=== PATIENT | female | born 1930 | race Caucasian/White ===

== ENCOUNTER → 2017-07-03 | Outpatient (CLI) | payer MEDICARE ==
[~2017-07-03] MED LIST: AC500T PO; ALPR.25T; ASP81CT PO; ASPI-86; CALC-665 PO; CALCIUM; CEPH500C PO; CETI10TA17 PO; DCS100C PO; DLT120CCR PO; DLT240CCR; FIBERCON; GLYC1SUP RC; GUAI1TBM7 PO; HYDR-3583 PO; MTF500T; MTR250T PO; MULT-608 PO; NITR-65 PO; ONDAN4ODT PO; OXYC-12; PRAZ2CAP; PRAZ2CAP PO; PRV20T; SIMV20TA3 PO; SMV10T PO; SULF1TAB38 PO; TRIA1TAB2
--- NOTE | 2017-07-03 19:43 | Diagnostic Imaging Report ---
Bilateral screening mammogram 2D views with tomosynthesis The current study was also evaluated with a Computer Aided Detection (CAD) system. INDICATION: Screening. No current complaints stated on the questionnaire. COMPARISON: 06/27/2016. FINDINGS: The breasts are composed of scattered fibroglandular densities. There are scattered benign-appearing calcifications seen. Allowing for technique and positional differences, no suspicious change is seen. IMPRESSION: No significant change. ACR BI-RADS Category 2: Benign findings. Result letter will be mailed to the patient. Note: At least 10% of breast cancer is not imaged by mammography. Dictated by: Dictated on workstation # [id number]
== END ==
LOC: RAD 14:31
PROVIDERS: ATTEND Internal Medicine
DX: Z12.31 Encounter for screening mammogram for malignant neoplasm of breast (principal)
CPT/HCPCS: 77067

== ENCOUNTER → 2017-08-06 | Outpatient (CLI) | payer MEDICARE ==
--- NOTE | 2017-08-06 16:42 | Diagnostic Imaging Report ---
PROCEDURE: CT lumbar spine without contrast. TECHNIQUE: Multiple contiguous axial images were obtained through the lumbar spine without the use of intravenous contrast. Sagittal and coronal reformations were then performed. INDICATION: Back pain, right hip pain. Comparison limited to abdominopelvic axial CT without reconstructions dated October 2010. FINDINGS: A stone measuring at least 7 mm within the left lower pole renal calyx extends outside the [id number]. The visualized portions of the kidneys suggest there is no hydronephrosis. The calcified abdominal aorta and renal arteries were nonaneurysmal. Bones do appear demineralized and osteopenia is suggested. This not only increases the risk of fracture but can make nondisplaced and nondepressed injuries radiographically imperceptible. The pedicles and pars appear to be intact. There is grade 1 presumed degenerative anterolisthesis of L4 on L5. The posterior cortices off 3-4 mm. Remaining levels were aligned anatomically. Lumbar statures are normal and no acute or suspicious endplate irregularity is apparent. T12-L1: There is no stenosis. L1-L2: Mild degenerative changes with no stenosis. L2-L3: There is ligamentous thickening, facet arthrosis, partly calcified bulging disc material and endplate osteophytes. The constellation of findings conspire to result in at least moderate severity of canal stenosis without significant foraminal narrowing. L3-L4: Ligamentous thickening, facet arthrosis, disc bulge and endplate osteophytes result in moderate to severe canal stenosis with at least mild degrees of biforaminal narrowing. L4-L5: The malalignment, the ligamentous thickening, bulky hypertrophic facet arthrosis and bulging disc material conspire to result in at least moderate canal stenosis with mild left and moderate severity right foraminal stenosis. L5-S1: There is no significant stenosis. IMPRESSION: 1. No acute lumbar osseous pathology. Degenerative changes believed to account for mild grade 1 listhesis of L4 on L5. Mid to lower spondylosis and facet arthrosis result in multilevel canal and foraminal stenoses of varying severities listed level by level above. 2. Apparent nonobstructing left renal calculus and nonaneurysmal atherosclerosis. Dictated by: Dictated on workstation # [id number]
--- NOTE | 2017-08-06 20:39 | Diagnostic Imaging Report ---
PA and lateral views of the chest. INDICATION: Cough. COMPARISON: 09/29/2014. FINDINGS: The lungs are hyperinflated. There are prominent interstitial markings which appear to be chronic. No focal airspace consolidation. The heart size is mildly enlarged. No effusion or pneumothorax. The mediastinum and luis a appear unremarkable. There is suggestion of old left rib fractures. IMPRESSION: Cardiomegaly. COPD. Dictated by: Dictated on workstation # [id number]
== END ==
LOC: RAD 13:59
PROVIDERS: ATTEND Internal Medicine
DX: M48.061 Spinal stenosis, lumbar region without neurogenic claudication (principal); M51.26 Other intervertebral disc displacement, lumbar region; M99.73 Connective tissue and disc stenosis of intervertebral foramina of lumbar region; M47.816 Spondylosis without myelopathy or radiculopathy, lumbar region; M43.16 Spondylolisthesis, lumbar region; M46.86 Other specified inflammatory spondylopathies, lumbar region; I51.7 Cardiomegaly; J44.9 Chronic obstructive pulmonary disease, unspecified
CPT/HCPCS: 71020; 72131

== ENCOUNTER → 2018-07-09 | Outpatient (CLI) | payer MEDICARE ==
--- NOTE | 2018-07-10 19:06 | Diagnostic Imaging Report ---
INDICATION: Routine screening. COMPARISON: Prior mammogram from 07/03/2017 and 06/27/2016. EXAMINATION: 2D and 3D bilateral screening mammography was performed with CAD. FINDINGS: Scattered fibroglandular densities are identified, bilaterally. There are benign calcifications scattered throughout both breasts. No mass or malignant appearing microcalcifications are seen. The axillae are unremarkable. IMPRESSION: No mammographic features suspicious for malignancy are identified. ACR BI-RADS Category 2: Benign findings. Result letter will be mailed to the patient. Note: At least 10% of breast cancer is not imaged by mammography. Dictated by: Dictated on workstation # [id number]
== END ==
LOC: RAD 15:28
PROVIDERS: ATTEND Nurse Practitioner Family
DX: Z12.31 Encounter for screening mammogram for malignant neoplasm of breast (principal)
CPT/HCPCS: 77067

== ENCOUNTER 2019-05-24 10:05 | Emergency (ER) | payer MEDICARE ==
[~2019-05-24] VITALS: Ht 147 cm; Wt 64.3 kg
[2019-05-24] MEDS ORDERED: ONDANSETRON 4 MG/2 ML (SDV) Z0FRAN IVP ONE (10:45)
[2019-05-24 10:55] LABS: BILIRUBIN,URINE NEGATIVE (NEGATIVE); CLARITY,URINE CLEAR; COLOR,URINE YELLOW; GLUCOSE, URINE (UA) NEGATIVE (NEGATIVE); KETONES,URINE NEGATIVE (NEGATIVE); LEUKOCYTE ESTERASE ,URINE 3+ (NEGATIVE); NITRITE,URINE POSITIVE (NEGATIVE); PH,URINE 5 (5-9); PROTEIN,URINE 2+ (NEGATIVE); UROBILINOGEN,URINE NORMAL (NORMAL)
[2019-05-24 11:05] LABS: BACTERIA,URINE LARGE /HPF; SQUAMOUS EPITHELIAL CELL,UR RARE /HPF; WBC,URINE TNTC /HPF
[2019-05-24 11:11] VITALS: BP 146/63
[2019-05-24 11:14] LABS: BASOPHILS # (AUTO) 0.1 10^3/uL (0.0-0.1); BASOPHILS % (AUTO) 1 % (0-10); EOSINOPHILS # (AUTO) 0.1 10^3/uL (0.0-0.3); EOSINOPHILS % (AUTO) 2 % (0-10); HEMATOCRIT 33 % (35-52); HEMOGLOBIN 10.7 G/DL (11.5-16.0); LYMPHOCYTES # (AUTO) 0.9 X 10^3 (1.0-4.0); LYMPHOCYTES % (AUTO) 20 % (12-44); MEAN CORPUSCULAR HEMOGLOBIN 29 PG (25-34); MEAN CORPUSCULAR HGB CONC 33 G/DL (32-36); MEAN CORPUSCULAR VOLUME 88 FL (80-99); MEAN PLATELET VOLUME 12.3 FL (7.4-10.4); MONOCYTES # (AUTO) 0.4 X 10^3 (0.0-1.0); MONOCYTES % (AUTO) 10 % (0-12); NEUTROPHILS # (AUTO) 3.1 X 10^3 (1.8-7.8); NEUTROPHILS % (AUTO) 68 % (42-75); PLATELET COUNT 149 10^3/uL (130-400); RED CELL DISTRIBUTION WIDTH 12.7 % (10.0-14.5); WHITE BLOOD COUNT 4.6 10^3/uL (4.3-11.0)
[2019-05-24 11:23] LABS: PROTHROMBIN TIME PATIENT 13.7 SEC (12.2-14.7)
--- NOTE | 2019-05-24 11:25 | Diagnostic Imaging Report ---
EXAMINATION: CT head without contrast. TECHNIQUE: Multiple contiguous axial images were obtained through the brain without the use of intravenous contrast. All CT scans use one or more of the following dose optimizing techniques: automated exposure control, MA and/or KvP adjustment based on a patient size and exam type, or iterative reconstruction. HISTORY: Headache FINDINGS: No comparison available The avalos-white matter differentiation is normal. No mass effect or midline shift. The ventricles are normal in size and configuration. Basilar cisterns are patent. There are no intra- or extra-axial fluid collections. There is no intracranial hemorrhage. There have been bilateral lens replacements. Mastoid air cells are clear. No soft tissue abnormality is seen. No osseus lesions or fractures are seen. IMPRESSION: 1. No acute intracranial abnormality. Dictated by: Dictated on workstation # [id number]
--- NOTE | 2019-05-24 11:28 | Diagnostic Imaging Report ---
EXAMINATION: Chest 1 view HISTORY: Headache FINDINGS: Comparison is 08/06/2017. Left subclavian pacemaker is present with leads in the right atrium and right ventricle. There is minimal left base atelectasis. No pneumothorax. No edema or pneumonia. Heart size is normal. IMPRESSION: 1. Minimal left base atelectasis. Dictated by: Dictated on workstation # [id number]
[2019-05-24 11:32] LABS: ALANINE AMINOTRANSFERASE 16 U/L (0-55); ALKALINE PHOSPHATASE 56 U/L (40-136); BILIRUBIN,TOTAL 0.4 MG/DL (0.1-1.0); BUN/CREATININE RATIO 21; CALCIUM 9.2 MG/DL (8.5-10.1); CARBON DIOXIDE 22 MMOL/L (21-32); CHLORIDE 108 MMOL/L (98-107); CREATININE SERUM 1.15 MG/DL (0.60-1.30); GFR ESTIMATED 45; GLUCOSE 183 MG/DL (70-105); POTASSIUM 4.1 MMOL/L (3.6-5.0); SODIUM 139 MMOL/L (135-145); TOTAL PROTEIN 7.1 GM/DL (6.4-8.2)
[2019-05-24 11:52] LABS: TSH (THYROID ANALYZER) 0.18 UIU/ML (0.35-4.94)
[2019-05-24] MEDS ORDERED: KETOROLAC 30 MG/ML VIAL ONE (12:17)
[2019-05-24] MEDS ORDERED: CIPR-225 PO (12:18)
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
[2019-05-24 12:22] VITALS: BP 163/38
[2019-05-24] MEDS ORDERED: KETOROLAC 15 MG/ML VIAL IVP ONE (12:30)
--- NOTE | 2019-05-27 15:42 | NUR ---
TALKED WITH PT CONCERNING THE CIPRO BEING RESISTANT TO THE BACTERIA THAT GREW OUT IN HER URINE. EXPLAINED THAT WE WANTED TO START HER ON MACROBID. PT STATES SHE IS ALLERGIC TO IT. ADVISED HER THAT IT WAS NOT LISTED A ALLERGY ET PT STATES SHE IS ALLERGIC TO IT. PT STATES SHE IS MUCH BETTER AND HAS AN APPT WITH [facility] NEXT WEEK. ALSO STATES IF SHE BECOMES WORSE SHE WILL FOLLOW UP WITH DR PISANO.
== END 2019-05-24 12:31 | disposition home or self-care (01) ==
LOC: ER 10:05 → EDUNIT# 10:05 → ER 12:31
DX: R03.0 Elevated blood-pressure reading, without diagnosis of hypertension (principal); N39.0 Urinary tract infection, site not specified; F41.9 Anxiety disorder, unspecified; Z79.82 Long term (current) use of aspirin; Z95.0 Presence of cardiac pacemaker; Z90.710 Acquired absence of both cervix and uterus; Z87.828 Personal history of other (healed) physical injury and trauma; Z88.0 Allergy status to penicillin; Z88.2 Allergy status to sulfonamides; Z88.8 Allergy status to other drugs, medicaments and biological substances
CPT/HCPCS: 36415; 70450; 71045; 80053; 81000; 83735; 83880; 84439; 84443; 84484; 85025; 85610; 85730; 87077; 87088; 87186; 93005; 93041

== ENCOUNTER → 2019-07-02 | Outpatient (CLI) | payer MEDICARE ==
[~2019-07-02] MED LIST changes: +CIPR-225 PO
== END ==
LOC: CARD 12:19
PROVIDERS: ATTEND Internal Medicine Interventional Cardiology
DX: I08.0 Rheumatic disorders of both mitral and aortic valves (principal)
CPT/HCPCS: 93306

== ENCOUNTER → 2019-07-10 | Outpatient (CLI) | payer MEDICARE ==
[~2019-07-10] MED LIST changes: +ONDA4TAB11 SL
--- NOTE | 2019-07-13 08:45 | Diagnostic Imaging Report ---
INDICATION: Screening. TECHNIQUE: The current study was also evaluated with a Computer Aided Detection (CAD) system. 3D Tomographic imaging was also performed. 3D tomosynthesis was performed and reviewed. COMPARISON: 07/09/2018, 07/03/2017, and 06/27/2016. FINDINGS: There are scattered fibroglandular densities bilaterally. There are benign type calcifications. There is no dominant mass, spiculated lesion, or suspicious calcification identified. The skin, nipples, and axillae are unremarkable. IMPRESSION: Benign findings. ACR BI-RADS Category 2: Benign findings. Result letter will be mailed to the patient. Note: At least 10% of breast cancer is not imaged by mammography. Dictated by: Dictated on workstation # [id number]
== END ==
LOC: RAD 14:13
PROVIDERS: ATTEND Internal Medicine
DX: Z12.31 Encounter for screening mammogram for malignant neoplasm of breast (principal)
CPT/HCPCS: 77067

== ENCOUNTER 2019-08-06 18:32 | Emergency (ER) | payer MEDICARE ==
[~2019-08-06] VITALS: Ht 149 cm; Wt 62.0 kg
[~2019-08-06 18:32] MED LIST changes: -ONDA4TAB11 SL
[2019-08-06] MEDS ORDERED: NS IV 1000 ML 1,000 ML IV ONE (18:50)
[2019-08-06] MEDS ORDERED: KETOROLAC 30 MG/ML VIAL IVP ONE (19:00)
[2019-08-06] MEDS ORDERED: ONDANSETRON 4 MG/2 ML (SDV) Z0FRAN IVP ONE (19:00)
[2019-08-06 19:02] LABS: BASOPHILS % (AUTO) 0 % (0-10); EOSINOPHILS % (AUTO) 1 % (0-10); HEMATOCRIT 35 % (35-52); HEMOGLOBIN 11.4 G/DL (11.5-16.0); LYMPHOCYTES # (AUTO) 0.4 X 10^3 (1.0-4.0); LYMPHOCYTES % (AUTO) 5 % (12-44); MEAN CORPUSCULAR HEMOGLOBIN 29 PG (25-34); MEAN CORPUSCULAR HGB CONC 32 G/DL (32-36); MEAN CORPUSCULAR VOLUME 88 FL (80-99); MEAN PLATELET VOLUME 11.6 FL (7.4-10.4); MONOCYTES # (AUTO) 0.6 X 10^3 (0.0-1.0); MONOCYTES % (AUTO) 7 % (0-12); NEUTROPHILS # (AUTO) 7.2 X 10^3 (1.8-7.8); NEUTROPHILS % (AUTO) 87 % (42-75); PLATELET COUNT 128 10^3/uL (130-400); RED CELL DISTRIBUTION WIDTH 14.1 % (10.0-14.5); WHITE BLOOD COUNT 8.2 10^3/uL (4.3-11.0)
[2019-08-06 19:22] LABS: ALBUMIN 4.2 GM/DL (3.2-4.5); BILIRUBIN,TOTAL 0.5 MG/DL (0.1-1.0); CREATININE SERUM 1.11 MG/DL (0.60-1.30); POTASSIUM 4.6 MMOL/L (3.6-5.0); TOTAL PROTEIN 6.8 GM/DL (6.4-8.2)
[2019-08-06 19:28] LABS: BAND NEUTROPHILS 6 %; LYMPHOCYTES % (MANUAL) 6 %; MONOCYTES % (MANUAL) 3 %; NEUTROPHILS % (MANUAL) 85 %; RBC MORPH NORMAL
--- NOTE | 2019-08-06 19:36 | ED General ---
General Chief Complaint: Abdominal/GI Problems Stated Complaint: UPSET STOMACH, HEADACHE, CHILLS,BLOOD SUGAR HIGH Nursing Triage Note: pt presents to ED with c/o nausea and vomiting and feelings of "being sick to her stomach" since 1100. pt also reports bilateral neck pain x 3 weeks and elevated BSG. Nursing Sepsis Screen: Possible Severe Sepsis Risk Source of Information: Patient Exam Limitations: No Limitations History of Present Illness Date Seen by Provider: Aug 06, 2019 Time Seen by Provider: 18:42 Initial Comments This 88-year-old woman presents to the emergency room with complaints of feeling very nauseous starting around 11:00. She did vomit a little bit. She feels shaky and has had headache. She has been struggling with some chronic neck pain for quite some time that is exacerbated today. Her oral intake has been poor. Blood sugar this morning was over 200. More recently was 189. She did not take her medications this morning due to nausea. She denies any significant abdominal pain or urinary symptoms. 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 Macdonald. She is accompanied by her daughter. She also has some chronic cough. Allergies and Home Medications Allergies Coded Allergies: Amoxicillin (Verified Allergy, Unknown, 04/23/09) Sulfa (Sulfonamides) (Verified Allergy, Unknown, 04/24/09) Uncoded Allergies: TRIMOX (Allergy, Mild, 03/31/09) ENVIRONMENTAL (Allergy, 10/12/10) nasal drainage Home Medications Aspirin 81 Mg Chew, 81 MG PO DAILY, (Reported) Calcium Carb/Vit D3/Minerals 1 Each Tab.chew, 1 EACH PO DAILY, (Reported) Cephalexin Monohydrate 500 Mg Capsule, 1 EACH PO TID, (Reported) Cetirizine Hcl 10 Mg Tablet, 10 MG PO DAILY, (Reported) Ciprofloxacin HCl 500 Mg Tablet, 500 MG PO BID Prescribed by: ELIAN TAYLOR on 05/24/19 1218 Diltiazem Hcl 120 Mg Cap.sr.24h, 1 CAP PO DAILY, (Reported) DO NOT CRUSH Docusate Sodium 100 Mg Cap, 100-200 MG PO DAILY, (Reported) Glycerin 1 Supp.rect Supp.rect, 1 SUPP.RECT RC, (Reported) Guaifenesin/Dextromethorphan 1 Each Tab, 1 EACH PO DAILY, (Reported) Hydrocodone Bit/Acetaminophen 1 Tab Tab, 1-2 EA PO Q4HR PRN, (Reported) Metronidazole 250 Mg Tab, 1 EACH PO TID, (Reported) Multivitamins 1 Tab Tablet, 1 TAB PO DAILY, (Reported) Ondansetron 4 Mg Tab.rapdis, 4 MG SL Q4H Prescribed by: FLAVIA VARELA on 08/06/192020 Prazosin Hcl 2 Mg Capsule, 2 MG PO TID, (Reported) Simvastatin 20 Mg Tablet, 20 MG PO DAILY, (Reported) Patient Home Medication List Home Medication List Reviewed: Yes Review of Systems Review of Systems Constitutional: see HPI EENTM: no symptoms reported Respiratory: see HPI Cardiovascular: no symptoms reported Gastrointestinal: see HPI Genitourinary: no symptoms reported Musculoskeletal: no symptoms reported Skin: no symptoms reported Psychiatric/Neurological: See HPI Hematologic/Lymphatic: No Symptoms Reported Immunological/Allergic: no symptoms reported Past Xbmcxgp-Shrjiz-Subrum Hx Past Med/Social Hx: Reviewed and Corrections made Patient Social History Alcohol Use: Denies Use Recreational Drug Use: No 2nd Hand Smoke Exposure: No Recent Foreign Travel: No Contact w/Someone Who Travel: No Recent Infectious Disease Expo: No Recent Hopitalizations: No (PACEMAKER PLACED 03/2019) Seasonal Allergies Seasonal Allergies: No Past Medical History Surgeries: Yes Abdominal, Appendectomy, Eye Surgery, Gallbladder, Hysterectomy, Oophorectomy, Orthopedic, Pacemaker, Tonsillectomy, Tracheostomy Respiratory: No Cardiac: Yes (PACEMAKER; ? 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 Sexually Transmitted Disease: No Genitourinary: Yes UTI-Chronic Gastrointestinal: Yes (RADHA WITH ERCP AND COMMOND DUCT STONE REMOVAL 2010) Chronic Constipation, Gall Bladder Disease Musculoskeletal: Yes Arthritis, Fractures Endocrine: Yes Diabetes, Non-Insulin dep HEENT: Yes Cataract Cancer: No Psychosocial: Yes Sleep Difficulties, Anxiety Integumentary: No Blood Disorders: No Physical Exam Vital Signs Vital Signs - First Documented 08/06/19 19:13 Temp 36.6 Pulse 108 Resp 22 B/P (MAP) 138/77 (97) Pulse Ox 97 O2 Delivery Room Air Capillary Refill : Less Than 3 Seconds Height, Weight, BMI Height: '" Weight: lbs. oz. kg; 27.00 BMI Method:Stated General Appearance: No Apparent Distress, WD/WN HEENT: PERRL/EOMI, Normal ENT Inspection, Other (oropharynx somewhat dry) Neck: Normal Inspection Respiratory: Lungs Clear, Normal Breath Sounds, No Accessory Muscle Use, No Respiratory Distress Cardiovascular: No Edema, No Murmur, Tachycardia Gastrointestinal: Normal Bowel Sounds, Non Tender, Soft Extremity: Normal Inspection, No Pedal Edema Neurologic/Psychiatric: Alert, Oriented x3, No Motor/Sensory Deficits, Normal Mood/Affect, director education II-XII Norm as Tested Skin: Normal Color, Warm/Dry Progress/Results/Core Measures Suspected Sepsis Recent Fever Within 48 Hours: No Infection Criteria Present: Suspected New Infection New/Unexplained Altered Menta: No Sepsis Screen: Possible Severe Sepsis Risk SIRS Temperature: Pulse: 108 Respiratory Rate: 22 Laboratory Tests 08/06/19 18:55: White Blood Count 8.2 Blood Pressure 138 /77 Mean: 97 Laboratory Tests 08/06/19 18:55: Creatinine 1.11, Platelet Count 128L, Total Bilirubin 0.5 Results/Orders Lab Results Laboratory Tests Test 08/06/19 18:55 08/06/19 19:35 Range/Units White Blood Count 8.2 4.3-11.0 10^3/uL Red Blood Count 4.00 L 4.35-5.85 10^6/uL Hemoglobin 11.4 L 11.5-16.0 G/DL Hematocrit 35 35-52 % Mean Corpuscular Volume 88 80-99 FL Mean Corpuscular Hemoglobin 29 25-34 PG Mean Corpuscular Hemoglobin Concent 32 32-36 G/DL Red Cell Distribution Width 14.1 10.0-14.5 % Platelet Count 128 L 130-400 10^3/uL Mean Platelet Volume 11.6 H 7.4-10.4 FL Neutrophils (%) (Auto) 87 H 42-75 % Lymphocytes (%) (Auto) 5 L 12-44 % Monocytes (%) (Auto) 7 0-12 % Eosinophils (%) (Auto) 1 0-10 % Basophils (%) (Auto) 0 0-10 % Neutrophils # (Auto) 7.2 1.8-7.8 X 10^3 Lymphocytes # (Auto) 0.4 L 1.0-4.0 X 10^3 Monocytes # (Auto) 0.6 0.0-1.0 X 10^3 Eosinophils # (Auto) 0.0 0.0-0.3 10^3/uL Basophils # (Auto) 0.0 0.0-0.1 10^3/uL Neutrophils % (Manual) 85 % Lymphocytes % (Manual) 6 % Monocytes % (Manual) 3 % Band Neutrophils 6 % Blood Morphology Comment NORMAL Sodium Level 139 135-145 MMOL/L Potassium Level 4.6 3.6-5.0 MMOL/L Chloride Level 108 H 98-107 MMOL/L Carbon Dioxide Level 19 L 21-32 MMOL/L Anion Gap 12 5-14 MMOL/L Blood Urea Nitrogen 31 H 7-18 MG/DL Creatinine 1.11 0.60-1.30 MG/DL Estimat Glomerular Filtration Rate 46 BUN/Creatinine Ratio 28 Glucose Level 182 H 70-105 MG/DL Calcium Level 9.0 8.5-10.1 MG/DL Corrected Calcium 8.8 8.5-10.1 MG/DL Total Bilirubin 0.5 0.1-1.0 MG/DL Aspartate Amino Transf (AST/SGOT) 19 5-34 U/L Alanine Aminotransferase (ALT/SGPT) 18 0-55 U/L Alkaline Phosphatase 52 40-136 U/L Total Protein 6.8 6.4-8.2 GM/DL Albumin 4.2 3.2-4.5 GM/DL Lipase 16 8-78 U/L Urine Color YELLOW Urine Clarity CLEAR Urine pH 5.5 5-9 Urine Specific Catarina >=1.030 1.016-1.022 Urine Protein TRACE NEGATIVE Urine Glucose (UA) NEGATIVE NEGATIVE Urine Ketones NEGATIVE NEGATIVE Urine Nitrite NEGATIVE NEGATIVE Urine Bilirubin NEGATIVE NEGATIVE Urine Urobilinogen 0.2 < = 1.0 MG/DL Urine Leukocyte Esterase NEGATIVE NEGATIVE Urine RBC (Auto) NEGATIVE NEGATIVE Urine RBC 0-2 /HPF Urine WBC 2-5 /HPF Urine Crystals NONE /LPF Urine Bacteria TRACE /HPF Urine Casts NONE /LPF Urine Mucus NEGATIVE /LPF Urine Culture Indicated NO Micro Results Microbiology 08/06/19 Influenza Types A,B Antigen (APOORVA) - Final, Complete My Orders Orders - FLAVIA MCNEAL MD Cbc With Automated Diff (08/06/19 18:38) Comprehensive Metabolic Panel (08/06/19 18:38) Lipase (08/06/19 18:38) Ua Culture If Indicated (08/06/19 18:38) Ed Iv/Invasive Line Start (08/06/19 18:38) Ns Iv 1000 Ml (Sodium Chloride 0.9%) (08/06/19 18:50) Ondansetron Injection (Zofran Injectio (08/06/19 19:00) Chest 1 View, Ap/Pa Only (08/06/19 18:50) Influenza A And B Antigens (08/06/19 18:50) Ketorolac Injection (Toradol Injection) (08/06/19 19:00) Manual Differential (08/06/19 18:55) Medications Given in ED Current Medications Medications Dose Ordered Sig/Anat Route Start Time Stop Time Status Last Admin Dose Admin Ketorolac Tromethamine 10 mg ONCE ONCE IVP 08/06/19 19:00 08/06/19 19:01 DC 08/06/19 19:04 10 MG Ondansetron HCl 8 mg ONCE ONCE IVP 08/06/19 19:00 08/06/19 19:01 DC 08/06/19 19:03 8 MG Sodium Chloride 1,000 ml @ 0 mls/hr Q0M ONCE IV 08/06/19 18:50 08/06/19 18:52 DC 08/06/19 19:03 1,000 MLS/HR Vital Signs/I&O 08/06/19 08/06/19 19:13 20:19 Temp 36.6 Pulse 108 89 Resp 22 18 B/P (MAP) 138/77 (97) 119/64 Pulse Ox 97 96 O2 Delivery Room Air Room Air Capillary Refill : Less Than 3 Seconds Blood Pressure Mean: 97 POS Progress Note #1: Time: 19:35 Progress Note Workup is in progress. A liter of IV fluid has been ordered along with Zofran for nausea. Toradol 10 mg IV was ordered for headache and neck pain. Progress Note #2: Time: 20:25 Progress Note Patient was feeling much improved after hydration, Toradol, and Zofran. I instructed her not to take her amlodipine tonight as she takes multiple other doses of antihypertensives in her systolic blood pressure is only 119 at present. Diagnostic Imaging Diagonstic Imaging: Xray Plain Films/CT/US/NM/MRI: chest Comments Chest x-ray viewed by me and report reviewed. See report below: NAME: JUAN MIGUEL [facility]ILLAFANA [facility] REC#: [id number] PT STATUS: REG ER : 1930 PHYSICIAN: FLAVIA MCNEAL MD ADMIT DATE: 08/06/19/ER Signed POSDate of Exam:08/06/19 CHEST 1 VIEW, AP/PA ONLY EXAMINATION: Chest radiograph, portable AP view. DATE: 08/06/2019 7:13 PM. INDICATION: 88-year-old female, chest pain. COMPARISON: May 24, 2019. FINDINGS: There is a left-sided cardiac assist device with leads. Heart size and mediastinal contours are unchanged. There is no identified pneumothorax. There is no large pleural effusion. There is no identified focal airspace consolidation. There are chronic left rib deformities. IMPRESSION: No identified acute cardiopulmonary abnormality. Dictated by: Dictated on workstation # [id number] Dict: 08/06/191922 Trans: 08/06/191940 [id number] Interpreted by: RUFINA SHEA MD Electronically signed by: RUFINA SHEA MD 08/06/191940 Departure Impression Primary Impression: Nausea and vomiting Qualified Codes: R11.2 - Nausea with vomiting, unspecified Additional Impressions: Acute headache Qualified Codes: R51 - Headache Chronic neck pain Disposition: 01 HOME, SELF-CARE Condition: Improved Departure-Patient Inst. Decision time for Depature: 20:18 Referrals: MO MACDONALD DO (PCP/Family) Primary Care Physician Patient Instructions: Nausea and Vomiting, Adult Add. Discharge Instructions: Start with a clear liquid diet and drink plenty of clear liquids. Gradually advance your diet with small quantities of bland food as tolerated. Take Zofran (ondansetron) as prescribed for any further nausea or vomiting. For pain try taking Tylenol (acetaminophen) up to 1000 mg every 6 hours as needed. If this does not control your pain, consider taking ibuprofen one 200 mg tablet every 4 hours as needed. Return to the emergency room if you have worsening problems or concerns. Skip your amlodipine tablet tonight. All discharge instructions reviewed with patient and/or family. Voiced understanding. Scripts Ondansetron (Ondansetron Odt) 4 Mg Tab.rapdis 4 MG SL Q4H, #10 TAB Prov: FLAVIA MCNEAL MD 08/06/19 Copy Copies To 1: MO MACDONALD JOSHUA T MD Aug 06, 2019 19:36 POS
[2019-08-06 19:40] LABS: BILIRUBIN,URINE NEGATIVE (NEGATIVE); CLARITY,URINE CLEAR; COLOR,URINE YELLOW; GLUCOSE, URINE (UA) NEGATIVE (NEGATIVE); KETONES,URINE NEGATIVE (NEGATIVE); LEUKOCYTE ESTERASE ,URINE NEGATIVE (NEGATIVE); NITRITE,URINE NEGATIVE (NEGATIVE); PH,URINE 5.5 (5-9); PROTEIN,URINE TRACE (NEGATIVE)
[2019-08-06 19:49] LABS: BACTERIA,URINE TRACE /HPF; RBC,URINE 0-2 /HPF
[2019-08-06 20:19] VITALS: BP 119/64
[2019-08-06] MEDS ORDERED: ONDA4TAB11 SL (20:21)
== END 2019-08-06 20:38 | disposition home or self-care (01) ==
LOC: EDUNIT# 18:32 → ER 18:35
DX: R11.2 Nausea with vomiting, unspecified (principal); R51 Headache; M54.2 Cervicalgia; G89.29 Other chronic pain; I10 Essential (primary) hypertension; E78.00 Pure hypercholesterolemia, unspecified; E11.9 Type 2 diabetes mellitus without complications; F41.9 Anxiety disorder, unspecified; Z87.440 Personal history of urinary (tract) infections; Z88.1 Allergy status to other antibiotic agents; Z88.2 Allergy status to sulfonamides; Z88.8 Allergy status to other drugs, medicaments and biological substances; Z79.82 Long term (current) use of aspirin; Z95.0 Presence of cardiac pacemaker; Z90.49 Acquired absence of other specified parts of digestive tract; Z90.710 Acquired absence of both cervix and uterus; Z90.89 Acquired absence of other organs; Z93.0 Tracheostomy status
CPT/HCPCS: 36415; 71045; 80053; 81000; 83690; 85007; 85027; 87804; 96361; 96374; 96375

== ENCOUNTER → 2020-06-15 | Outpatient (CLI) | payer MEDICARE ==
[~2020-06-15] MED LIST changes: +ONDA4TAB11 SL
== END ==
LOC: CARD 13:00
PROVIDERS: ATTEND Internal Medicine Interventional Cardiology
DX: I11.9 Hypertensive heart disease without heart failure (principal); I44.1 Atrioventricular block, second degree; E78.01 Familial hypercholesterolemia; I35.0 Nonrheumatic aortic (valve) stenosis; Z95.0 Presence of cardiac pacemaker
CPT/HCPCS: 93306

== ENCOUNTER → 2020-06-23 | Outpatient (CLI) | payer MEDICARE ==
[~2020-06-23] MED LIST changes: +DOBUTamine DRIP 250 ML IV ONE
== END ==
LOC: CARD 12:47
PROVIDERS: ATTEND Internal Medicine Interventional Cardiology
DX: I35.0 Nonrheumatic aortic (valve) stenosis (principal); I51.9 Heart disease, unspecified; R94.30 Abnormal result of cardiovascular function study, unspecified
CPT/HCPCS: 93351

== ENCOUNTER 2021-02-11 21:46 | Emergency (ER) | payer MEDICARE ==
[~2021-02-11] VITALS: Ht 147.3 cm; Wt 65.3 kg
[~2021-02-11 21:46] MED LIST changes: -DOBUTamine DRIP 250 ML IV ONE
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
[2021-02-11 22:02] LABS: BASOPHILS # (AUTO) 0.1 10^3/uL (0.0-0.1); BASOPHILS % (AUTO) 1 % (0-10); EOSINOPHILS # (AUTO) 0.4 10^3/uL (0.0-0.3); EOSINOPHILS % (AUTO) 7 % (0-10); HEMATOCRIT 31 % (35-52); HEMOGLOBIN 10.2 g/dL (11.5-16.0); LYMPHOCYTES # (AUTO) 1.4 10^3/uL (1.0-4.0); LYMPHOCYTES % (AUTO) 28 % (12-44); MEAN CORPUSCULAR HEMOGLOBIN 30 pg (25-34); MEAN CORPUSCULAR HGB CONC 33 g/dL (32-36); MEAN CORPUSCULAR VOLUME 90 fL (80-99); MEAN PLATELET VOLUME 12.1 fL (9.0-12.2); MONOCYTES # (AUTO) 0.5 10^3/uL (0.0-1.0); MONOCYTES % (AUTO) 10 % (0-12); NEUTROPHILS # (AUTO) 2.8 10^3/uL (1.8-7.8); NEUTROPHILS % (AUTO) 53 % (42-75); PLATELET COUNT 149 10^3/uL (130-400); WHITE BLOOD COUNT 5.2 10^3/uL (4.3-11.0)
[2021-02-11 22:13] LABS: PROTHROMBIN TIME PATIENT 13.1 SEC (12.2-14.7)
[2021-02-11 22:24] LABS: ALBUMIN 4.1 GM/DL (3.2-4.5); BILIRUBIN,TOTAL 0.3 MG/DL (0.1-1.0); CALCIUM 9.7 MG/DL (8.5-10.1); CREATININE SERUM 1.12 MG/DL (0.60-1.30); MAGNESIUM 2.1 MG/DL (1.6-2.4); TOTAL PROTEIN 7.2 GM/DL (6.4-8.2)
[2021-02-11 22:31] LABS: CREATINE KINASE MB 1.3 NG/ML (<6.6)
[2021-02-11] MEDS ORDERED: FUROSEMIDE 40 MG/4 ML INJ (LASIX) IVP ONE (22:45)
[2021-02-11] MEDS ORDERED: LIDOCAINE 1% INJ 20 ML 20 ML VIAL ONE (22:54)
[2021-02-12 00:25] VITALS: BP 108/49
--- NOTE | 2021-02-12 05:47 | Diagnostic Imaging Report ---
EXAMINATION: Portable erect AP chest at 1020 PM INDICATION: Chest pain The heart is stable in size when compared to the prior exam of 08/06/2019. The left-sided pacemaker seen previously is also again evident and no different. However, the central pulmonary vascularity does seem somewhat more prominent than on the prior study. This appearance suggests that there is now an element of mild pulmonary congestion present. The lungs are otherwise generally clear. There is no pleural effusion. The mediastinum is not widened. The osseous structures are intact. IMPRESSION: The increased prominence of the central pulmonary vascularity when compared to the prior study does suggest that there is now an element of mild pulmonary congestion present. Clinical follow-up is recommended. Dictated by: Dictated on workstation # [id number]
== END 2021-02-12 00:25 | disposition short-term general hospital (02) ==
LOC: EDUNIT# 21:46 → ER 21:47
DX: I11.0 Hypertensive heart disease with heart failure (principal); I50.9 Heart failure, unspecified; R09.02 Hypoxemia; G89.29 Other chronic pain; M54.9 Dorsalgia, unspecified; E11.9 Type 2 diabetes mellitus without complications; E78.00 Pure hypercholesterolemia, unspecified; Z88.2 Allergy status to sulfonamides; Z88.1 Allergy status to other antibiotic agents; Z88.8 Allergy status to other drugs, medicaments and biological substances; Z79.891 Long term (current) use of opiate analgesic; Z79.899 Other long term (current) drug therapy; Z79.82 Long term (current) use of aspirin
CPT/HCPCS: 36415; 51702; 71045; 80053; 82150; 82550; 82553; 83690; 83735; 83874; 83880; 84484; 85025; 85610; 85730; 93005; 93041

== ENCOUNTER 2021-03-02 | Inpatient (IN) | payer MEDICARE ==
[~2021-03-02] VITALS: Ht 147.3 cm; Wt 63.3 kg
[2021-03-02] MEDS ORDERED: ONDANSETRON 4 MG/2 ML (SDV) Z0FRAN IVP ONE (00:30)
[2021-03-02 00:47] LABS: BASOPHILS # (AUTO) 0.1 10^3/uL (0.0-0.1); BASOPHILS % (AUTO) 1 % (0-10); EOSINOPHILS % (AUTO) 0 % (0-10); HEMATOCRIT 30 % (35-52); HEMOGLOBIN 9.4 g/dL (11.5-16.0); LYMPHOCYTES # (AUTO) 0.8 10^3/uL (1.0-4.0); LYMPHOCYTES % (AUTO) 8 % (12-44); MEAN CORPUSCULAR HEMOGLOBIN 30 pg (25-34); MEAN CORPUSCULAR HGB CONC 32 g/dL (32-36); MEAN CORPUSCULAR VOLUME 93 fL (80-99); MEAN PLATELET VOLUME 11.6 fL (9.0-12.2); MONOCYTES # (AUTO) 0.4 10^3/uL (0.0-1.0); MONOCYTES % (AUTO) 4 % (0-12); NEUTROPHILS # (AUTO) 8.5 10^3/uL (1.8-7.8); NEUTROPHILS % (AUTO) 86 % (42-75); PLATELET COUNT 283 10^3/uL (130-400); WHITE BLOOD COUNT 9.9 10^3/uL (4.3-11.0)
[2021-03-02 01:13] LABS: BILIRUBIN,URINE NEGATIVE (NEGATIVE); CLARITY,URINE CLEAR; COLOR,URINE YELLOW; GLUCOSE, URINE (UA) NEGATIVE (NEGATIVE); KETONES,URINE TRACE (NEGATIVE); LEUKOCYTE ESTERASE ,URINE 1+ (NEGATIVE); NITRITE,URINE POSITIVE (NEGATIVE); PH,URINE 5.5 (5-9); PROTEIN,URINE 2+ (NEGATIVE)
[2021-03-02 01:23] LABS: ALBUMIN 4.2 GM/DL (3.2-4.5); POTASSIUM 4.9 MMOL/L (3.6-5.0)
[2021-03-02 01:25] LABS: CALCIUM 9.5 MG/DL (8.5-10.1)
[2021-03-02 01:26] LABS: ERYTHROCYTE SEDIMENTATION RATE 32 MM/HR (0-30); TOTAL PROTEIN 7.2 GM/DL (6.4-8.2)
[2021-03-02 01:28] LABS: BILIRUBIN,TOTAL 0.6 MG/DL (0.1-1.0)
[2021-03-02 01:30] LABS: CREATININE SERUM 1.11 MG/DL (0.60-1.30)
[2021-03-02 01:32] LABS: MAGNESIUM 1.7 MG/DL (1.6-2.4)
[2021-03-02 01:45] LABS: CREATINE KINASE MB 3.8 NG/ML (<6.6)
[2021-03-02 01:49] LABS: BACTERIA,URINE LARGE /HPF; RBC,URINE 0-2 /HPF; WBC,URINE 25-50 /HPF
[2021-03-02] MEDS ORDERED: FUROSEMIDE 40 MG/4 ML INJ (LASIX) IVP ONE (02:00)
[2021-03-02] MEDS ORDERED: cefTRIAXone 1,000 MG in WATER (STERILE) FOR INJECTION 10 ML IV ONE (02:15)
[2021-03-02 02:37] LABS: BASOPHILS % (MANUAL) 1 %; LYMPHOCYTES % (MANUAL) 7 %; MONOCYTES % (MANUAL) 8 %; NEUTROPHILS % (MANUAL) 84 %; RBC MORPH NORMAL
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
--- NOTE | 2021-03-02 08:40 | Diagnostic Imaging Report ---
INDICATION: Shortness of air and nausea. Time of exam: 12:39 AM Correlation is made with prior chest from 02/11/2021. Heart is enlarged. Cardiac pacemaker is in place. There are congestive changes in both lungs. There is probable small bilateral effusions as well. There is no pneumothorax. IMPRESSION: Development of congestive changes when compared with exam from 02/11/2021. Dictated by: Dictated on workstation # [id number]
--- NOTE | 2021-03-02 10:02 | Consultation-Cardiology ---
HPI-Cardiology Cardiology Consultation: Date of Consultation 03/02/21 Time Seen by a Provider: 10:30 Date of Admission 03-02-21 Attending Physician Mary Ellen Hyatt MD Admitting Physician Nick Macdonald DO Consulting Physician Jo Ann Brizuela MD HPI: Chief Complaint: CHF Ms. Villafana is an 89 yr old female admitted to 511 from the ED. Her primary phlebotomy tech is Dr. Freeman at [facility]. She reports she lives at home with her who has had a stroke. She is his only care provider. She states she has had progressive dyspnea over the course of the last few days. Today it was significantly worse prompting her to come to the ED. She denies any c/o CP. She reports she had a heart attack a couple weeks ago at which time she underwent cardiac cath with intervention at [facility] in [place], [place] by Dr. Freeman. She has bruising extending down her right leg d/t having a hematoma post procedure. She reports she had an u/s on Saturday by Dr. Freeman on her right extremity and told everything was ok. She denies any c/o palpitations, syncope or near syncope. She reports her SOB has improved at this time. Review of Systems-Cardiology Review of Systems Constitutional: No chills, No fever; malaise; No weight loss, No weight gain Eyes: No vision change Ears/Nose/Throat: No epistaxis, No recent hearing loss Respiratory: As described under HPI Gastrointestinal: No constipation, No diarrhea, No nausea, No vomiting Genitourinary: No dysuria, No hematuria Musculoskeletal: back pain Skin: As described under HPI Psychiatric/Neurological: No anxiety, No depression, No seizure, No focal weakness, No syncope Hematologic: No bleeding abnormalities FTC-[id number]-Dtojbp Hx Patient Social History Smoking Status: Never a Smoker 2nd Hand Smoke Exposure: No Immunizations Up To Date Tetanus Booster (TDap): More than 5yrs Past Medical History PMH As described under Assessment. Family Medical History Family Medical History: Reports father had CAD Allergies and Home Medications Allergies Coded Allergies: Sulfa (Sulfonamide Antibiotics) (Verified Allergy, Unknown, 04/24/09) amoxicillin (Verified Allergy, Unknown, 04/23/09) Uncoded Allergies: TRIMOX (Allergy, Mild, 03/31/09) ENVIRONMENTAL (Allergy, Unknown, 06/15/20) nasal drainage Home Medications Acetaminophen 500 Mg Tablet, 500-1,000 MG PO Q8H PRN for PAIN-MILD (1-4), (Reported) Last Action: Reviewed Aspirin 81 Mg Tablet.dr, 81 MG PO HS, (Reported) Last Action: Held Atorvastatin Calcium 40 Mg Tablet, 40 MG PO HS, (Reported) Last Action: Continued Cetirizine HCl 10 Mg Tablet, 10 MG PO DAILY, (Reported) Last Action: Reviewed Cholecalciferol (Vitamin D3) 25 Mcg Capsule, 25 MCG PO DAILY, (Reported) Last Action: Reviewed Clopidogrel Bisulfate 75 Mg Tablet, 75 MG PO DAILY, (Reported) Last Action: Continued Cranberry Conc/Ascorbic Acid 1 Each Capsule, 1 EACH PO DAILY, (Reported) Last Action: Reviewed Metformin HCl 500 Mg Tablet, 1,000 MG PO BID, (Reported) TAKES 2 (500MG) TABS Last Action: Continued Multivitamin 1 Each Tablet, 1 EACH PO DAILY, (Reported) Last Action: Reviewed Sertraline HCl 25 Mg Tablet, 25 MG PO BID, (Reported) Last Action: Reviewed Physical Exam-Cardiology Physical Exam Vital Signs/I&O 03/03/21 03/03/21 03/03/21 03/03/21 00:03 00:07 01:00 03:42 Temp 34.6 Pulse 64 80 Resp 21 B/P (MAP) 95/54 (68) Pulse Ox 97 O2 Delivery Room Air Nasal Cannula Room Air O2 Flow Rate 2.00 03/03/21 03/03/21 04:02 07:00 Temp 35.4 Pulse 60 68 Resp 21 B/P (MAP) 111/56 (74) Pulse Ox 96 O2 Delivery Nasal Cannula O2 Flow Rate 2.00 03/03/21 00:00 Intake Total 580 ml Output Total 1625 ml Balance -1045 ml Capillary Refill : Less Than 3 Seconds Constitutional: AAO x 3, well-developed, well-nourished HEENT: PERRL, hearing is well preserved, oral hygience is good Neck: No carotid bruit; carotid pulses are 2 + bilaterally Respiratory: No accessory muscle use, No respiratory distress; chest expansion is symmetric, chest is bilaterally symmetric, crackles (bi-basiler) Cardiovascular: regular rate-rhythm; No JVD; S1 and S2, systolic murmur Gastrointestinal: No tender; soft, round, audible bowel sounds Extremities: no lower extremity edema bilateral Neurologic/Psychiatric: grossly intact (moves all extremities) Skin: other (bruising extending from right groin, thigh, knee, calve, ankle and toes) Data Review Labs Laboratory Tests 03/02/21 11:25: B-Type Natriuretic Peptide 4017.1H 03/02/21 21:02: Glucometer 97 03/03/21 04:10: B-Type Natriuretic Peptide 2578.7H, White Blood Count 6.3, Red Blood Count 2.98L , Hemoglobin 8.7L, Hematocrit 28L, Mean Corpuscular Volume 95, Mean Corpuscular Hemoglobin 29, Mean Corpuscular Hemoglobin Concent 31L, Red Cell Distribution Width 14.4, Platelet Count 219, Mean Platelet Volume 11.7, Immature Granulocyte % (Auto) 1, Neutrophils (%) (Auto) 61, Lymphocytes (%) (Auto) 21, Monocytes (%) (Auto) 11, Eosinophils (%) (Auto) 6, Basophils (%) (Auto) 1, Neutrophils # (Auto) 3.8, Lymphocytes # (Auto) 1.3, Monocytes # (Auto) 0.7, Eosinophils # (Auto) 0.4H, Basophils # (Auto) 0.1, Immature Granulocyte # (Auto) 0.0, Sodium Level 139, Potassium Level 4.4, Chloride Level 104, Carbon Dioxide Level 23, Anion Gap 12, Blood Urea Nitrogen 34H, Creatinine 1.39H, Estimat Glomerular Filtration Rate 36, BUN/Creatinine Ratio 24, Glucose Level 95, Calcium Level 8.8, Magnesium Level 1.7 Radiology NAME: JUAN MIGUEL VILLAFANA [facility] REC#: [id number] PT STATUS: REG ER : 1931 PHYSICIAN: ELIAN TAYLOR DO ADMIT DATE: 03/02/21/ER Draft Date of Exam:03/02/21 CHEST 1 VIEW, AP/PA ONLY INDICATION: Shortness of air and nausea. Time of exam: 12:39 AM Correlation is made with prior chest from 02/11/2021. Heart is enlarged. Cardiac pacemaker is in place. There are congestive changes in both lungs. There is probable small bilateral effusions as well. There is no pneumothorax. IMPRESSION: Development of congestive changes when compared with exam from 02/11/2021. Dictated on workstation # [id number] Dict: 03/02/21 0836 Trans: 03/02/21 0839 [facility] [id number] Interpreted by: CORBY VILLEDA MD Electronically signed by: ECG Impression ECG Comment V-paced A/P-Cardiology Assessment/Admission Diagnosis Acute on chronic systolic CHF Mildly elevated troponin likely secondary decompensated CHF CAD: - NSTSEMI 02-12-21 - cardiac cath by Dr. Freeman at [facility] at which time she underwent synergy 3.0 x 20 stent placed to the prox to mid LAD and synergy 2.5 x 24 mm stent to the ostium to the prox diagonal vessel- ICM: - Echocardiogram of 06-15-[address] Yanez showed LVEF 25-30%. Mod to severe aortic stenosis with valve area 0.92 cm2. PASP 35-40mmHg - LVEF 35% at time of cardiac cath at [facility] by Dr. Freeman on 02-13-21 SSS documented in note of 02-14-21 from [facility] by Dr. Tobias - PPM implanted 02-19-19 at [facility] ([facility]) - unsure of when last device check was done Aortic stenosis: - severe per echo of 06-15-[address] Yanez - documented to be mild to mod aortic stenosis at time of cardiac cath on 02-13-[address] Freeman at [facility] UTI - managment per medical services Discussion and Recomendations Acute on chronic systolic CHF - treat with diuretics Request records from [place] Continue home medications including Plavix and ASA d/t recent stenting Echocardiogram to eval structure and function Monitor lab closely Replace electrolytes as indicated We would like to thank medical services for this consult Further recs will be based on her hospital course TIAGO BAIRD Mar 02, 2021 10:02
[2021-03-02] MEDS: ASPIRIN 81 MG CHEW (CHILDREN'S ASA) PO SCH (11:14)
[2021-03-02] MEDS: CLOPIDOGREL 75 MG (PLAVIX) TABLET PO SCH (11:14)
[2021-03-02] MEDS ORDERED: CLOP75TA28 PO (12:29)
[2021-03-02] MEDS ORDERED: MULT-1136 PO (12:29)
[2021-03-02] MEDS ORDERED: SERT-412 PO (12:29)
[2021-03-02] MEDS ORDERED: CRAN1CAP9 PO (12:29)
[2021-03-02] MEDS ORDERED: CHOL100048 PO (12:29)
[2021-03-02] MEDS ORDERED: ATOR40TA70 PO (12:29)
[2021-03-02] MEDS ORDERED: CETI10TA17 PO (12:29)
[2021-03-02] MEDS ORDERED: ACET-2267 PO (12:29)
[2021-03-02] MEDS ORDERED: ASPI-1238 PO (12:29)
[2021-03-02] MEDS ORDERED: METF-397 PO (12:29)
[2021-03-02 12:37] VITALS: BP 102/46
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
[2021-03-02 16:00] VITALS: BP 95/54
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
[2021-03-02] MEDS: metFORMIN 500 MG (GLUCOPHAGE) TAB PO SCH (19:38)
[2021-03-02 20:00] VITALS: BP 102/58
[2021-03-02] MEDS ORDERED: ENOXAPARIN 40 MG/0.4 ML (LOVENOX) SYR SC SCH (21:15)
[2021-03-03 00:07] VITALS: BP 95/54
[2021-03-03 04:02] VITALS: BP 111/56
[2021-03-03 04:44] LABS: POTASSIUM 4.4 MMOL/L (3.6-5.0)
[2021-03-03 04:45] LABS: CALCIUM 8.8 MG/DL (8.5-10.1)
[2021-03-03 04:50] LABS: CREATININE SERUM 1.39 MG/DL (0.60-1.30)
[2021-03-03 04:52] LABS: MAGNESIUM 1.7 MG/DL (1.6-2.4)
[2021-03-03 05:00] LABS: BASOPHILS # (AUTO) 0.1 10^3/uL (0.0-0.1); BASOPHILS % (AUTO) 1 % (0-10); EOSINOPHILS # (AUTO) 0.4 10^3/uL (0.0-0.3); EOSINOPHILS % (AUTO) 6 % (0-10); HEMATOCRIT 28 % (35-52); HEMOGLOBIN 8.7 g/dL (11.5-16.0); LYMPHOCYTES # (AUTO) 1.3 10^3/uL (1.0-4.0); LYMPHOCYTES % (AUTO) 21 % (12-44); MEAN CORPUSCULAR HEMOGLOBIN 29 pg (25-34); MEAN CORPUSCULAR HGB CONC 31 g/dL (32-36); MEAN CORPUSCULAR VOLUME 95 fL (80-99); MEAN PLATELET VOLUME 11.7 fL (9.0-12.2); MONOCYTES # (AUTO) 0.7 10^3/uL (0.0-1.0); MONOCYTES % (AUTO) 11 % (0-12); NEUTROPHILS # (AUTO) 3.8 10^3/uL (1.8-7.8); NEUTROPHILS % (AUTO) 61 % (42-75); PLATELET COUNT 219 10^3/uL (130-400); WHITE BLOOD COUNT 6.3 10^3/uL (4.3-11.0)
[2021-03-03] MEDS ORDERED: KCL 20 MEQ TAB (K-DUR) PO SCH (07:00)
[2021-03-03] MEDS ORDERED: FUROSEMIDE 40 MG/4 ML INJ (LASIX) IV SCH (07:00)
[2021-03-03 08:00] VITALS: BP 109/56
[2021-03-03] MEDS ORDERED: CLOPIDOGREL 75 MG (PLAVIX) TABLET PO SCH (09:00)
--- NOTE | 2021-03-03 09:00 | Progress Note - Cardiology ---
Cardiology SOAP Progress Note Subjective: Sitting up in bed eating morning meal. She states she feels her breathing is better this morning. No c/o CP, palpitations. Objective: I&O/Vital Signs 03/03/21 03/03/21 03/03/21 03/03/21 00:03 00:07 01:00 03:42 Temp 34.6 Pulse 64 80 Resp 21 B/P (MAP) 95/54 (68) Pulse Ox 97 O2 Delivery Room Air Nasal Cannula Room Air O2 Flow Rate 2.00 03/03/21 03/03/21 04:02 07:00 Temp 35.4 Pulse 60 68 Resp 21 B/P (MAP) 111/56 (74) Pulse Ox 96 O2 Delivery Nasal Cannula O2 Flow Rate 2.00 03/03/21 00:00 Intake Total 580 ml Output Total 1625 ml Balance -1045 ml Constitutional: AAO x 3, well-developed, well-nourished Respiratory: No accessory muscle use, No respiratory distress; chest expansion is symmetric, chest is bilaterally symmetric, crackles (bi-basiler) Cardiovascular: regular rate-rhythm; No JVD; S1 and S2, systolic murmur Gastrointestional: No tender; soft, round, audible bowel sounds Extremities: no lower extremity edema bilateral Neurologic/Psychiatric: grossly intact (moves all extremities) Skin: other (bruising extending from right groin, thigh, knee, calve, ankle and toes) Results/Procedures: Labs Laboratory Tests 03/02/21 11:25: B-Type Natriuretic Peptide 4017.1H 03/02/21 21:02: Glucometer 97 03/03/21 04:10: B-Type Natriuretic Peptide 2578.7H, White Blood Count 6.3, Red Blood Count 2.98L , Hemoglobin 8.7L, Hematocrit 28L, Mean Corpuscular Volume 95, Mean Corpuscular Hemoglobin 29, Mean Corpuscular Hemoglobin Concent 31L, Red Cell Distribution Width 14.4, Platelet Count 219, Mean Platelet Volume 11.7, Immature Granulocyte % (Auto) 1, Neutrophils (%) (Auto) 61, Lymphocytes (%) (Auto) 21, Monocytes (%) (Auto) 11, Eosinophils (%) (Auto) 6, Basophils (%) (Auto) 1, Neutrophils # (Auto) 3.8, Lymphocytes # (Auto) 1.3, Monocytes # (Auto) 0.7, Eosinophils # (Auto) 0.4H, Basophils # (Auto) 0.1, Immature Granulocyte # (Auto) 0.0, Sodium Level 139, Potassium Level 4.4, Chloride Level 104, Carbon Dioxide Level 23, Anion Gap 12, Blood Urea Nitrogen 34H, Creatinine 1.39H, Estimat Glomerular Filtration Rate 36, BUN/Creatinine Ratio 24, Glucose Level 95, Calcium Level 8.8, Magnesium Level 1.7 Laboratory Tests 03/02/21 00:42 03/03/21 04:10 A/P: Assessment: Acute on chronic systolic CHF Mildly elevated troponin likely secondary decompensated CHF CAD: - NSTSEMI 02-12-21 - cardiac cath by Dr. Freeman at [facility] at which time she underwent synergy 3.0 x 20 stent placed to the prox to mid LAD and synergy 2.5 x 24 mm stent to the ostium to the prox diagonal vessel- ICM: - Echocardiogram of 06-15-[address] Yanez showed LVEF 25-30%. Mod to severe aortic stenosis with valve area 0.92 cm2. PASP 35-40mmHg - LVEF 35% at time of cardiac cath at [facility] by Dr. Freeman on 02-13-21 SSS documented in note of 02-14-21 from [facility] by Dr. Tobias - PPM implanted 02-19-19 at [facility] ([facility]) - unsure of when last device check was done Aortic stenosis: - severe per echo of 06-15-[address] Yanez - documented to be mild to mod aortic stenosis at time of cardiac cath on 02-13-[address] Freeman at [facility] UTI - managment per medical services Plan: Acute on chronic systolic CHF - treat with diuretics Request records from [place] - have not received yet Continue Plavix and ASA d/t recent stenting BB and PATRICE-inhib if bp allows Monitor lab closely Replace electrolytes as indicated TIAGO BAIRD Mar 03, 2021 09:00
[2021-03-03] MEDS: ASPIRIN 81 MG CHEW (CHILDREN'S ASA) PO SCH (09:24)
[2021-03-03] MEDS: metFORMIN 500 MG (GLUCOPHAGE) TAB PO SCH (09:24)
[2021-03-03] MEDS: CLOPIDOGREL 75 MG (PLAVIX) TABLET PO SCH (09:24)
--- NOTE | 2021-03-03 10:43 | Physical Therapy Evaluation ---
PT Evaluation-General Medical Diagnosis Admission Date Mar 02, 2021 at 07:29 Medical Diagnosis: acute CHF/UTI/elevated troponin Onset Date: Mar 02, 2021 Therapy Diagnosis Therapy Diagnosis: generalized weakness/debility Precautions Precautions/Isolations: Standard Precautions Referral Physician: Olena Reason for Referral: Evaluation/Treatment Medical History Pertinent Medical History: CAD, DM, DC Additional Medical History recent [place] stay - 2 stents Current History ER secondary to CP and N&V Reviewed History: Yes Social History Home: Single Level Current Living Status: Spouse Prior Prior Level of Function SCALE: Activities may be completed with or without assistive devices. 2-Dplmbbdyxy-suctbdg completes the activity by him/herself with no assistance from a helper. 5-Set-up or Clean-up Assistance-helper sets up or cleans up; patient completes activity. Mora assists only prior to or following the activity. 4-Supervision or Touching Assistance-helper provides verbal cues and/or touching/steadying and/or contact guard assistance as patient completes activity. Assistance may be provided throughout the activity or intermittently. 3-Partial/Moderate Assistance-helper does LESS THAN HALF the effort. Mora lifts, holds or supports trunk or limbs, but provides less than half the effort. 2-Substantial/Maximal Assistance-helper does MORE THAN HALF the effort. Mora lifts or holds trunk or limbs and provides more than half the effort. 0-Ubogdxmun-xzfnut does ALL the effort. Patient does none of the effort to complete the activity. Or, the assistance of 2 or more helpers is required for the patient to complete the activity. If activity was not attempted, code reason: 7-Patient Refused. 9-Not Applicable-not attempted and the patient did not perform the activity before the current illness, exacerbation or injury. 10-Not Attempted due to Environmental Limitations-(lack of equipment, weather restraints, etc.). 88-Not Attempted due to Medical Conditions or Safety Concerns. Bed Mobility: 6 Transfers (B,C,W/C): 6 Gait: 6 Indoor Mobility (Ambulation): Independent Prior Devices Use: Walker PT Evaluation-Current Subjective Patient agrees to PT. Objective Patient Orientation: Normal For Age Attachments: Chun Catheter ROM/Strength ROM Lower Extremities bilateral LE WFL Strength Lower Extremities 3/5 grossly bilateral LE Integumentary/Posture Bowel Incontinence: No Bladder Incontinence: Chun Cath Posture kyphotic Neuromuscular (Tone, Coordination, Reflexes) grossly intact Sensory Vision: Wears Glasses Hearing: Impaired Transfers Roll Left to Right (QC): 6 Sit to Lying (QC): 6 Lying to Sitting/Side of Bed(Q: 6 Sit to Stand (QC): 4 (SBA) Chair/Fxq-gw-Jvatw Xfer(QC): 4 (SBA) Gait Does the Patient Walk?: Yes Mode of Locomotion: Walk Anticipated Mode of Locomotion: Walk Walk 10 feet (QC): 4 (SBA) Walk 50 ft with 2 Turns(QC): 4 (SBA) Walk 150 ft (QC): 4 (SBA) Distance: 250' Gait Assistive Device: FWW Comments/Gait Description slow, steady with no deviation Balance Sitting Static: Normal Sitting Dynamic: Normal Standing Static: Normal Standing Dynamic: Normal Assessment/Needs 89 y.o. female, will be seen short term by skilled PT to address functional strength and mobility to ensure safe return to home. Rehab Potential: Fair PT Short Term Goals Short Term Goals Time Frame: Mar 08, 2021 Roll Left & Right: 6 Sit to lyin Lying to sitting on side of be: 6 Sit to stand: 6 Chair/sod-or-qoizb transfer: 6 Toilet transfer: 6 Walk 10 feet: 6 Walk 50 feet with two turns: 6 Walk 150 feet: 6 PT Plan Problem List Problem List: Activity Tolerance, Functional Strength Treatment/Plan Treatment Plan: Continue Plan of Care Treatment Plan: Education, Functional Activity Iris, Functional Strength, Gait, Safety, Therapeutic Exercise, Transfers Treatment Duration: Mar 10, 2021 Frequency: 6 times per week Estimated Hrs Per Day: .25 hour per day Patient and/or Family Agrees t: Yes Time/GCodes Time In: 950 Time Out: 1006 Total Billed Treatment Time: 16 Total Billed Treatment 1 visit EVModC 16 min SIDRA VALLADARES PT Mar 03, 2021 10:43
[2021-03-03] MEDS ORDERED: FURO-125 PO (11:29)
[2021-03-03] MEDS ORDERED: CARV3.122 PO (11:29)
[2021-03-03 12:09] VITALS: BP 102/52
--- NOTE | 2021-03-03 14:19 | Occupational Therapy Eval ---
OT Evaluation-General/PLF Medical Diagnosis Admission Date Mar 02, 2021 at 07:29 Medical Diagnosis: acute CHF/UTI/elevated troponin Onset Date: Mar 02, 2021 Therapy Diagnosis Therapy Diagnosis: Decreased ADL status Precautions Precautions/Isolations: Standard Precautions Referral Physician: Olena Referral Reason: Activity Tolerance, Self Care, Evaluation/Treatment, Strengthening/ROM Medical History Pertinent Medical History: CAD, DM, MT Additional Medical History HTN, DMII, CAD, HLD, SSS s/p pacemaker, arthritis, CBP Current History Pt admits with SOB/ LE edema with acute on chronic heart failure, ischemic cardiomyopathy and UTI Reviewed History: Yes Social History Home: Single Level Current Living Status: Spouse ADL-Prior Level of Function SCALE: Activities may be completed with or without assistive devices. 3-Oksdgxnfqd-pbkhmir completes the activity by him/herself with no assistance from a helper. 5-Set-up or Clean-up Assistance-helper sets up or cleans up; patient completes activity. Leopold assists only prior to or following the activity. 4-Supervision or Touching Assistance-helper provides verbal cues and/or touching/steadying and/or contact guard assistance as patient completes activity. Assistance may be provided throughout the activity or intermittently. 3-Partial/Moderate Assistance-helper does LESS THAN HALF the effort. Leopold lifts, holds or supports trunk or limbs, but provides less than half the effort. 2-Substantial/Maximal Assistance-helper does MORE THAN HALF the effort. Leopold lifts or holds trunk or limbs and provides more than half the effort. 5-Xxizmzeqc-lwmaja does ALL the effort. Patient does none of the effort to complete the activity. Or, the assistance of 2 or more helpers is required for the patient to complete the activity. If activity was not attempted, code reason: 7-Patient Refused. 9-Not Applicable-not attempted and the patient did not perform the activity before the current illness, exacerbation or injury. 10-Not Attempted due to Environmental Limitations-(lack of equipment, weather restraints, etc.). 88-Not Attempted due to Medical Conditions or Safety Concerns. ADL PLOF Comments Pt was IND with use of walker in the home, expresses "helps with ." However, pt and receive outside assist 3x per week. CG assists with showering/ dressing/ medication Self Care: Independent Functional Cognition: Independent DME/Equipment: Bath Chair Drive Self: No OT Current Status Subjective Pt AxO, pt in bed/ supine, states just got back to bed and denies OOB. Daughter present. Pt agrees to OT eval. insect control aide comes in to provide increased info on ADL status Mental Status/Objective Patient Orientation: Person, Place, Situation Attachments: Chun Catheter, Oxygen Current Glasses/Contacts: Yes Hearing Aids: No Dentures/Partials: No Hand Dominance: Right Upper Extremity ROM WFL BUE Upper Extremity Coordination WFL BUE Upper Extremity Sensation WFL BUE Upper Extremity Strength WFL BUE ADL-Treatment Eating (QC): 6 (IND per clinical judgment.) Oral Hygiene (QC): 6 (IND per clinical judgment.) Shower/Bathe Self (QC): 3 (min A LB washing per clinical judgment/ per assist with LE) On/Off Footwear (QC): 3 (mod A (nursing staffing coordinator assisted, though pt completes with mod I with jeweler apprentice at home)) Toileting Hygiene (QC): 4 (SBA per clincial judgment/ per nursing staffing coordinator report.) Other Treatments Pt introduced to OT/ OT role. Pt denies OOB. MMT/ ROM with WFL found. Pt expresses no current pain. Pt and nursing staffing coordinator provide current LOF. Pt expresses she does not think she will have difficulties at home upon d/c, as has daughter and CG. However, concerns upon deconditioning. OT to picking machine operator for short term ADL/ conditioning/ UE strengthening to ensure safe d/c home. Pt expresses no BM in 2 days, educated and pt return demo's diaphragmatic breathing with min cues. Pt left in bed with all needs met, call light in reach, nursing staffing coordinator notified of pt's request of suppository. Education OT Patient Education: Correct positioning, Home exercise program, Purpose of tx/functional activities, Safety issues Teaching Recipient: Patient Teaching Methods: Demonstration, Discussion Response to Teaching: Verbalize Understanding, Return Demonstration OT Care Home Goals Care Home Goals Time Frame: Mar 10, 2021 Eating (QC): 6 Oral Hygiene (QC): 6 Toileting Hygiene (QC): 6 Shower/Bathe Self (QC): 6 Upper Body Dressing (QC): 6 Lower Body Dressing (QC): 6 On/Off Footwear (QC): 6 Additional Goals: 1-Demonstrate ADL Tasks, 2-Verbalize Understanding, 3- ImproveStrength/Iris 1=Demonstrate adherence to instructed precautions during ADL tasks. 2=Patient will verbalize/demonstrate understanding of assistive devices/modifications for ADL. 3=Patient will improve strength/tolerance for activity to enable patient to perform ADL's. OT Education/Plan Problem List/Assessment Assessment: Decreased Activ Tolerance, Impaired I ADL's, Impaired Self-Care Skills Discharge Recommendations Plan/Recommendations: Continue POC Therapy Discharge Recommendati: Home & Family, Post Acute OT Treatment Plan/Plan of Care Treatment,Training & Education: Yes Patient would benefit from OT for education, treatment and training to promote independence in ADL's, mobility, safety and/or upper extremity function for ADL's. Plan of Care: ADL Retraining, Caregiver Training, Functional Mobility, UE Funct Exercise/Act Treatment Duration: Mar 10, 2021 Frequency: 5 times per week Estimated Hrs Per Day: .25 hour per day Agreement: Yes Rehab Potential: Fair Time/GCodes Start Time: 13:58 Stop Time: 14:07 Total Time Billed (hr/min): 9 Billed Treatment Time 1CHASE (9) ZANA VILLAFANA OTR Mar 03, 2021 14:19
--- NOTE | 2021-03-03 14:22 | Progress Note - Cardiology ---
Cardiology SOAP Progress Note Subjective: Shortness of breath better but not resolved Gen weakness and malaise persistent No cp or palp or syncope No n/v/d Objective: I&O/Vital Signs 03/03/21 03/03/21 03/03/21 03/03/21 03:42 04:02 07:00 08:00 Temp 35.4 36.1 Pulse 60 68 74 Resp 21 15 B/P (MAP) 111/56 (74) 109/56 (73) Pulse Ox 96 96 O2 Delivery Room Air Nasal Cannula Nasal Cannula O2 Flow Rate 2.00 2.00 03/03/21 03/03/21 03/03/21 03/03/21 08:00 12:00 12:09 12:28 Temp 35.9 Pulse 75 84 Resp 23 B/P (MAP) 102/52 (69) Pulse Ox 98 O2 Delivery Room Air Room Air Nasal Cannula O2 Flow Rate 1.00 03/03/21 00:00 Intake Total 580 ml Output Total 1625 ml Balance -1045 ml Constitutional: AAO x 3, well-developed, well-nourished Respiratory: No accessory muscle use, No respiratory distress; chest expansion is symmetric, chest is bilaterally symmetric, crackles (bi-basilar) Cardiovascular: regular rate-rhythm; No JVD; S1 and S2, systolic murmur Gastrointestional: No tender; soft, round, audible bowel sounds Extremities: no lower extremity edema bilateral Neurologic/Psychiatric: grossly intact (moves all extremities) Skin: other (bruising extending from right groin, thigh, knee, calve, ankle and toes) Results/Procedures: Labs Laboratory Tests 03/02/21 21:02: Glucometer 97 03/03/21 04:10: White Blood Count 6.3, Red Blood Count 2.98L, Hemoglobin 8.7L, Hematocrit 28L, Mean Corpuscular Volume 95, Mean Corpuscular Hemoglobin 29, Mean Corpuscular Hemoglobin Concent 31L, Red Cell Distribution Width 14.4, Platelet Count 219, Mean Platelet Volume 11.7, Immature Granulocyte % (Auto) 1, Neutrophils (%) (Auto) 61, Lymphocytes (%) (Auto) 21, Monocytes (%) (Auto) 11, Eosinophils (%) (Auto) 6, Basophils (%) (Auto) 1, Neutrophils # (Auto) 3.8, Lymphocytes # (Auto) 1.3, Monocytes # (Auto) 0.7, Eosinophils # (Auto) 0.4H, Basophils # (Auto) 0.1, Immature Granulocyte # (Auto) 0.0, Sodium Level 139, Potassium Level 4.4, Chloride Level 104, Carbon Dioxide Level 23, Anion Gap 12, Blood Urea Nitrogen 34H, Creatinine 1.39H, Estimat Glomerular Filtration Rate 36, BUN/Creatinine Ratio 24, Glucose Level 95, Calcium Level 8.8, Magnesium Level 1.7, B-Type Natriuretic Peptide 2578.7H 03/03/21 11:28: Glucometer 96 Laboratory Tests 03/02/21 00:42 03/03/21 04:10 A/P: Assessment: Acute HFrEF - Mildly elevated troponin likely secondary decompensated CHF CAD: - NSTSEMI 02-12-21 - cardiac cath by Dr. Freeman at [facility] at which time she underwent synergy 3.0 x 20 stent placed to the prox-to-mid LAD and synergy 2.5 x 24 mm stent to the [id number] diagonal ICM: - Echocardiogram of 06-15-[address] Yanez showed LVEF 25-30%. Mod to severe aortic stenosis with valve area 0.92 cm2. PASP 35-40mmHg - LVEF 35% at time of cardiac cath at [facility] by Dr. Freeman on 02-13-21 - Echo of 03/02/21: LVEF 20%, anteroseptal akinesis, global hypokinesis, mod to severe with valve area approx 0.8 sq cm, mild to mod MR< PASP 40-45 mmHg SSS documented in note of 02-14-21 from [facility] by Dr. Tobias - PPM implanted 02-19-19 at [facility] ([facility]) - unsure of when last device check was done Aortic stenosis: - severe per echo of 06-15-[address] Yanez - documented to be mild to mod aortic stenosis at time of cardiac cath on 02-13-[address] Freeman at [facility] - mod to severe with valve area approx 0.8 sq cm on echo of 03-02-21 UTI - managment per Medical services Plan: Complex management due to multiple, advanced cardiac morbidities (see above) Treat CHF and optimize therapy for advanced ischemic cardiomyopathy, as tolerated by bp Continue DAPT d/c recent cor stentin Monitor lab closely Replace electrolytes as indicated ADRIANA HANSEN MD FACP FACC CCDS Mar 03, 2021 14:22
[2021-03-03] MEDS ORDERED: CEFD300C3 PO (14:51)
--- NOTE | 2021-03-03 15:14 | Discharge Summary ---
Discharge Summary Reconcile Patient Problems Problems Reviewed?: Yes Instructions for Patient Via Yuliya Finestrella, Assessment/Instructions Take medications as prescribed. Complete your course of antibiotics for UTI. Begin taking Coreg and Lasix for heart failure. Follow-up with your dog license officer supervisor. Follow-up with your primary care physician. Return with worsening shortness of breath or if you feel like you are getting worse. Physician to follow Patient: Torres Discharge Diet for Home: No Restrictions Hospital Course Date of Admission: Mar 02, 2021 at 07:29 Admission Diagnosis : Acute on chronic heart failure with reduced ejection fraction Family Physician/Provider: Nick Macdonald DO Date of Discharge: 03/03/21 Discharge Diagnosis: Acute on chronic heart failure with reduced ejection fraction Hospital Course: Liza Melendrez is an 89-year-old female with past medical history of coronary artery disease with recent coronary artery stenting, ischemic cardiomyopathy with HFrEF, who presented with shortness of breath and was admitted with acute on chronic heart failure with reduced ejection fraction. She was treated with IV diuretics and improved. Cardiology was consulted and assisted with her care. She was started on low-dose Coreg and Lasix. Her course was complicated by a urinary tract infection and she was given a prescription for Omnicef. A home oxygen study was performed but she did not qualify. She should follow-up with her primary care physician. She was discharged home in stable condition. She should continue home health care. Labs and Pending Lab Test: Laboratory Tests 03/02/21 21:02: Glucometer 97 03/03/21 04:10: White Blood Count 6.3, Red Blood Count 2.98L, Hemoglobin 8.7L, Hematocrit 28L, Mean Corpuscular Volume 95, Mean Corpuscular Hemoglobin 29, Mean Corpuscular Hemoglobin Concent 31L, Red Cell Distribution Width 14.4, Platelet Count 219, Mean Platelet Volume 11.7, Immature Granulocyte % (Auto) 1, Neutrophils (%) (Auto) 61, Lymphocytes (%) (Auto) 21, Monocytes (%) (Auto) 11, Eosinophils (%) (Auto) 6, Basophils (%) (Auto) 1, Neutrophils # (Auto) 3.8, Lymphocytes # (Auto) 1.3, Monocytes # (Auto) 0.7, Eosinophils # (Auto) 0.4H, Basophils # (Auto) 0.1, Immature Granulocyte # (Auto) 0.0, Sodium Level 139, Potassium Level 4.4, Chloride Level 104, Carbon Dioxide Level 23, Anion Gap 12, Blood Urea Nitrogen 34H, Creatinine 1.39H, Estimat Glomerular Filtration Rate 36, BUN/Creatinine Ratio 24, Glucose Level 95, Calcium Level 8.8, Magnesium Level 1.7, B-Type Natriuretic Peptide 2578.7H 03/03/21 11:28: Glucometer 96 Home Meds Active Cefdinir 300 Mg Capsule 300 Mg PO BID 7 Days Lasix (Furosemide) 20 Mg Tablet 20 Mg PO DAILY 30 Days Carvedilol 3.125 Mg Tablet 3.125 Mg PO BID 30 Days Reported Aspirin EC (Aspirin) 81 Mg Tablet.dr 81 Mg PO HS Tylenol Extra Strength (Acetaminophen) 500 Mg Tablet 500-1,000 Mg PO Q8H PRN Cetirizine HCl 10 Mg Tablet 10 Mg PO DAILY Vitamin D3 (Cholecalciferol (Vitamin D3)) 25 Mcg Capsule 25 Mcg PO DAILY Multivitamin 1 Each Tablet 1 Each PO DAILY Cranberry Concentrate Softgel (Cranberry Conc/Ascorbic Acid) 1 Each Capsule 1 Each PO DAILY Sertraline HCl 25 Mg Tablet 25 Mg PO BID Metformin HCl 500 Mg Tablet 1,000 Mg PO BID TAKES 2 (500MG) TABS Clopidogrel (Clopidogrel Bisulfate) 75 Mg Tablet 75 Mg PO DAILY Atorvastatin Calcium 40 Mg Tablet 40 Mg PO HS Consulations Cardiology Patient Allergies: Coded Allergies: Sulfa (Sulfonamide Antibiotics) (Verified Allergy, Unknown, 04/24/09) amoxicillin (Verified Allergy, Unknown, 04/23/09) Uncoded Allergies: TRIMOX (Allergy, Mild, 03/31/09) ENVIRONMENTAL (Allergy, Unknown, 06/15/20) nasal drainage Home Health Need/Face to Face Date of Face to Face: Mar 03, 2021 Clinical Findings: Generalized weakness and fatigue, Muscle weakness, Shortness of breath I have seen Pt [id number]: Yes Discharged To: Home Diagnosis/Conditions: Heart failure CAD Debility Problems/Diagnosis/Condition: (1) Debility (2) Acute on chronic HFrEF (heart failure with reduced ejection fraction) (3) CAD (coronary artery disease) Patient is Homebound due to: Marta fall risk due to instabilty, Muscle weakness, Shortness of breath/distress Homebound Status Due to the above stated illness, injury or surgical procedure (medical condition or diagnosis) and associated clinical findings, the patient is homebound because of his/her inability to leave home except with aid of a supportive device and/or person AND leaving the home requires a considerable and taxing effort or is medically contraindicated. Pt req the following assistanc: Aid of another person, Walker Home Health Nursing Orders Home Health Services Order: Nursing Services, Drying Machine Receiver-Evaluate & Treat, Physical Therapy-Evaluate & Treat Home Health Infusion Therapy Line Start Date: Mar 02, 2021 Therapy Orders Therapy Orders: OT (must have SN or PT order), Physical Therapy Therapy Specific Orders: Eval assistive deivces, Teach enviro modifications/safety, Gait training, Increase strength/endurance Certify Stmt I certify that this patient is under my care and that I, a nurse practitioner or a physician; a customer care assistant working with me, had a face to face encounter that - meets the physician face to face encounter requirements with this patient as dated. Discharge Physical Exam General: Alert, Oriented X3, Cooperative, No Acute Distress HEENT: Atraumatic, EOMI, Mucous Memb Moist/[place] Lungs: Other (decreased breath sounds, no respiratory distress) Heart: Regular Rate, Normal S1, Normal S2, No Murmurs Abdomen: Normal Bowel Sounds, Soft, No Tenderness Extremities: Other (1+ pedal edema) Skin: No Rashes, No Significant Lesion Neuro: Normal Speech, Normal Tone Psych/Mental Status: Mental Status NL, Mood NL KALPANA PRO MD Mar 03, 2021 15:14
[2021-03-03] MEDS ORDERED: SERTRALINE 50 MG (ZOLOFT) TABLET PO SCH (21:00)
[2021-03-03] MEDS ORDERED: ENALAPRIL 2.5 MG (VASOTEC) TAB PO SCH (21:00)
[2021-03-03] MEDS ORDERED: ENOXAPARIN 30 MG/0.3 ML (LOVENOX) SYR SC SCH (21:00)
== END 2021-03-03 16:20 | disposition home health service (06) | DRG 292 ==
LOC: EDUNIT# → ER 00:04 → CSD 07:29
PROVIDERS: ADMIT Internal Medicine; ATTEND Internal Medicine
DX: I11.0 Hypertensive heart disease with heart failure (principal); N39.0 Urinary tract infection, site not specified; I50.23 Acute on chronic systolic (congestive) heart failure; E78.00 Pure hypercholesterolemia, unspecified; M19.90 Unspecified osteoarthritis, unspecified site; G89.29 Other chronic pain; M54.9 Dorsalgia, unspecified; E11.9 Type 2 diabetes mellitus without complications; Z20.822 Contact with and (suspected) exposure to COVID-19; F41.9 Anxiety disorder, unspecified; I25.5 Ischemic cardiomyopathy; I25.10 Atherosclerotic heart disease of native coronary artery without angina pectoris; I35.0 Nonrheumatic aortic (valve) stenosis; I25.2 Old myocardial infarction; Z79.82 Long term (current) use of aspirin; Z79.899 Other long term (current) drug therapy; Z95.0 Presence of cardiac pacemaker; Z95.5 Presence of coronary angioplasty implant and graft; Z79.84 Long term (current) use of oral hypoglycemic drugs
CPT/HCPCS: 36415; 71045; 80048; 80053; 81000; 82150; 82550; 82553; 82947; 83615; 83690; 83735; 83874; 83880; 84145; 84484; 85007; 85025; 85027; 85652; 86141; 87077; 87088; 87186; 87636; 93005; 93041; 93306; 94761

== ENCOUNTER 2021-04-20 19:36 | Inpatient (IN) | payer MEDICARE ==
[~2021-04-20] VITALS: Ht 149 cm; Wt 53.7 kg
[~2021-04-20 19:36] MED LIST changes: +ACET-2267 PO; +ASPI-1238 PO; +ATOR40TA70 PO; +CARV3.122 PO; +CEFD300C3 PO; +CHOL100048 PO; +CLOP75TA28 PO; +CRAN1CAP9 PO; +FURO-125 PO; +METF-397 PO; +MULT-1136 PO; +SERT-412 PO
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
[2021-04-20 20:39] LABS: BASOPHILS # (AUTO) 0.1 10^3/uL (0.0-0.1); BASOPHILS % (AUTO) 1 % (0-10); EOSINOPHILS # (AUTO) 0.4 10^3/uL (0.0-0.3); EOSINOPHILS % (AUTO) 4 % (0-10); HEMATOCRIT 25 % (35-52); LYMPHOCYTES # (AUTO) 0.8 10^3/uL (1.0-4.0); LYMPHOCYTES % (AUTO) 9 % (12-44); MEAN CORPUSCULAR HEMOGLOBIN 29 pg (25-34); MEAN CORPUSCULAR HGB CONC 32 g/dL (32-36); MEAN CORPUSCULAR VOLUME 91 fL (80-99); MEAN PLATELET VOLUME 11.5 fL (9.0-12.2); MONOCYTES # (AUTO) 0.9 10^3/uL (0.0-1.0); MONOCYTES % (AUTO) 9 % (0-12); NEUTROPHILS % (AUTO) 76 % (42-75); PLATELET COUNT 233 10^3/uL (130-400); WHITE BLOOD COUNT 9.2 10^3/uL (4.3-11.0)
[2021-04-20 20:49] LABS: INR 1.1 (0.8-1.4); PROTHROMBIN TIME PATIENT 15.1 SEC (12.2-14.7)
[2021-04-20 20:54] LABS: ALBUMIN 3.8 GM/DL (3.2-4.5); BILIRUBIN,TOTAL 0.6 MG/DL (0.1-1.0); CALCIUM 9.1 MG/DL (8.5-10.1); CREATININE SERUM 1.38 MG/DL (0.60-1.30); MAGNESIUM 1.3 MG/DL (1.6-2.4); POTASSIUM 4.4 MMOL/L (3.6-5.0); TOTAL PROTEIN 6.9 GM/DL (6.4-8.2)
[2021-04-20] MEDS ORDERED: FUROSEMIDE 40 MG/4 ML INJ (LASIX) IVP ONE (21:30)
--- NOTE | 2021-04-20 21:54 | Diagnostic Imaging Report ---
INDICATION: Chest pain. EXAMINATION: Frontal chest was obtained at 9:41 p.m. COMPARISON: 03/02/2021. FINDINGS: There is prominent cardiomegaly. Pacemaker is unchanged. There is mild central vascular prominence without rigo edema. There are chronic appearing increased interstitial markings. There is a small amount of pleural fluid in the right costophrenic angle. IMPRESSION: Prominent cardiomegaly with central vascular congestion. There is improved central vascular congestion compared to the prior study. There is a small right pleural effusion. There is no new consolidation. Dictated by: Dictated on workstation # [id number]
[2021-04-20 23:46] VITALS: BP 117/65
[2021-04-20 23:47] VITALS: BP 103/65
[2021-04-21] MEDS ORDERED: RT-ALBUTEROL/IPRATROPIUM 3 ML (DUONEB) VIAL INH PRN
[2021-04-21 03:54] LABS: TRIGLYCERIDES 84 MG/DL (<150); VLDL CHOLESTEROL 17 MG/DL (5-40)
[2021-04-21 03:57] VITALS: BP 109/63
[2021-04-21 03:58] LABS: CHOLESTEROL 116 MG/DL (< 200)
[2021-04-21 03:59] LABS: HDL CHOLESTEROL 39 MG/DL (40-60)
[2021-04-21 08:00] VITALS: BP 113/68
[2021-04-21] MEDS ORDERED: FUROSEMIDE 40 MG/4 ML INJ (LASIX) IVP ONE (08:00)
--- NOTE | 2021-04-21 09:30 | Consultation-Cardiology ---
HPI-Cardiology Cardiology Consultation: Date of Consultation 04/21/2021 Date of Admission 04/20/2021 Attending Physician Alfonzo Baptiste MD Admitting Physician Nick Macdonald DO Consulting Physician YESSICA WHITTEN JR, MD HPI: Time Seen by a Provider: 09:25 Chief Complaint: Reason for consultation: Acute on chronic congestive heart failure with reduced ejection fraction. Had the pleasure of seeing Liza in the cardiac stepdown unit this morning. She has a history of chronic systolic heart failure, coronary artery disease with previous stents, severe cardiomyopathy, aortic stenosis, Hyperlipidemia, type 2 diabetes mellitus, and stage III chronic kidney disease among other less significant issues. Yesterday she presented to the hospital due to increasing dyspnea. She was found to have pulmonary edema on her chest x-ray as well as an elevated troponin and BNP level. She was admitted for further treatment. She has received 2 doses of intravenous furosemide. Over the past week she has fallen a couple of times. She states she lost her balance. She denies syncope. On one occasion she hurt her knee. Earlier in the week she saw her primary care provider who told her to change her Lasix from every other day over to once a day. However, over the past few days she has had increasing shortness of breath. Yesterday she asked one of her friends to bring her to the hospital. She denies chest discomfort. She denies paroxysmal nocturnal dyspnea, orthopnea, or palpitations. She did have some swelling of her feet but this has improved. She lives with her and Aromas. He is partially disabled due to a previous stroke. Certain portions of this document may have been dictated utilizing voice recognition technology. Inherent to this technology, typographical and grammatical errors may exist. As much as I am diligent to identify and correct these mistakes, some errors may remain in the document. Review of Systems-Cardiology Review of Systems Other comments Review of 10 organ systems is as per the history of present illness, otherwise negative. YXH-Cjemrn-Tejnaq Hx Patient Social History Smoking Status: Former Smoker 2nd Hand Smoke Exposure: No Have you traveled recently?: No Alcohol Use?: No Pt feels they are or have been: No Immunizations Up To Date Tetanus Booster (TDap): More than 5yrs Past Medical History PMH As described under Assessment. Family Medical History Family Medical History: Reports father had CAD Allergies and Home Medications Allergies Coded Allergies: Sulfa (Sulfonamide Antibiotics) (Verified Allergy, Unknown, 04/24/09) amoxicillin (Verified Allergy, Unknown, 04/23/09) Uncoded Allergies: TRIMOX (Allergy, Mild, 03/31/09) ENVIRONMENTAL (Allergy, Unknown, 06/15/20) nasal drainage Home Medications Acetaminophen 500 Mg Tablet, 500-1,000 MG PO Q8H PRN for PAIN-MILD (1-4), (Reported) Aspirin 81 Mg Tablet.dr, 81 MG PO HS, (Reported) Atorvastatin Calcium 40 Mg Tablet, 40 MG PO HS, (Reported) Carvedilol 3.125 Mg Tablet, 3.125 MG PO BID Prescribed by: KALPANA PRO on 03/03/21 1129 Cefdinir 300 Mg Capsule, 300 MG PO BID Prescribed by: KALPANA PRO on 03/03/21 1451 Cetirizine HCl 10 Mg Tablet, 10 MG PO DAILY, (Reported) Cholecalciferol (Vitamin D3) 25 Mcg Capsule, 25 MCG PO DAILY, (Reported) Clopidogrel Bisulfate 75 Mg Tablet, 75 MG PO DAILY, (Reported) Cranberry Conc/Ascorbic Acid 1 Each Capsule, 1 EACH PO DAILY, (Reported) Furosemide 20 Mg Tablet, 20 MG PO DAILY Prescribed by: KALPANA PRO on 03/03/21 1129 Metformin HCl 500 Mg Tablet, 1,000 MG PO BID, (Reported) TAKES 2 (500MG) TABS Multivitamin 1 Each Tablet, 1 EACH PO DAILY, (Reported) Sertraline HCl 25 Mg Tablet, 25 MG PO BID, (Reported) Patient Home Medication List Home Medication List Reviewed: Yes Exam Vital Signs Vital Signs Date Time Temp Pulse Resp B/P (MAP) Pulse Ox O2 Delivery O2 Flow Rate FiO2 04/21/21 08:14 98 Nasal Cannula 1.00 04/21/21 08:00 36.4 95 24 113/68 (83) 04/20/21 23:46 21 Physical Exam General: Alert. No acute distress. Well nourished and appears stated age. Eye: Extraocular movements are intact. Conjunctivae are clear. There are no xanthelasma. HENT: Normocephalic. Atraumatic. Carotid pulsations 2/2 without bruits. Neck: Jugular venous pressure does not appear elevated. No thyromegaly appreciated. Respiratory: Lungs are clear to auscultation. Respirations are non-labored. Breath sounds are equal. Symmetrical chest wall expansion. Cardiovascular: Normal rate. Regular rhythm. 3/6 systolic ejection murmur. No gallop. Point of maximal impulse is not appear displaced. Good pulses equal in all extremities. No edema. Gastrointestinal: Soft. Normal bowel sounds. Skin: Skin turgor is normal. There is no pallor. Musculoskeletal: No kyphosis or scoliosis appreciated. Neurologic: Alert and oriented to person, place, time. Cranial nerves 3-12 appear grossly intact. The patient has good motor tone strength in the upper and lower extremities bilaterally. Psychiatric: Cooperative. Appropriate mood & affect. Labs Laboratory Tests Test 04/20/21 20:11 04/20/21 20:36 04/21/21 03:15 Range/Units White Blood Count 9.2 4.3-11.0 10^3/uL Red Blood Count 2.73 L 3.80-5.11 10^6/uL Hemoglobin 8.0 L 11.5-16.0 g/dL Hematocrit 25 L 35-52 % Mean Corpuscular Volume 91 80-99 fL Mean Corpuscular Hemoglobin 29 25-34 pg Mean Corpuscular Hemoglobin Concent 32 32-36 g/dL Red Cell Distribution Width 13.9 10.0-14.5 % Platelet Count 233 130-400 10^3/uL Mean Platelet Volume 11.5 9.0-12.2 fL Immature Granulocyte % (Auto) 0 % Neutrophils (%) (Auto) 76 H 42-75 % Lymphocytes (%) (Auto) 9 L 12-44 % Monocytes (%) (Auto) 9 0-12 % Eosinophils (%) (Auto) 4 0-10 % Basophils (%) (Auto) 1 0-10 % Neutrophils # (Auto) 7.0 1.8-7.8 10^3/uL Lymphocytes # (Auto) 0.8 L 1.0-4.0 10^3/uL Monocytes # (Auto) 0.9 0.0-1.0 10^3/uL Eosinophils # (Auto) 0.4 H 0.0-0.3 10^3/uL Basophils # (Auto) 0.1 0.0-0.1 10^3/uL Immature Granulocyte # (Auto) 0.0 0.0-0.1 10^3/uL Prothrombin Time 15.1 H 12.2-14.7 SEC INR Comment 1.1 0.8-1.4 Activated Partial Thromboplast Time 38 H 24-35 SEC Sodium Level 132 L 135-145 MMOL/L Potassium Level 4.4 3.6-5.0 MMOL/L Chloride Level 100 98-107 MMOL/L Carbon Dioxide Level 19 L 21-32 MMOL/L Anion Gap 13 5-14 MMOL/L Blood Urea Nitrogen 36 H 7-18 MG/DL Creatinine 1.38 H 0.60-1.30 MG/DL Estimat Glomerular Filtration Rate 36 BUN/Creatinine Ratio 26 Glucose Level 143 H 70-105 MG/DL Calcium Level 9.1 8.5-10.1 MG/DL Corrected Calcium 9.3 8.5-10.1 MG/DL Magnesium Level 1.3 L 1.6-2.4 MG/DL Total Bilirubin 0.6 0.1-1.0 MG/DL Aspartate Amino Transf (AST/SGOT) 39 H 5-34 U/L Alanine Aminotransferase (ALT/SGPT) 51 0-55 U/L Alkaline Phosphatase 128 40-136 U/L Myoglobin 310.0 H 10.0-92.0 NG/ML Troponin I 0.066 H <0.028 NG/ML B-Type Natriuretic Peptide 3572.4 H <100.0 PG/ML Total Protein 6.9 6.4-8.2 GM/DL Albumin 3.8 3.2-4.5 GM/DL Influenza Type A (RT-PCR) Not Detected Not Detecte Influenza Type B (RT-PCR) Not Detected Not Detecte SARS-CoV-2 RNA (RT-PCR) Not Detected Not Detecte Triglycerides Level 84 <150 MG/DL Cholesterol Level 116 < 200 MG/DL LDL Cholesterol Direct 52 1-129 MG/DL VLDL Cholesterol 17 5-40 MG/DL HDL Cholesterol 39 L 40-60 MG/DL Radiology ECHOCARDIOGRAM (03/02/2021): 1. Normal left ventricular chamber size with mild concentric left ventricular hypertrophy. Severe left ventricular systolic dysfunction with an estimated ejection fraction of 20-25%. 2. The left atrium is moderately dilated. 3. There is mild to moderate mitral regurgitation. 4. There is moderate to severe aortic stenosis. 5. There is mild to moderate tricuspid regurgitation. 6. The estimated pulmonary arteries systolic pressure is 40-45 mmHg. ECG Impression ECG Initial ECG Intervals Electrocardiogram from 04/20/2021 shows sinus rhythm with left atrial abnormality with AV sequential pacemaker with atrial sensing and ventricular sensing and pacing. Diagnosis/Problems Diagnosis/Problems (1) Acute on chronic HFrEF (heart failure with reduced ejection fraction) Status: Acute Assessment & Plan: She appears to have worsening heart failure. She has received two doses of intravenous furosemide. I will resume her carvedilol. She was not on any other guideline directed medical therapy, presumably due to low blood pressures and stage III chronic kidney disease. I recommend a follow-up chest x-ray in the morning and if she is doing better tomorrow, she can probably be discharged home at that time. 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 (2) Cardiomyopathy Assessment & Plan: She has severe left ventricular systolic dysfunction as noted on her echocardiogram in February. As above, I will resume the carvedilol. She does not appear to be a good candidate for the other guideline directed medical therapy due to chronically low blood pressures and stage III chronic kidney disease as outlined above. Given her advanced age and chronic debility, I am not sure she is a good candidate for prophylactic defibrillator. (3) Coronary artery disease without angina pectoris Assessment & Plan: She apparently had a recent coronary stent. Exact details unknown. I will restart her aspirin, clopidogrel, and statin medication. I have also resumed her beta-maureen as above. She does not seem to be having any angina at this point time. Her troponin elevation is a probable type II non-ST elevation myocardial infarction caused by the acute on chronic heart failure. (4) Aortic stenosis Status: Chronic Assessment & Plan: She had moderate to severe aortic stenosis noted on her echocardiogram from February,. This may be contributing to her heart failure. This will need to be followed by her regular deputy sheriff in [place]. There are no indications for intervention at this time. (5) SSS (sick sinus syndrome) Status: Chronic Assessment & Plan: She has a permanent pacemaker in place that appears to be functioning normally. (6) Acute kidney injury superimposed on chronic kidney disease Assessment & Plan: We will need to watch her renal function closely with the intravenous diuretic. (7) Mixed hyperlipidemia Assessment & Plan: I have resumed her atorvastatin. (8) Pulmonary hypertension Assessment & Plan: This is most likely related to her chronic heart failure and possibly mitral regurgitation. YESSICA WHITTEN JR, MD Apr 21, 2021 09:30
[2021-04-21] MEDS ORDERED: CLOPIDOGREL 75 MG (PLAVIX) TABLET PO ONE (09:45)
[2021-04-21] MEDS ORDERED: ASPIRIN E.C. 81 MG (ECOTRIN) TAB PO ONE (09:45)
[2021-04-21] MEDS ORDERED: FURO20TA4 PO (10:23)
[2021-04-21] MEDS ORDERED: CARV3.122 PO (10:23)
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
[2021-04-21 12:15] VITALS: BP 98/60
[2021-04-21 16:00] VITALS: BP 107/55
[2021-04-21] MEDS ORDERED: ACETAMINOPHEN 500 MG TAB (TYLENOL) PO PRN (19:00)
[2021-04-21 20:00] VITALS: BP 106/63
[2021-04-21] MEDS ORDERED: NON-FORMULARY MEDICATION 1 EA EA (Sertraline HCl 25 MG) PO SCH (21:00)
[2021-04-21] MEDS: SERTRALINE 50 MG (ZOLOFT) TABLET PO SCH (21:36)
[2021-04-22 03:19] LABS: BASOPHILS # (AUTO) 0.1 10^3/uL (0.0-0.1); BASOPHILS % (AUTO) 1 % (0-10); EOSINOPHILS # (AUTO) 0.3 10^3/uL (0.0-0.3); EOSINOPHILS % (AUTO) 4 % (0-10); HEMATOCRIT 27 % (35-52); HEMOGLOBIN 8.2 g/dL (11.5-16.0); LYMPHOCYTES # (AUTO) 0.7 10^3/uL (1.0-4.0); LYMPHOCYTES % (AUTO) 8 % (12-44); MEAN CORPUSCULAR HEMOGLOBIN 28 pg (25-34); MEAN CORPUSCULAR HGB CONC 30 g/dL (32-36); MEAN CORPUSCULAR VOLUME 93 fL (80-99); MEAN PLATELET VOLUME 11.5 fL (9.0-12.2); MONOCYTES % (AUTO) 12 % (0-12); NEUTROPHILS # (AUTO) 6.5 10^3/uL (1.8-7.8); NEUTROPHILS % (AUTO) 76 % (42-75); PLATELET COUNT 201 10^3/uL (130-400); WHITE BLOOD COUNT 8.6 10^3/uL (4.3-11.0)
[2021-04-22 03:39] LABS: CREATININE SERUM 1.35 MG/DL (0.60-1.30); POTASSIUM 3.2 MMOL/L (3.6-5.0)
[2021-04-22 04:00] VITALS: BP 102/53
[2021-04-22 07:53] VITALS: BP_SYST 111; BP_SYST 136; BP_DIAS 55; BP_DIAS 69
--- NOTE | 2021-04-22 08:53 | Diagnostic Imaging Report ---
EXAMINATION: Chest 2 view HISTORY: Heart failure COMPARISON: 04/20/2021 FINDINGS: Heart size and pulmonary vasculature are stable with surgical changes from left-sided cardiac device placement. Stable blunting of the costophrenic angles. Minimal bibasilar opacities. No pleural effusion or pneumothorax. Calcifications of the aorta. The osseous structures are intact. IMPRESSION: 1. Stable bilateral pleural thickening or trace pleural fluid with minimal bibasilar atelectasis or consolidation. Dictated by: Dictated on workstation # [id number]
[2021-04-22] MEDS ORDERED: LORATADINE (CLARITIN) 10 MG TAB PO SCH (09:00)
[2021-04-22] MEDS ORDERED: ASPIRIN E.C. 81 MG (ECOTRIN) TAB PO SCH (09:00)
[2021-04-22] MEDS ORDERED: CLOPIDOGREL 75 MG (PLAVIX) TABLET PO SCH (09:00)
[2021-04-22] MEDS ORDERED: NON-FORMULARY MEDICATION 1 EA EA (Cetirizine HCl 10 MG) PO SCH (09:00)
[2021-04-22] MEDS: SERTRALINE 50 MG (ZOLOFT) TABLET PO SCH (09:01)
--- NOTE | 2021-04-22 09:33 | Cardiology Progress Note ---
Progress Note-Cardiology Events since last exam Date Seen by Provider: Apr 22, 2021 Time Seen by Provider: 09:28 Events since last exam We are seeing her due to heart failure. She normally follows with Dr. Freeman at [facility] for her cardiac care. She feels much better this morning. She would like to go home. Her breathing is improved. She denies chest pain, palpitations, syncope, or ankle edema. Certain portions of this document may have been dictated utilizing voice recognition technology. Inherent to this technology, typographical and grammatical errors may exist. As much as I am diligent to identify and correct these mistakes, some errors may remain in the document. Vitals Last set of Vitals Signs Vital Signs 04/20/21 04/22/21 04/22/21 04/22/21 23:46 07:53 08:06 08:25 Temp 37.0 Pulse 95 Resp 16 B/P (MAP) 111/55 (73) Pulse Ox 97 86 O2 Delivery Nasal Cannula O2 Flow Rate 3.00 FiO2 21 Labs Labs Laboratory Tests 04/22/21 02:57 Exam Vital Signs Vital Signs Date Time Temp Pulse Resp B/P (MAP) Pulse Ox O2 Delivery O2 Flow Rate FiO2 04/22/21 08:25 95 97 3.00 86 04/22/21 08:06 Nasal Cannula 04/22/21 07:53 37.0 16 111/55 (73) 04/20/21 23:46 21 Physical Exam General: Alert. No acute distress. Eye: No xanthelasma. HENT: Normocephalic. Neck: Jugular venous pressure does not appear elevated. Respiratory: Lungs are clear to auscultation but with decreased breath sounds at the bases bilaterally. Respirations are non-labored. Breath sounds are equal. Symmetrical chest wall expansion. Cardiovascular: Normal rate. Regular rhythm. 3/6 systolic ejection murmur. No gallop. No edema. Gastrointestinal: Soft. Normal bowel sounds. Skin: Warm. Dry. Neurologic: Alert and oriented to person, place, time. Cranial nerves 3-11 grossly intact. Psychiatric: Cooperative. Appropriate mood & affect. Labs Laboratory Tests Test 04/21/21 15:30 04/21/21 20:17 04/22/21 02:57 Range/Units Glucometer 186 H 196 H 70-110 MG/DL White Blood Count 8.6 4.3-11.0 10^3/uL Red Blood Count 2.91 L 3.80-5.11 10^6/uL Hemoglobin 8.2 L 11.5-16.0 g/dL Hematocrit 27 L 35-52 % Mean Corpuscular Volume 93 80-99 fL Mean Corpuscular Hemoglobin 28 25-34 pg Mean Corpuscular Hemoglobin Concent 30 L 32-36 g/dL Red Cell Distribution Width 13.9 10.0-14.5 % Platelet Count 201 130-400 10^3/uL Mean Platelet Volume 11.5 9.0-12.2 fL Immature Granulocyte % (Auto) 1 % Neutrophils (%) (Auto) 76 H 42-75 % Lymphocytes (%) (Auto) 8 L 12-44 % Monocytes (%) (Auto) 12 0-12 % Eosinophils (%) (Auto) 4 0-10 % Basophils (%) (Auto) 1 0-10 % Neutrophils # (Auto) 6.5 1.8-7.8 10^3/uL Lymphocytes # (Auto) 0.7 L 1.0-4.0 10^3/uL Monocytes # (Auto) 1.0 0.0-1.0 10^3/uL Eosinophils # (Auto) 0.3 0.0-0.3 10^3/uL Basophils # (Auto) 0.1 0.0-0.1 10^3/uL Immature Granulocyte # (Auto) 0.0 0.0-0.1 10^3/uL Sodium Level 135 135-145 MMOL/L Potassium Level 3.2 L 3.6-5.0 MMOL/L Chloride Level 99 98-107 MMOL/L Carbon Dioxide Level 24 21-32 MMOL/L Anion Gap 12 5-14 MMOL/L Blood Urea Nitrogen 35 H 7-18 MG/DL Creatinine 1.35 H 0.60-1.30 MG/DL Estimat Glomerular Filtration Rate 37 BUN/Creatinine Ratio 26 Glucose Level 158 H 70-105 MG/DL Calcium Level 9.0 8.5-10.1 MG/DL Diagnosis/Problems Diagnosis/Problems (1) Acute on chronic HFrEF (heart failure with reduced ejection fraction) Status: Acute Assessment & Plan: She has improved after IV furosemide. I resumed her carvedilol. She was not on any other guideline directed medical therapy, presumably due to low blood pressures and stage III chronic kidney disease. She will need to follow-up with her regular coil winding supervisor in [place] after discharge. I asked her to follow-up with either her coil winding supervisor, Dr. Freeman, or her primary provider sometime next week. (2) Cardiomyopathy Assessment & Plan: She has severe left ventricular systolic dysfunction as no arnold on her echocardiogram in February. I resumed her carvedilol. She does not appear to be a good candidate for the other guideline directed medical therapy due to chronically low blood pressures and stage III chronic kidney disease as outlined above. Given her advanced age and chronic debility, I am not sure she is a good candidate for prophylactic defibrillator. (3) Coronary artery disease without angina pectoris Assessment & Plan: She apparently had a recent coronary stent. Exact details unknown.I restarted her aspirin, clopidogrel, beta-maureen and statin medication. She does not seem to be having any angina at this point time. Her troponin elevation is a probable type II non-ST elevation myocardial infarction caused by the acute on chronic heart failure. (4) Aortic stenosis Status: Chronic Assessment & Plan: She had moderate to severe aortic stenosis noted on her echocardiogram from February,. This may be contributing to her heart failure. This will need to be followed by her regular coil winding supervisor in [place]. There are no indications for intervention at this time. (5) SSS (sick sinus syndrome) Status: Chronic Assessment & Plan: She has a permanent pacemaker in place that appears to be functioning normally. (6) Acute kidney injury superimposed on chronic kidney disease Assessment & Plan: Her creatinine level from this morning is unchanged from admission despite the intravenous furosemide. (7) Mixed hyperlipidemia Assessment & Plan: Continue atorvastatin. (8) Pulmonary hypertension Assessment & Plan: This is most likely related to her chronic heart failure and possibly the mitral regurgitation. YESSICA WHITTEN JR, MD Apr 22, 2021 09:33
--- NOTE | 2021-04-22 09:35 | D/C HH Face to Face Order ---
D/C Face to Face Orders Instructions for Patient Via [facility], Patient Instructions/FollowUp: Please continue to take your medications as written. Please follow up with Dr Macdonald and Dr Freeman in the next week to follow up this hospital stay. If after being home you feel you would benefit from inpatient rehab please call [phone] and ask for Gabriella. Physician to follow Patient: Dr Macdonald Discharge Diet for Home: No Restrictions Patient Data-Allergies,Ht & Wt Patient Allergies: Coded Allergies: Sulfa (Sulfonamide Antibiotics) (Verified Allergy, Unknown, 04/24/09) amoxicillin (Verified Allergy, Unknown, 04/23/09) Uncoded Allergies: TRIMOX (Allergy, Mild, 03/31/09) ENVIRONMENTAL (Allergy, Unknown, 06/15/20) nasal drainage Home Health Need/Face to Face Date of Face to Face: Apr 22, 2021 Clinical Findings: Generalized weakness and fatigue I have seen Pt [id number]: Yes Discharged To: Home Diagnosis/Conditions: Heart failure, generalized weakness Patient is Homebound due to: Muscle weakness, Shortness of breath/distress Homebound Status Due to the above stated illness, injury or surgical procedure (medical condition or diagnosis) and associated clinical findings, the patient is homebound because of his/her inability to leave home except with aid of a supportive device and/or person AND leaving the home requires a considerable and taxing effort or is medically contraindicated. Pt req the following assistanc: Aid of another person, Walker Home Health Nursing Orders Home Health Services Order: Nursing Services, Powdered Metal Supervisor-Evaluate & Treat, Physical Therapy-Evaluate & Treat Home Health Infusion Therapy Line Start Date: Apr 20, 2021 Therapy Orders Therapy Orders: OT (must have SN or PT order), Physical Therapy Therapy Specific Orders: Eval assistive deivces, Teach enviro modifications/safety, Gait training Certify Stmt I certify that this patient is under my care and that I, a nurse practitioner or a physician; a assistant manager/embalmer working with me, had a face to face encounter that - meets the physician face to face encounter requirements with this patient as dated. PHIL MARTINEZ MD Apr 22, 2021 09:35
--- NOTE | 2021-04-22 09:36 | Discharge Summary ---
Diagnosis/Chief Complaint Date of Admission Apr 20, 2021 at 22:34 Date of Discharge Discharge Date: Apr 22, 2021 Admission Diagnosis Acutely decompensated heart failure Primary Care Nick Macdonald DO Discharge Diagnosis (1) Acute on chronic HFrEF (heart failure with reduced ejection fraction) Status: Acute Assessment & Plan: She has improved after IV furosemide. I resumed her carvedilol. She was not on any other guideline directed medical therapy, presumably due to low blood pressures and stage III chronic kidney disease. She will need to follow-up with her regular quality head in [place] after discharge. I asked her to follow-up with either her quality head, Dr. Freeman, or her primary provider sometime next week. (2) Cardiomyopathy Assessment & Plan: She has severe left ventricular systolic dysfunction as noted on her echocardiogram in February. I resumed her carvedilol. She does not appear to be a good candidate for the other guideline directed medical therapy due to chronically low blood pressures and stage III chronic kidney disease as outlined above. Given her advanced age and chronic debility, I am not sure she is a good candidate for prophylactic defibrillator. (3) Coronary artery disease without angina pectoris Assessment & Plan: She apparently had a recent coronary stent. Exact details unknown.I restarted her aspirin, clopidogrel, beta-maureen and statin medication. She does not seem to be having any angina at this point time. Her troponin elevation is a probable type II non-ST elevation myocardial infarction caused by the acute on chronic heart failure. (4) Aortic stenosis Status: Chronic Assessment & Plan: She had moderate to severe aortic stenosis noted on her echocardiogram from February,. This may be contributing to her heart failure. This will need to be followed by her regular quality head in [place]. There are no indications for intervention at this time. (5) SSS (sick sinus syndrome) Status: Chronic Assessment & Plan: She has a permanent pacemaker in place that appears to be functioning normally. (6) Acute kidney injury superimposed on chronic kidney disease Assessment & Plan: Her creatinine level from this morning is unchanged from admission despite the intravenous furosemide. (7) Mixed hyperlipidemia Assessment & Plan: Continue atorvastatin. (8) Pulmonary hypertension Assessment & Plan: This is most likely related to her chronic heart failure and possibly the mitral regurgitation. Discharge Summary Discharge Physical Exam Allergies: Coded Allergies: Sulfa (Sulfonamide Antibiotics) (Verified Allergy, Unknown, 04/24/09) amoxicillin (Verified Allergy, Unknown, 04/23/09) Uncoded Allergies: TRIMOX (Allergy, Mild, 03/31/09) ENVIRONMENTAL (Allergy, Unknown, 06/15/20) nasal drainage Vitals & I&Os Vital Signs Date Time Temp Pulse Resp B/P (MAP) Pulse Ox O2 Delivery O2 Flow Rate FiO2 04/22/21 14:51 04/22/21 12:00 37.1 87 22 92 Nasal Cannula 2.00 04/20/21 23:46 21 General Appearance: No Apparent Distress, Chronically ill, Thin Respiratory: Lungs Clear, No Respiratory Distress Cardiovascular: Regular Rate, Rhythm, Systolic Murmur Neurologic/Psychiatric: Alert, Oriented x3 Hospital Course Patient was admitted secondary to acutely decompensated systolic heart failure. She was treated with IV Lasix and did well. She was also seen by physical therapy. I offered her an inpatient rehab evaluation though she elected to go home instead. I did give her the number for inpatient rehab should she change her mind after being home. Her Lasix was changed to every day dosing from every other day dosing upon discharge. I also arranged for exertional supplemental oxygen and a walker as she had been borrowing her 's. She was discharged home in stable and improved condition to follow-up with Dr. Macdonald. Labs (last 24 hrs) Patient resulted labs reviewed. Pending Labs Discussion & Recommendations Discharge Planning: >30 minutes discharge planning Discharge Home Medications: Active Scripts Active Reported Carvedilol 3.125 Mg Tablet 3.125 Mg PO BID Furosemide 20 Mg Tablet 20 Mg PO DAILY Aspirin EC (Aspirin) 81 Mg Tablet.dr 81 Mg PO HS Tylenol Extra Strength (Acetaminophen) 500 Mg Tablet 500-1,000 Mg PO Q8H PRN Cetirizine HCl 10 Mg Tablet 10 Mg PO DAILY Vitamin D3 (Cholecalciferol (Vitamin D3)) 25 Mcg Capsule 25 Mcg PO DAILY Multivitamin 1 Each Tablet 1 Each PO DAILY Cranberry Concentrate Softgel (Cranberry Conc/Ascorbic Acid) 1 Each Capsule 1 Each PO DAILY Sertraline HCl 25 Mg Tablet 25 Mg PO BID Metformin HCl 500 Mg Tablet 1,000 Mg PO BID TAKES 2 (500MG) TABS Clopidogrel (Clopidogrel Bisulfate) 75 Mg Tablet 75 Mg PO DAILY Atorvastatin Calcium 40 Mg Tablet 40 Mg PO HS Instructions to patient/family Please see electronic discharge instructions given to patient. PHIL MARTINEZ MD Apr 22, 2021 09:36
[2021-04-22 12:00] VITALS: BP 98/67
--- NOTE | 2021-04-22 12:15 | Physical Therapy Evaluation ---
PT Evaluation-General Medical Diagnosis Admission Date Apr 20, 2021 at 22:34 Medical Diagnosis: Acute on chronic heart failure Onset Date: Apr 20, 2021 Therapy Diagnosis Therapy Diagnosis: weakness Precautions Precautions/Isolations: Fall Prevention, Standard Precautions Weight Bear Status Right Lower Extremity: Right Full Weight Bearing Left Lower Extremity: Left Full Weight Bearing Referral Physician: Kayleen Reason for Referral: Evaluation/Treatment Medical History Pertinent Medical History: CAD, DM, [place] Additional Medical History (R) hip Sx, 2 heart stents, pacemaker, aortic stenosis, high cholestrol, HTN, valvular heart disease, chronic UTI, spinal stenosis, compression Fx, arthritis, NIDDM, anxiety Current History Pt reports gradually increasing SOB with exertion over 2 weeks. Presented to ED on 04/20/2021 with SOB and (B) pedal edema. Pt also reports she has two falls in the last week; "I just felt like my legs were weak". Reviewed History: Yes Social History Home: Single Level Current Living Status: Spouse Entry Into Home: Stairs With Railing PT Steps Into Home: 3 Prior Prior Level of Function SCALE: Activities may be completed with or without assistive devices. 7-Jzwlzkbzbh-kqfceww completes the activity by him/herself with no assistance from a helper. 5-Set-up or Clean-up Assistance-helper sets up or cleans up; patient completes activity. Lewis assists only prior to or following the activity. 4-Supervision or Touching Assistance-helper provides verbal cues and/or touching/steadying and/or contact guard assistance as patient completes activity. Assistance may be provided throughout the activity or intermittently. 3-Partial/Moderate Assistance-helper does LESS THAN HALF the effort. Lewis lifts, holds or supports trunk or limbs, but provides less than half the effort. 2-Substantial/Maximal Assistance-helper does MORE THAN HALF the effort. Lewis lifts or holds trunk or limbs and provides more than half the effort. 6-Xlcnocjol-padrkv does ALL the effort. Patient does none of the effort to complete the activity. Or, the assistance of 2 or more helpers is required for the patient to complete the activity. If activity was not attempted, code reason: 7-Patient Refused. 9-Not Applicable-not attempted and the patient did not perform the activity be fore the current illness, exacerbation or injury. 10-Not Attempted due to Environmental Limitations-(lack of equipment, weather restraints, etc.). 88-Not Attempted due to Medical Conditions or Safety Concerns. Bed Mobility: 6 Transfers (B,C,W/C): 6 Gait: 6 Stairs: 6 Wheelchair Mobility: 9 Indoor Mobility (Ambulation): Independent Stairs: Independent Prior Devices Use: None Prior Device Use: Pt reports (I) at [facility]. Has utilized her spouse's walker for the last week PT Evaluation-Current Subjective Pt sitting EOB, agreeable. Pt reports she was resistant initially to using a walker "But I realize it does help me stay steady. I would like one that fits me". Pt/Family Goals Home today with HH Objective Patient Orientation: Person, Place, Time, Situation ROM/Strength ROM Upper Extremities Grossly WFL for mobility ROM Lower Extremities Grossly WFL for mobility Strength Upper Extremities Grossly WFL for mobility Strength Lower Extremities Grossly 3+/5 Integumentary/Posture Integumentary See nurses' notes Posture Kyphotic Sensory Vision: Wears Glasses Transfers Sit to Stand (QC): 5 Gait Does the Patient Walk?: Yes Mode of Locomotion: Walk Anticipated Mode of Locomotion: Walk Walk 10 feet (QC): 5 Walk 50 ft with 2 Turns(QC): 5 Distance: 50 Gait Assistive Device: FWW Comments/Gait Description Pt ambulated in room with multiple turns due to cardiac monitoring lines. SBA- mod (I) with FWW, safe turns. Wheelchair Training Does the Pt Use a Wheelchair?: No Balance Sitting Static: Normal Sitting Dynamic: Normal Standing Static: Good Standing Dynamic: Good Assessment/Needs Pt would benefit from skilled PT upon discharge to improve functional strength and activity tolerance and improve (I) with functional tasks. She would benefit from a FWW for dynamic balance as well as energy conservation with mobility. Discussed recommendation for FWW with nursing. Rehab Potential: Good Equipment Needs FWW PT Short Term Goals Short Term Goals Time Frame: Apr 26, 2021 Roll Left & Right: 6 Sit to lyin Lying to sitting on side of be: 6 Sit to stand: 6 PT Boat Canvas Installer Goals Detention Goals PT Boat Canvas Installer Goals Time Frame: Apr 29, 2021 Roll Left & Right (QC): 6 Sit to Lying (QC): 6 Lying-Sitting on Side/Bed(QC): 6 Sit to Stand (QC): 6 Chair/Ldy-mp-Tbvgt Xfer(QC): 6 Toilet Transfer (QC): 6 Car Transfer (QC): 6 Does the Patient Walk: Yes Walk 10 feet (QC): 6 Walk 50ft with 2 Turns (QC): 6 Walk 150 ft (QC): 6 Walking 10ft on Uneven Surface: 5 1 Step (curb) (QC): 5 4 Steps (QC): 5 12 Steps (QC): 9 Picking up an Object (QC): 6 Does the Pt use WC or Scooter?: No Type: N/A Type: N/A PT LTGs established to allow safe return home. PT Plan Problem List Problem List: Activity Tolerance, Functional Strength, Safety, Balance, Gait, Transfer Treatment/Plan Treatment Plan: Continue Plan of Care Treatment Plan: Education, Functional Activity Iris, Functional Strength, Gait, Safety, Therapeutic Exercise, Transfers Treatment Duration: Apr 29, 2021 Frequency: 6 times per week Estimated Hrs Per Day: .25 hour per day Safety Risks/Education Patient Education: Gait Training Teaching Recipient: Patient Teaching Methods: Discussion Response to Teaching: Verbalize Understanding, Return Demonstration Discharge Recommendations Equpiment Recommendations-D/C: Front Wheeled Walker Time/GCodes Time In: 1150 Time Out: 1206 Total Billed Treatment Time: 16 Total Billed Treatment 1, ANATOLYC x 16' ARTIE LYON DPWhitney Apr 22, 2021 12:15
== END 2021-04-22 14:45 | disposition home or self-care (01) | DRG 291 ==
LOC: EDUNIT# 19:36 → ER 19:37 → CSD 22:34
PROVIDERS: ADMIT Internal Medicine; ATTEND Internal Medicine
DX: I13.0 Hypertensive heart and chronic kidney disease with heart failure and stage 1 through stage 4 chronic kidney disease, or unspecified chronic kidney disease (principal); I50.23 Acute on chronic systolic (congestive) heart failure; N17.9 Acute kidney failure, unspecified; I42.9 Cardiomyopathy, unspecified; I25.10 Atherosclerotic heart disease of native coronary artery without angina pectoris; I35.0 Nonrheumatic aortic (valve) stenosis; I49.5 Sick sinus syndrome; N18.9 Chronic kidney disease, unspecified; Z20.822 Contact with and (suspected) exposure to COVID-19; E78.2 Mixed hyperlipidemia; I34.0 Nonrheumatic mitral (valve) insufficiency; E78.00 Pure hypercholesterolemia, unspecified; M19.90 Unspecified osteoarthritis, unspecified site; G89.29 Other chronic pain; M54.9 Dorsalgia, unspecified; E11.22 Type 2 diabetes mellitus with diabetic chronic kidney disease; F41.9 Anxiety disorder, unspecified; Z79.82 Long term (current) use of aspirin; Z79.84 Long term (current) use of oral hypoglycemic drugs; Z79.899 Other long term (current) drug therapy; Z95.5 Presence of coronary angioplasty implant and graft; Z87.891 Personal history of nicotine dependence
CPT/HCPCS: 36415; 71045; 71046; 80048; 80053; 80061; 82947; 83735; 83874; 83880; 84484; 85025; 85610; 85730; 87636; 93005; 93041; 94761

== ENCOUNTER 2021-07-29 11:43 | Inpatient (IN) | payer MEDICARE ==
[~2021-07-29] VITALS: Ht 150 cm; Wt 48.4 kg
[~2021-07-29 11:43] MED LIST changes: +FURO20TA4 PO
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
[2021-07-29 12:13] LABS: BASOPHILS # (AUTO) 0.1 10^3/uL (0.0-0.1); BASOPHILS % (AUTO) 1 % (0-10); EOSINOPHILS # (AUTO) 0.4 10^3/uL (0.0-0.3); EOSINOPHILS % (AUTO) 6 % (0-10); HEMATOCRIT 31 % (35-52); HEMOGLOBIN 9.9 g/dL (11.5-16.0); LYMPHOCYTES # (AUTO) 1.5 10^3/uL (1.0-4.0); LYMPHOCYTES % (AUTO) 21 % (12-44); MEAN CORPUSCULAR HEMOGLOBIN 28 pg (25-34); MEAN CORPUSCULAR HGB CONC 32 g/dL (32-36); MEAN CORPUSCULAR VOLUME 90 fL (80-99); MEAN PLATELET VOLUME 12.8 fL (9.0-12.2); MONOCYTES # (AUTO) 0.6 10^3/uL (0.0-1.0); MONOCYTES % (AUTO) 8 % (0-12); NEUTROPHILS # (AUTO) 4.8 10^3/uL (1.8-7.8); NEUTROPHILS % (AUTO) 64 % (42-75); PLATELET COUNT 195 10^3/uL (130-400); WHITE BLOOD COUNT 7.4 10^3/uL (4.3-11.0)
[2021-07-29 12:18] LABS: POTASSIUM 5.2 MMOL/L (3.6-5.0)
[2021-07-29 12:19] LABS: CALCIUM 9.6 MG/DL (8.5-10.1)
[2021-07-29 12:20] LABS: TOTAL PROTEIN 7.5 GM/DL (6.4-8.2)
[2021-07-29 12:22] LABS: BILIRUBIN,TOTAL 0.4 MG/DL (0.1-1.0)
[2021-07-29 12:24] LABS: CREATININE SERUM 4.67 MG/DL (0.60-1.30)
[2021-07-29 12:27] LABS: MAGNESIUM 1.6 MG/DL (1.6-2.4)
[2021-07-29 13:01] LABS: BILIRUBIN,URINE NEGATIVE (NEGATIVE); CLARITY,URINE CLEAR; COLOR,URINE YELLOW; GLUCOSE, URINE (UA) NEGATIVE (NEGATIVE); KETONES,URINE 1+ (NEGATIVE); LEUKOCYTE ESTERASE ,URINE TRACE (NEGATIVE); NITRITE,URINE NEGATIVE (NEGATIVE); PH,URINE 5.5 (5-9); PROTEIN,URINE TRACE (NEGATIVE)
[2021-07-29 13:10] LABS: BACTERIA,URINE NEGATIVE /HPF; RBC,URINE RARE /HPF
--- NOTE | 2021-07-29 13:17 | Diagnostic Imaging Report ---
Clinical Indication: Patient reports loose stools and unable to eat and drink. Has weakness and nausea x1 week. Exam: Portable chest x-ray upright view. Comparisons: Portable chest x-ray dated 04/20/2021. Findings: There is interval improved aeration of both lungs and resolution of the previously seen bilateral pleural effusions. There is no pneumothorax. There is no definite lung infiltrate. There is increased lung markings in both lungs which may be related to chronic lung changes. There is cardiomegaly with no significant pulmonary vascular congestion. Cardiac pacemaker again seen. Surgical clips are seen overlying the right upper quadrant which could be related to cholecystectomy changes. Bones show no significant interval abnormality. IMPRESSION: 1: There is no radiographic evidence of acute cardiopulmonary process. 2: There are curvilinear opacities in both lungs which may be related to chronic lung changes. 3: There is cardiomegaly with no significant pulmonary vascular congestion. Dictated by: Dictated on workstation # [id number]
[2021-07-29] MEDS ORDERED: CATHETER FLUSH 10 ML SYR IV PRN ×2 (14:00→16:15)
[2021-07-29 15:21] VITALS: BP 111/85
[2021-07-29] MEDS: LACTATED RINGERS 1,000 ML IV SCH (15:27)
[2021-07-29] MEDS ORDERED: RT-ALBUTEROL SULF 2.5 MG/3 ML PRE-MIX VIAL INH PRN (15:30)
[2021-07-29 16:00] VITALS: BP 128/79
[2021-07-29] MEDS: RT-ALBUTEROL SULF 2.5 MG/3 ML PRE-MIX VIAL INH SCH (18:13)
[2021-07-29 19:10] VITALS: BP 116/64
[2021-07-29] MEDS: ACETAMINOPHEN 325 MG TABLET PO PRN (23:17)
[2021-07-30] VITALS (7 sets, daily range): BP systolic 110–125; BP diastolic 59–74
[2021-07-30] MEDS: LACTATED RINGERS 1,000 ML IV SCH ×3 (00:16→20:46)
[2021-07-30] MEDS: RT-ALBUTEROL SULF 2.5 MG/3 ML PRE-MIX VIAL INH SCH ×4 (06:16→18:48)
[2021-07-30 06:27] LABS: POTASSIUM 4.6 MMOL/L (3.6-5.0)
[2021-07-30 06:28] LABS: CALCIUM 8.6 MG/DL (8.5-10.1)
[2021-07-30 06:33] LABS: CREATININE SERUM 4.47 MG/DL (0.60-1.30)
[2021-07-30] MEDS: ASPIRIN 81 MG CHEW (CHILDREN'S ASA) PO SCH (08:16)
[2021-07-30] MEDS: ACETAMINOPHEN 325 MG TABLET PO PRN ×2 (08:16→20:43)
[2021-07-30] MEDS ORDERED: FURO40TA4 PO (08:32)
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
--- NOTE | 2021-07-30 14:42 | Consultation-Cardiology ---
HPI-Cardiology Cardiology Consultation: Date of Consultation 07/30/2021 Date of Admission 07/29/2021 Attending Physician Mary Ellen Hytat MD Admitting Physician Nick Macdonald DO Consulting Physician YESSICA WHITTEN JR, MD HPI: Time Seen by a Provider: 14:37 Chief Complaint: Reason for consultation: Elevated troponin level and heart failure. I had the pleasure of seeing Liza on the medical/surgical unit at [facility] in [place], [place] this afternoon. She has an extensive past cardiac history. She normally follows with Dr. Lyons from [facility]. She was actually here in our hospital back in April,. After discharge from that hospitalization, she had followed up with Dr. Lyons who recommended she double her dose of furosemide. That was a few weeks ago. After adjusting her medication, she started having diarrhea. She has also had poor appetite with decreased intake of both food and liquids. She has also been having severe nausea. Yesterday she felt very weak and had severe nausea and came to the hospital for further evaluation. She was found to be in acute renal failure and had an elevated troponin level. Because of this, a cardiology consultation was requested. She was given intravenous fluids overnight and continues on lactated Ringer's at 100 mL's per hour. She states her nausea is improved. She denies dyspnea. She had been having some dyspnea on exertion at home but only after she overexerted. She denies chest discomfort, paroxysmal nocturnal dyspnea, insomnia, palpitations, lightheadedness, syncope, or lower extremity edema. She has been using oxygen as needed at home. She told me she would not want dialysis but would want to be intubated if needed. Certain portions of this document may have been dictated utilizing voice recognition technology. Inherent to this technology, typographical and grammatical errors may exist. As much as I am diligent to identify and correct these mistakes, some errors may remain in the document. Review of Systems-Cardiology Review of Systems Other comments Review of 10 organ systems is as per the history of present illness, otherwise negative. All Other Systems Reviewed Negative Unless Noted: Yes FCK-Spmglw-Jruuyd Hx Patient Social History Smoking Status: Former Smoker 2nd Hand Smoke Exposure: No Have you traveled recently?: No Alcohol Use?: No Pt feels they are or have been: No Immunizations Up To Date Tetanus Booster (TDap): More than 5yrs Date of Influenza Vaccine: Jun 20, 2021 Past Medical History PMH As described under Assessment. Family Medical History Family Medical History: Reports father had CAD Allergies and Home Medications Allergies Coded Allergies: Sulfa (Sulfonamide Antibiotics) (Verified Allergy, Unknown, 04/24/09) amoxicillin (Verified Allergy, Unknown, 04/23/09) Uncoded Allergies: TRIMOX (Allergy, Mild, 03/31/09) ENVIRONMENTAL (Allergy, Unknown, 06/15/20) nasal drainage Patient Home Medication List Home Medication List Reviewed: Yes Acetaminophen (Tylenol Extra Strength) 500 Mg Tablet, 500-1,000 MG PO Q8H PRN for PAIN-MILD (1-4), (Reported) Entered as Reported by: YUMI LAURA on 03/02/211228 Last Action: Held Aspirin (Aspirin EC) 81 Mg Tablet.dr, 81 MG PO HS, (Reported) Entered as Reported by: YUMI LAURA on 03/02/211228 Last Action: Continued Atorvastatin Calcium (Atorvastatin Calcium) 40 Mg Tablet, 40 MG PO HS, (Reported) Entered as Reported by: YUMI LAURA on 03/02/211228 Last Action: Continued Carvedilol (Carvedilol) 3.125 Mg Tablet, 3.125 MG PO BID, (Reported) Entered as Reported by: YUMI LAURA on 04/21/21 102 Last Action: Continued Cetirizine HCl (Cetirizine HCl) 10 Mg Tablet, 10 MG PO DAILY, (Reported) Entered as Reported by: YUMI LAURA on 03/02/211228 Last Action: Converted Cholecalciferol (Vitamin D3) (Vitamin D3) 25 Mcg Capsule, 25 MCG PO DAILY, (Reported) Entered as Reported by: YUMI LAURA on 03/02/211228 Last Action: Held Clopidogrel Bisulfate (Clopidogrel) 75 Mg Tablet, 75 MG PO DAILY, (Reported) Entered as Reported by: YUMI LAURA on 03/02/211228 Last Action: Continued Cranberry Conc/Ascorbic Acid (Cranberry Concentrate Softgel) 1 Each Capsule, 1 EACH PO DAILY, (Reported) Entered as Reported by: YUMI LAURA on 03/02/211228 Last Action: Held Furosemide (Furosemide) 40 Mg Tablet, 40 MG PO, (Reported) Entered as Reported by: LAILA HUNTLEY on 07/30/21 0832 Last Action: Held Metformin HCl (Metformin HCl) 500 Mg Tablet, 1,000 MG PO BID, (Reported) Entered as Reported by: YUMI LAURA on 03/02/21 1229 Last Action: Held Multivitamin (Multivitamin) 1 Each Tablet, 1 EACH PO DAILY, (Reported) Entered as Reported by: YUMI LAURA on 03/02/21 1229 Last Action: Held Sertraline HCl (Sertraline HCl) 25 Mg Tablet, 25 MG PO BID, (Reported) Entered as Reported by: YUMI LAURA on 03/02/21 1229 Last Action: Converted Discontinued Medications Furosemide (Furosemide) 20 Mg Tablet, 20 MG PO DAILY, (Reported) Discontinued Reason: No Longer Taking Entered as Reported by: YUMI LAURA on 04/21/21 1023 Last Action: Discontinued Exam Vital Signs Vital Signs Date Time Temp Pulse Resp B/P (MAP) Pulse Ox O2 Delivery O2 Flow Rate FiO2 07/30/21 13:00 68 07/30/21 11:12 36.2 18 116/74 (88) 96 Room Air 07/30/21 06:16 1.50 07/29/21 15:21 21 Physical Exam General: Alert. No acute distress. Well nourished and appears stated age. Eye: Extraocular movements are intact. Conjunctivae are clear. There are no xanthelasma. HENT: Normocephalic. Atraumatic. Carotid pulsations 2/2 without bruits. Neck: Jugular venous pressure does not appear elevated. No thyromegaly appreciated. Respiratory: Lungs are clear to auscultation. Respirations are non-labored. Breath sounds are equal. Symmetrical chest wall expansion. Cardiovascular: Normal rate. Regular rhythm. 3/6 systolic ejection murmur. No gallop. Point of maximal impulse is not appear displaced. Good pulses equal in all extremities. No edema. Gastrointestinal: Soft. Normal bowel sounds. Skin: Skin turgor is normal. There is no pallor. Musculoskeletal: No kyphosis or scoliosis appreciated. Neurologic: Alert and oriented to person, place, time. Cranial nerves 3-12 appear grossly intact. The patient has good motor tone strength in the upper and lower extremities bilaterally. Psychiatric: Cooperative. Appropriate mood & affect. Labs Laboratory Tests Test 07/29/21 20:15 07/30/21 06:10 Range/Units Glucometer 104 70-110 MG/DL Sodium Level 138 135-145 MMOL/L Potassium Level 4.6 3.6-5.0 MMOL/L Chloride Level 101 98-107 MMOL/L Carbon Dioxide Level 20 L 21-32 MMOL/L Anion Gap 17 H 5-14 MMOL/L Blood Urea Nitrogen 97 H 7-18 MG/DL Creatinine 4.47 H 0.60-1.30 MG/DL Estimat Glomerular Filtration Rate 9 BUN/Creatinine Ratio 22 Glucose Level 87 70-105 MG/DL Calcium Level 8.6 8.5-10.1 MG/DL ECG Impression ECG Comment Sinus rhythm with dual-chamber pacemaker with atrial sensing and ventricular sensing and pacing. Diagnosis/Problems Diagnosis/Problems (1) Elevated troponin Status: Acute Assessment & Plan: She is not having any angina. Her ECG is indeterminate due to the ventricular paced rhythm. I suspect this is noncardiac elevation of the troponin due to her acute renal failure. This does not represent an acute myocardial infarction. (2) Acute on chronic HFrEF (heart failure with reduced ejection fraction) Status: Acute Assessment & Plan: Despite being dehydrated with acute renal failure, she does have probable ongoing heart failure. She is now getting intravenous fluids. We will need to monitor her fluid status closely so that she does not develop pulmonary edema. As above, she did state that if she were to develop severe respiratory insufficiency, she would agree to intubation if this was to be temporary. (3) Cardiomyopathy Assessment & Plan: Fozia has severe left ventricular systolic dysfunction. She is ordered for low-dose carvedilol. Not presently a candidate for any of the other guideline directed medical therapy due to the acute renal failure. Due to her advanced age, she would not be an ideal candidate for prophylactic defibrillator implantation. (4) Coronary artery disease without angina pectoris Assessment & Plan: As above, she is not having any angina. I recommend she continue on aspirin, beta-maureen, and statin medication. I do not believe she is having an acute myocardial infarction but rather, has noncardiac elevation of the troponin due to the profound acute renal failure. (5) Aortic stenosis Status: Chronic Assessment & Plan: She has severe aortic stenosis. This is being followed by her regular acute dialysis nurse in [place], [place]. In light of the aortic stenosis, I would be cautious with afterload reducing medications and large doses of intravenous diuretic. (6) Sick sinus syndrome Assessment & Plan: She has a permanent pacemaker in place that appears to be functioning normally. (7) Pulmonary hypertension Assessment & Plan: This is most likely related to the chronic underlying heart failure as well as her valvular heart disease. (8) Acute kidney injury superimposed on chronic kidney disease Status: Acute Assessment & Plan: She has rather profound elevation of the creatinine level. She is receiving IV fluids to help reverse this. She stated that she does not want hemodialysis if it comes to that. YESSICA WHITTEN JR, MD Jul 30, 2021 14:42
[2021-07-30] MEDS ORDERED: inSUlin ASPART (NovoLOG) 1 UNIT/0.01 ML (CHARGE PER UNIT) SC SCH (15:00)
[2021-07-30] MEDS: inSUlin ASPART (NovoLOG) 1 UNIT/0.01 ML (CHARGE PER UNIT) SC SCH ×3 (15:41→20:43)
[2021-07-30] MEDS: SERTRALINE 50 MG (ZOLOFT) TABLET PO SCH (20:43)
[2021-07-30] MEDS ORDERED: NON-FORMULARY MEDICATION 1 EA EA (Sertraline HCl 25 MG) PO SCH (21:00)
[2021-07-30] MEDS ORDERED: ASPIRIN E.C. 81 MG (ECOTRIN) TAB PO SCH (21:00)
[2021-07-31] VITALS (23 sets, daily range): BP systolic 92–191; BP diastolic 54–93
[2021-07-31] MEDS: inSUlin ASPART (NovoLOG) 1 UNIT/0.01 ML (CHARGE PER UNIT) SC SCH ×4 (05:31→20:39)
[2021-07-31] MEDS: LACTATED RINGERS 1,000 ML IV SCH ×2 (05:44→07:16)
[2021-07-31] MEDS: RT-ALBUTEROL SULF 2.5 MG/3 ML PRE-MIX VIAL INH SCH ×4 (07:27→19:19)
[2021-07-31] MEDS: ASPIRIN 81 MG CHEW (CHILDREN'S ASA) PO SCH (07:52)
[2021-07-31] MEDS: CLOPIDOGREL 75 MG (PLAVIX) TABLET PO SCH (07:52)
[2021-07-31] MEDS: LORATADINE (CLARITIN) 10 MG TAB PO SCH (07:52)
[2021-07-31] MEDS: SERTRALINE 50 MG (ZOLOFT) TABLET PO SCH ×2 (07:52→20:41)
[2021-07-31 07:59] LABS: BASOPHILS % (AUTO) 1 % (0-10); EOSINOPHILS # (AUTO) 0.8 10^3/uL (0.0-0.3); EOSINOPHILS % (AUTO) 10 % (0-10); HEMATOCRIT 30 % (35-52); HEMOGLOBIN 9.7 g/dL (11.5-16.0); LYMPHOCYTES # (AUTO) 1.4 10^3/uL (1.0-4.0); LYMPHOCYTES % (AUTO) 19 % (12-44); MEAN CORPUSCULAR HEMOGLOBIN 29 pg (25-34); MEAN CORPUSCULAR HGB CONC 32 g/dL (32-36); MEAN CORPUSCULAR VOLUME 89 fL (80-99); MEAN PLATELET VOLUME 12.3 fL (9.0-12.2); MONOCYTES # (AUTO) 0.7 10^3/uL (0.0-1.0); MONOCYTES % (AUTO) 10 % (0-12); NEUTROPHILS # (AUTO) 4.3 10^3/uL (1.8-7.8); NEUTROPHILS % (AUTO) 60 % (42-75); PLATELET COUNT 177 10^3/uL (130-400); WHITE BLOOD COUNT 7.3 10^3/uL (4.3-11.0)
[2021-07-31 08:17] LABS: ALBUMIN 3.5 GM/DL (3.2-4.5); BILIRUBIN,TOTAL 0.3 MG/DL (0.1-1.0); CALCIUM 9.2 MG/DL (8.5-10.1); CREATININE SERUM 4.34 MG/DL (0.60-1.30); POTASSIUM 4.5 MMOL/L (3.6-5.0); TOTAL PROTEIN 6.3 GM/DL (6.4-8.2)
[2021-07-31 08:20] LABS: ABG BASE EXCESS -1.4 MMOL/L (-2.5-2.5); ABG OXYGEN SATURATION 91 % (94-100); ABG PCO2 43 MMHG (35-45); ABG PH 7.35 (7.37-7.43); ABG PO2 62 MMHG (79-93)
[2021-07-31 08:24] LABS: ALLENS TEST YES-POS; INSPIRED O2 4 L; VENTILATOR NO
[2021-07-31] MEDS ORDERED: ONDANSETRON 4 MG/2 ML (SDV) Z0FRAN ONE ×2 (08:29→08:31)
[2021-07-31] MEDS ORDERED: ONDANSETRON 4 MG/2 ML (SDV) Z0FRAN IVP PRN ×2 (08:30→09:00)
[2021-07-31] MEDS ORDERED: FUROSEMIDE 40 MG/4 ML INJ (LASIX) ONE (08:31)
[2021-07-31] MEDS ORDERED: FUROSEMIDE 40 MG/4 ML INJ (LASIX) IVP ONE (08:45)
[2021-07-31] MEDS ORDERED: NON-FORMULARY MEDICATION 1 EA EA (Cetirizine HCl 10 MG) PO SCH (09:00)
--- NOTE | 2021-07-31 11:25 | Progress Note - Hospitalist ---
YESSICA OLIVEIRA 07/31/21 1125: Subjective HPI/CC On Admission Date Seen by Provider: Jul 31, 2021 Time Seen by Provider: 08:29 Liza Melendrez is an 89 year old female with PMH HTN, HLD, T2DM, SSS s/p pacemaker, aortic stenosis, HFrEF, CAD, CKD III, who presented with weakness. She has also been having nausea and diarrhea. She was hospitalized a few months ago due to heart failure. Her Lasix was increased at that time. She has been having diarrhea since that time. Subjective/Events-last exam Today when I attempted to visit the patient she was experiencing significant respiratory distress. Nursing staff was in the room and actively providing care and in the process of transferring the pt up to ICU for more intensive care. Review of Systems Pulmonary: Dyspnea Objective Exam Vital Signs Vital Signs Date Time Temp Pulse Resp B/P (MAP) Pulse Ox O2 Delivery O2 Flow Rate FiO2 07/31/21 11:30 36.9 07/31/21 10:48 90 18 99 35.00 07/31/21 10:45 NIV Bilevel 07/31/21 09:30 120/87 (98) 07/31/21 08:45 50 Capillary Refill : Less Than 3 Seconds General Appearance: Moderate Distress Respiratory: Respiratory Distress Cardiovascular: Tachycardia Neurologic/Psychiatric: Alert Skin: Warm/Dry, Pallor Results/Procedures Lab Laboratory Tests 07/31/21 07:53 Patient resulted labs reviewed. Imaging: Reviewed Imaging Report Assessment/Plan Assessment and Plan Assess & Plan/Chief Complaint Severe Respiratory distress REJI on CKD III HFrEF -Elevated troponin -CAD - Aortic stenosis HTN HLD T2DM Chronic diarrhea Plan: BIPAP for respiratory distress, she is DNI Intensive supportive care Family visiting, prognosis guarded SILVIA TEJEDA DO 08/01/21 0539: Subjective Subjective/Events-last exam I assessed patient during rapid response after I was called Patient very frail and advanced age and tachypneic BiPAP initiated Spoke with family and she is a DO NOT INTUBATE Kidney failure gives rise to inability to diurese Objective Exam General Appearance: Severe Distress Respiratory: Accessory Muscle Use, Decreased Breath Sounds, Respiratory D istress Cardiovascular: Regular Rate, Rhythm, Tachycardia Neurologic/Psychiatric: Alert, Disoriented Assessment/Plan Assessment and Plan Assess & Plan/Chief Complaint Transfer to ICU Check ABG BiPAP Patient really is hospice candidate Supervisory-Addendum Brief Verification & Attestation Participated in pt care: history, MDM, physical Personally performed: exam, history, MDM, supervision of care Care discussed with: Medical Student Procedures: n/a Results interpretation: Verified all documentation Verification and Attestation of Medical Student E/M Service A medical student performed and documented this service in my presence. I reviewed and verified all information documented by the medical student and made modifications to such information, when appropriate. I personally performed the physical exam and medical decision making. Silvia Tejeda Aug 01, 2021,05:37 YESSICA OLIVEIRA Jul 31, 2021 11:25 SILVIA TEJEDA DO Aug 01, 2021 05:39
--- NOTE | 2021-07-31 11:59 | Diagnostic Imaging Report ---
INDICATION: Shortness of air. COMPARISON: 07/29/2021 FINDINGS: Single frontal radiograph view of the chest was obtained and demonstrates persistent mild cardiomegaly. In the interim, pulmonary vasculature has become prominent. There is also mild diffuse prominence of the interstitium. Small bibasilar effusions are also suspected. No pneumothorax is seen on either side. Osseous structures show no gross acute abnormalities. Left-sided dual-lead pacemaker is noted. IMPRESSION: Cardiomegaly with interval development of features of CHF including probable interstitial pulmonary edema and small bibasilar effusions. Dictated by: Dictated on workstation # [id number]
[2021-07-31] MEDS: ACETAMINOPHEN 325 MG TABLET PO PRN (13:18)
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
--- NOTE | 2021-07-31 16:14 | Cardiology Progress Note ---
Progress Note-Cardiology Events since last exam Date Seen by Provider: Jul 31, 2021 Time Seen by Provider: 16:13 Events since last exam I am following her due to heart failure among several other cardiac issues. Last evening her oxygen requirements started increasing. At this morning, she had been turned up to 15 L of oxygen. Soon after the patient woke up this morning, she became extremely short of breath. She called for help. She was placed on BiPAP and transferred to the intensive care unit. Around this time, she was given 40 mg of intravenous Lasix. This afternoon she is off BiPAP and her breathing is improved. She is still not sure if she would want to do dialysis. She has 3 children who live out of state who are now here in [place] and at her bedside. At the present time, she denies chest discomfort, dyspnea, palpitations, syncope, or ankle edema. Certain portions of this document may have been dictated utilizing voice recognition technology. Inherent to this technology, typographical and grammatical errors may exist. As much as I am diligent to identify and correct these mistakes, some errors may remain in the document. Vitals Last set of Vitals Signs Vital Signs 07/31/21 07/31/21 07/31/21 07/31/21 12:00 15:00 15:14 16:00 Temp 37.2 Pulse 84 Resp 13 B/P (MAP) 109/65 (80) Pulse Ox 99 O2 Delivery Nasal Cannula O2 Flow Rate 2.00 FiO2 50 Labs Labs Laboratory Tests 07/31/21 07:53 Exam Vital Signs Vital Signs Date Time Temp Pulse Resp B/P (MAP) Pulse Ox O2 Delivery O2 Flow Rate FiO2 07/31/21 16:00 37.2 07/31/21 15:14 99 Nasal Cannula 2.00 07/31/21 15:00 84 13 109/65 (80) 07/31/21 12:00 50 Physical Exam General: Alert. No acute distress. Eye: No xanthelasma. HENT: Normocephalic. Neck: Jugular venous pressure does not appear elevated. Respiratory: Lungs are clear to auscultation but decreased at the bases bilaterally. Respirations are non-labored. Breath sounds are equal. Symmetrical chest wall expansion. Cardiovascular: Normal rate. Regular rhythm. 3/6 systolic ejection murmur. No gallop. No edema. Gastrointestinal: Soft. Normal bowel sounds. Skin: Warm. Dry. Neurologic: Alert and oriented to person, place, time. Cranial nerves 3-11 grossly intact. Psychiatric: Cooperative. Appropriate mood & affect. Labs Laboratory Tests Test 07/30/21 20:09 07/31/21 04:56 07/31/21 07:53 07/31/21 08:15 Range/Units Glucometer 195 H 114 H 70-110 MG/DL White Blood Count 7.3 4.3-11.0 10^3/uL Red Blood Count 3.38 L 3.80-5.11 10^6/uL Hemoglobin 9.7 L 11.5-16.0 g/dL Hematocrit 30 L 35-52 % Mean Corpuscular Volume 89 80-99 fL Mean Corpuscular Hemoglobin 29 25-34 pg Mean Corpuscular Hemoglobin Concent 32 32-36 g/dL Red Cell Distribution Width 14.3 10.0-14.5 % Platelet Count 177 130-400 10^3/uL Mean Platelet Volume 12.3 H 9.0-12.2 fL Immature Granulocyte % (Auto) 0 % Neutrophils (%) (Auto) 60 42-75 % Lymphocytes (%) (Auto) 19 12-44 % Monocytes (%) (Auto) 10 0-12 % Eosinophils (%) (Auto) 10 0-10 % Basophils (%) (Auto) 1 0-10 % Neutrophils # (Auto) 4.3 1.8-7.8 10^3/uL Lymphocytes # (Auto) 1.4 1.0-4.0 10^3/uL Monocytes # (Auto) 0.7 0.0-1.0 10^3/uL Eosinophils # (Auto) 0.8 H 0.0-0.3 10^3/uL Basophils # (Auto) 0.0 0.0-0.1 10^3/uL Immature Granulocyte # (Auto) 0.0 0.0-0.1 10^3/uL Sodium Level 140 135-145 MMOL/L Potassium Level 4.5 3.6-5.0 MMOL/L Chloride Level 104 98-107 MMOL/L Carbon Dioxide Level 22 21-32 MMOL/L Anion Gap 14 5-14 MMOL/L Blood Urea Nitrogen 85 H 7-18 MG/DL Creatinine 4.34 H 0.60-1.30 MG/DL Estimat Glomerular Filtration Rate 10 BUN/Creatinine Ratio 20 Glucose Level 120 H 70-105 MG/DL Calcium Level 9.2 8.5-10.1 MG/DL Corrected Calcium 9.6 8.5-10.1 MG/DL Total Bilirubin 0.3 0.1-1.0 MG/DL Aspartate Amino Transf (AST/SGOT) 20 5-34 U/L Alanine Aminotransferase (ALT/SGPT) 9 0-55 U/L Alkaline Phosphatase 41 40-136 U/L Total Protein 6.3 L 6.4-8.2 GM/DL Albumin 3.5 3.2-4.5 GM/DL Blood Gas Puncture Site RT RAD Blood Gas Patient Temperature 36.0 Arterial Blood pH 7.35 L 7.37-7.43 Arterial Blood Partial Pressure CO2 43 35-45 MMHG Arterial Blood Partial Pressure O2 62 L 79-93 MMHG Arterial Blood HCO3 24 23-27 MMOL/L Arterial Blood Total CO2 25.0 21.0-31.0 MMOL/L Arterial Blood Oxygen Saturation 91 L 94-100 % Arterial Blood Base Excess -1.4 -2.5-2.5 MMOL/L Ventura Test YES-POS Blood Gas Ventilator Setting NO Blood Gas Inspired Oxygen 4 L Test 07/31/21 10:42 07/31/21 15:56 Range/Units Glucometer 185 H 216 H 70-110 MG/DL Diagnosis/Problems Diagnosis/Problems (1) Acute on chronic HFrEF (heart failure with reduced ejection fraction) Status: Acute Assessment & Plan: Despite being dehydrated with acute renal failure, she does have probable ongoing heart failure. She received a fair amount of intravenous fluids and then this morning may have had flash pulmonary edema. Unclear whether or not she has cardiorenal syndrome or just developed worsening renal function due to poor oral intake at home prior to admission on top of a stronger dose of diuretic over the past couple of weeks. She did state that if she were to develop severe respiratory insufficiency, she would agree to intubation if this was to be temporary. At this point, I would just recommend a 1/2 L fluid restriction. We cannot give her any of the usual guideline directed medications due to the acute kidney injury and somewhat low blood pressure. (2) Elevated troponin Status: Acute Assessment & Plan: She is not having any angina. Her ECG is indeterminate due to the ventricular paced rhythm. I suspect this is noncardiac elevation of the troponin due to her acute renal failure. This does not represent an acute myocardial infarction. (3) Cardiomyopathy Assessment & Plan: She has severe left ventricular systolic dysfunction. She is ordered for low-dose carvedilol. As above, she is not presently a candidate for any of the other guideline directed medical therapy due to the acute renal failure. (4) Coronary artery disease without angina pectoris Assessment & Plan: She is not having any angina. I recommend she continue on aspirin, beta-maureen, and statin medication. I do not believe she is having an acute myocardial infarction but rather, has noncardiac elevation of the troponin due to the profound acute renal failure. (5) Aortic stenosis Status: Chronic Assessment & Plan: She has severe aortic stenosis. This is being followed by her regular inoculator in [place], [place]. This condition is also making fluid management difficult. In light of the aortic stenosis, I would be cautious with afterload reducing medications and large doses of intravenous diuretic. (6) Sick sinus syndrome Assessment & Plan: She has a permanent pacemaker in place that appears to be functioning normally. (7) Pulmonary hypertension Assessment & Plan: This is most likely related to the chronic underlying heart failure as well as her valvular heart disease. (8) Acute kidney injury superimposed on chronic kidney disease Status: Acute Assessment & Plan: She has rather profound elevation of the creatinine level. She received IV fluids over the past 48 hours and her renal function has not appreciably changed. Fortunately, she is still making urine. We will reassess tomorrow. If there is no change in her creatinine level tomorrow or her urine output starts to decline, then we may need to consider transfer to a facility that would have dialysis if she in fact decides she would want dialysis. When I spoke to her on the day of admission, she told me she did not want dialysis. YESSICA WHITTEN JR, MD Jul 31, 2021 16:13
[2021-08-01] VITALS (14 sets, daily range): BP systolic 91–122; BP diastolic 51–88
[2021-08-01] MEDS: inSUlin ASPART (NovoLOG) 1 UNIT/0.01 ML (CHARGE PER UNIT) SC SCH ×4 (06:04→20:59)
[2021-08-01] MEDS: RT-ALBUTEROL SULF 2.5 MG/3 ML PRE-MIX VIAL INH SCH ×4 (06:40→22:33)
[2021-08-01] MEDS: CLOPIDOGREL 75 MG (PLAVIX) TABLET PO SCH (08:31)
[2021-08-01] MEDS: SERTRALINE 50 MG (ZOLOFT) TABLET PO SCH ×2 (08:31→20:58)
[2021-08-01] MEDS: LORATADINE (CLARITIN) 10 MG TAB PO SCH (08:31)
[2021-08-01] MEDS: ASPIRIN 81 MG CHEW (CHILDREN'S ASA) PO SCH (08:31)
[2021-08-01 09:08] LABS: HEMATOCRIT 26 % (35-52); HEMOGLOBIN 8.4 g/dL (11.5-16.0); MEAN CORPUSCULAR HEMOGLOBIN 28 pg (25-34); MEAN CORPUSCULAR HGB CONC 32 g/dL (32-36); MEAN CORPUSCULAR VOLUME 88 fL (80-99); MEAN PLATELET VOLUME 12.2 fL (9.0-12.2); PLATELET COUNT 146 10^3/uL (130-400); WHITE BLOOD COUNT 6.6 10^3/uL (4.3-11.0)
[2021-08-01 09:22] LABS: CALCIUM 9.3 MG/DL (8.5-10.1); CREATININE SERUM 3.85 MG/DL (0.60-1.30); POTASSIUM 4.2 MMOL/L (3.6-5.0)
--- NOTE | 2021-08-01 09:30 | Cardiology Progress Note ---
Progress Note-Cardiology Events since last exam Date Seen by Provider: Aug 01, 2021 Time Seen by Provider: 09:29 Events since last exam I am following her for heart failure. Her breathing is better today. She is sitting up in a chair with one daughter at her beside. Her breathing is back to her previous baseline. She denies chest discomfort, palpitations, syncope, or ankle edema. Yesterday she discussed with the hospitalist that she would not want to be intubated. Today she told me she would not want to have CPR if she had cardiac arrest. She would want defibrillation and chemical code. Certain portions of this document may have been dictated utilizing voice recognition technology. Inherent to this technology, typographical and grammatical errors may exist. As much as I am diligent to identify and correct these mistakes, some errors may remain in the document. Vitals Last set of Vitals Signs Vital Signs 07/31/21 08/01/21 08/01/21 08/01/21 12:00 12:50 12:52 14:47 Temp 36.2 Pulse 79 Resp 18 B/P (MAP) 91/53 (66) Pulse Ox 100 O2 Delivery Room Air O2 Flow Rate 2.00 FiO2 50 Labs Labs Laboratory Tests 08/01/21 08:55 Exam Vital Signs Vital Signs Date Time Temp Pulse Resp B/P (MAP) Pulse Ox O2 Delivery O2 Flow Rate FiO2 08/01/21 14:47 100 Room Air 08/01/21 12:52 2.00 08/01/21 12:50 36.2 79 18 91/53 (66) 07/31/21 12:00 50 Physical Exam General: Alert. No acute distress. Eye: No xanthelasma. HENT: Normocephalic. Neck: Jugular venous pressure does not appear elevated. Respiratory: Lungs are clear to auscultation but decreased at the bases bilaterally. Respirations are non-labored. Breath sounds are equal. Symmetrical chest wall expansion. Cardiovascular: Normal rate. Regular rhythm. 3/6 systolic ejection murmur. No gallop. No edema. Gastrointestinal: Soft. Normal bowel sounds. Skin: Warm. Dry. Neurologic: Alert and oriented to person, place, time. Cranial nerves 3-11 grossly intact. Psychiatric: Cooperative. Appropriate mood & affect. Labs Laboratory Tests Test 07/31/21 15:56 07/31/21 20:39 08/01/21 05:46 08/01/21 08:55 Range/Units Glucometer 216 H 156 H 115 H 70-110 MG/DL White Blood Count 6.6 4.3-11.0 10^3/uL Red Blood Count 2.98 L 3.80-5.11 10^6/uL Hemoglobin 8.4 L 11.5-16.0 g/dL Hematocrit 26 L 35-52 % Mean Corpuscular Volume 88 80-99 fL Mean Corpuscular Hemoglobin 28 25-34 pg Mean Corpuscular Hemoglobin Concent 32 32-36 g/dL Red Cell Distribution Width 14.3 10.0-14.5 % Platelet Count 146 130-400 10^3/uL Mean Platelet Volume 12.2 9.0-12.2 fL Sodium Level 140 135-145 MMOL/L Potassium Level 4.2 3.6-5.0 MMOL/L Chloride Level 104 98-107 MMOL/L Carbon Dioxide Level 22 21-32 MMOL/L Anion Gap 14 5-14 MMOL/L Blood Urea Nitrogen 73 H 7-18 MG/DL Creatinine 3.85 #H 0.60-1.30 MG/DL Estimat Glomerular Filtration Rate 11 BUN/Creatinine Ratio 19 Glucose Level 189 H 70-105 MG/DL Calcium Level 9.3 8.5-10.1 MG/DL Magnesium Level 1.5 L 1.6-2.4 MG/DL Test 08/01/21 11:08 Range/Units Glucometer 143 H 70-110 MG/DL Diagnosis/Problems Diagnosis/Problems (1) Acute on chronic HFrEF (heart failure with reduced ejection fraction) Status: Acute Assessment & Plan: Despite being dehydrated with acute renal failure, she does have probable ongoing heart failure. She received a fair amount of intravenous fluids which have now been discontinued but may have had caused flash pulmonary edema on 07/31. Unclear whether or not she has cardiorenal syndrome or just developed worsening renal function due to poor oral intake at home prior to admission on top of a stronger dose of diuretic over the past couple of weeks p rior to admission. At this point, I would just recommend a 2 L/day fluid restriction. He has been receiving her low-dose carvedilol. She is not a candidate for any of the other medications for heart failure due to her poor renal function. (2) Cardiomyopathy Assessment & Plan: She has severe left ventricular systolic dysfunction. Above, she has been receiving low-dose carvedilol. Also as above, she is not presently a candidate for any of the other guideline directed medical therapy due to the acute renal failure. (3) Elevated troponin Status: Acute Assessment & Plan: She is not having any angina. Her ECG is indeterminate due to the ventricular paced rhythm. I suspect this is noncardiac elevation of the troponin due to her acute renal failure and does not represent an acute myocardial infarction. (4) Coronary artery disease without angina pectoris Assessment & Plan: She is not having any angina. I recommend she continue on aspirin, beta-maureen, and statin medication. I do not believe she is having an acute myocardial infarction but rather, has noncardiac elevation of the troponin due to the profound acute renal failure as outlined above. (5) Aortic stenosis Status: Chronic Assessment & Plan: She has severe aortic stenosis. This is being followed by her regular injury/safety hazard assessment in [place], [place]. This condition is also making fluid management difficult. In light of the aortic stenosis, I would be cautious with afterload reducing medications and large doses of intravenous diuretic. (6) Sick sinus syndrome Assessment & Plan: She has a permanent pacemaker in place that appears to be functioning normally. (7) Pulmonary hypertension Assessment & Plan: This is most likely related to the chronic underlying heart failure as well as her valvular heart disease. (8) Acute kidney injury superimposed on chronic kidney disease Status: Acute Assessment & Plan: Her renal function appears to be very slowly improving. I would suggest we just continue to monitor her renal function closely. I do not see any urgent need to transfer to another facility for dialysis at this time. Furthermore, she is still not sure whether or not she would want dialysis. YESSICA WHITTEN JR, MD Aug 01, 2021 09:30
[2021-08-01 10:03] LABS: MAGNESIUM 1.5 MG/DL (1.6-2.4)
--- NOTE | 2021-08-01 10:38 | Tele-ICU Progress Note ---
Subjective Date Seen by a Provider: Aug 01, 2021 Time Seen by a Provider: 10:37 Sepsis Event Evaluation Height, Weight, BMI Height: '" Weight: lbs. oz. kg; 21.51 BMI Method:Stated Exam Exam Patient acknowledged, consented, and participated in this virtual visit which was conducted using real time audio/video Vital Signs Date Time Temp Pulse Resp B/P (MAP) Pulse Ox O2 Delivery O2 Flow Rate FiO2 08/01/21 10:35 98 Nasal Cannula 2.00 08/01/21 08:30 Nasal Cannula 2.00 08/01/21 08:15 80 16 99 Nasal Cannula 2.00 08/01/21 08:00 87 14 122/88 (97) Nasal Cannula 2.00 08/01/21 07:30 68 22 97 Nasal Cannula 2.00 08/01/21 07:15 78 20 100 Nasal Cannula 2.00 08/01/21 07:00 77 08/01/21 07:00 80 21 119/67 (90) 100 Nasal Cannula 2.00 08/01/21 07:00 Nasal Cannula 2.00 08/01/21 06:41 99 Nasal Cannula 2.00 08/01/21 06:00 69 20 104/57 (73) 99 Nasal Cannula 2.00 08/01/21 05:00 86 14 120/64 (84) 94 Nasal Cannula 2.00 08/01/21 04:07 Nasal Cannula 2.00 08/01/21 04:00 36.9 08/01/21 04:00 82 26 114/56 (78) 91 Nasal Cannula 2.00 08/01/21 03:00 72 19 101/51 (68) 96 Nasal Cannula 2.00 08/01/21 02:00 71 23 97/51 (73) 97 Nasal Cannula 2.00 08/01/21 01:00 73 08/01/21 01:00 73 26 93/51 (69) 98 Nasal Cannula 2.00 08/01/21 00:00 36.6 08/01/21 00:00 70 122/77 (92) 98 Nasal Cannula 2.00 08/01/21 00:00 Nasal Cannula 2.00 07/31/21 23:00 71 10 101/61 (74) 100 Nasal Cannula 2.00 07/31/21 22:00 68 21 103/60 (74) 99 Nasal Cannula 2.00 07/31/21 21:00 82 16 111/69 (83) 98 Nasal Cannula 2.00 07/31/21 20:00 Nasal Cannula 2.00 07/31/21 20:00 82 19 106/67 (80) 98 Nasal Cannula 2.00 07/31/21 20:00 37.2 07/31/21 19:19 98 Nasal Cannula 2.00 07/31/21 19:00 87 07/31/21 19:00 87 25 104/64 (77) 99 Nasal Cannula 2.00 07/31/21 18:00 75 17 105/63 (77) 95 Nasal Cannula 2.00 07/31/21 17:00 88 11 94/54 (67) 98 Nasal Cannula 2.00 07/31/21 16:00 Nasal Cannula 2.00 07/31/21 16:00 37.2 07/31/21 16:00 93 23 106/63 (77) 98 Nasal Cannula 2.00 07/31/21 15:14 99 Nasal Cannula 2.00 07/31/21 15:00 84 13 109/65 (80) 98 Nasal Cannula 2.00 07/31/21 14:15 Nasal Cannula 2.00 07/31/21 14:00 Room Air 07/31/21 14:00 81 19 110/67 (81) 91 Room Air 07/31/21 13:00 82 13 107/68 (81) 99 NIV Bilevel 35.00 07/31/21 13:00 85 07/31/21 12:00 NIV Bilevel 50 07/31/21 12:00 85 11 104/64 (77) 99 NIV Bilevel 35.00 07/31/21 11:30 36.9 07/31/21 11:00 92 26 92/61 (71) 98 NIV Bilevel 35.00 07/31/21 10:48 90 18 99 35.00 07/31/21 10:45 NIV Bilevel 35.00 I & O 08/01/21 07:00 Intake Total 840 ml Output Total 2150 ml Balance -1310 ml Height & Weight Height: '" Weight: lbs. oz. kg; 21.51 BMI Method:Stated General Appearance: Severe Distress HEENT: PERRL/EOMI, Pharynx Normal Neck: Normal Inspection, Supple Respiratory: Accessory Muscle Use, Decreased Breath Sounds, Respiratory Distress Cardiovascular: Regular Rate, Rhythm, Tachycardia Capillary Refill: Less Than 3 Seconds Gastrointestinal: normal bowel sounds, non tender, soft; No distended, No guarding, No rebound Extremity: Normal Inspection, Non Tender, No Pedal Edema Neurologic/Psychiatric: Alert, Disoriented Skin: Warm/Dry, Pallor Results Lab Laboratory Tests 07/31/21 07:53 08/01/21 08:55 Assessment/Plan Assessment/Plan (Tele-ICU Physician , Progress Note ) Available chart/ vitals / labs / Images reviewed Video assessment done using teleICU camera, rest of exam as per RN Discussed with RN , EXAM PER RN Events overnight : Afebrile FiO2 - 2l I/O = neg 700 Drips: Pressors: , hemodynamically stable Consultants: car Hospital course: 07/29 - weakness, REJI , elv trop 07/31 - to ICU with ARF -BIAPAP 08/01 - 2 l nc A/P Acute resp failure with VO s a results of hydration attempts - on BIPAP 21/01 - 50% rr 21 TV 300-400 - lasix given - > neg 800 ml -> to 2 l NC REJI- suspected prerenal - Cr 4.6 -> 3.8 - follow - as per notes - patint did not wanted HD ( which will be not easy given EF and severe ICM - ECHO 02/2021 - EF 20% - as per crds - needs gentle hydration given REJI Elv trop, h/o CAD , SSS - post pacemaker , - as per card chronic diarrhea- non here - as per bedside DM II - ISS Chronic hypoxia - on O2 at home Pulmm HTN - RVSP 40 mm Lines : periph (Central Line Necessity Reviewed) Chun: + OG: Nutrition: po Analgesia: Anxiety/ delirium VTE Prophylaxis: hep sq Stress Ulcer Prophylaxis: po intake Plans in collaboration with bedside consultants and IM MDs. Discussed with RN to reach out if any questions or concerns A total of 33 minutes of critical care time was devoted to this patient today, required to treat and/or prevent further deterioration of critical care condition ( as above ) . BRYCE DESAI MD Aug 01, 2021 10:38
--- NOTE | 2021-08-01 12:35 | Progress Note - Hospitalist ---
YESSICA OLIVEIRA 08/01/21 1235: Subjective HPI/CC On Admission Date Seen by Provider: Aug 01, 2021 Time Seen by Provider: 08:41 Liza Melendrez is an 89 year old female with PMH HTN, HLD, T2DM, SSS s/p pacemaker, aortic stenosis, HFrEF, CAD, CKD III, who presented with weakness. She has also been having nausea and diarrhea. She was hospitalized a few months ago due to heart failure. Her Lasix was increased at that time. She has been having diarrhea since that time. Subjective/Events-last exam Today when I visited the patient she was sitting in a chair at bedside visiting with her daughter. She is in good spirits and does not complain of any pain or any difficulty breathing at this time. (She is on 2L O2 NC) The pt and her daughter are discussing specific future plans for her care. At this time she does not want dialysis. Review of Systems General: No Chills, No Night Sweats, No Malaise HEENT: No Head Aches, No Visual Changes, No Dysphasia Pulmonary: No Dyspnea, No Cough, No Pleuritic Chest Pain Cardiovascular: No: Chest Pain, Palpitations, Orthopnea Gastrointestinal: No: Nausea, Vomiting, Abdominal Pain Genitourinary: No Dysuria, No Frequency Musculoskeletal: No: neck pain, shoulder pain, back pain Neurological: No: Weakness, Numbness, Confusion Objective Exam Vital Signs Vital Signs Date Time Temp Pulse Resp B/P (MAP) Pulse Ox O2 Delivery O2 Flow Rate FiO2 08/01/21 11:40 36.9 08/01/21 10:35 98 Nasal Cannula 2.00 08/01/21 08:15 80 16 07/31/21 12:00 50 Capillary Refill : Less Than 3 Seconds General Appearance: No Apparent Distress, WD/WN, Chronically ill, Thin HEENT: PERRL/EOMI, Pharynx Normal Neck: Full Range of Motion, Non Tender, Supple Respiratory: Chest Non Tender, No Accessory Muscle Use, No Respiratory Distress, Crackles, Expiration, Inspiration Cardiovascular: Regular Rate, Rhythm, No Gallop, Normal Peripheral Pulses, Systolic Murmur Gastrointestinal: Non Tender, Soft Rectal: Deferred Back: No CVA Tenderness, No Vertebral Tenderness Extremity: Normal Capillary Refill, Normal Range of Motion Neurologic/Psychiatric: Alert, Oriented x3, No Motor/Sensory Deficits, Normal Mood/Affect Skin: Normal Color, Warm/Dry Lymphatic: No Adenopathy (Cervical and axillary) Results/Procedures Lab Laboratory Tests 08/01/21 08:55 Patient resulted labs reviewed. Imaging: Reviewed Imaging Report Assessment/Plan Assessment and Plan Assess & Plan/Chief Complaint Severe Respiratory distress - resolved at this time REJI on CKD III HFrEF -Elevated troponin -CAD - Aortic stenosis HTN HLD T2DM Chronic diarrhea Plan: BIPAP for respiratory distress, she is DNI Intensive supportive care Family visiting, prognosis guarded 08/01/2021 Move to 4th floor, limit fluids Palliative consult Cardiology will also follow SILVIA TEJEDA DO 08/02/21 0527: Subjective Subjective/Events-last exam Patient doing much better Off BiPAP on nasal cannula Full DO NOT RESUSCITATE now Hospice at discharge Palliative care nurse appreciated Review of Systems General: Fatigue, Malaise Pulmonary: Dyspnea Objective Exam General Appearance: No Apparent Distress, WD/WN, Chronically ill, Thin Respiratory: Crackles, Expiration, Inspiration Cardiovascular: Regular Rate, Rhythm, Systolic Murmur Neurologic/Psychiatric: Alert, Oriented x3, Depressed Affect Assessment/Plan Assessment and Plan Assess & Plan/Chief Complaint DO NOT RESUSCITATE Moved to fourth floor Palliative care consult appreciated Hospice at discharge Supervisory-Addendum Brief Verification & Attestation Participated in pt care: history, MDM, physical Personally performed: exam, history, MDM, supervision of care Care discussed with: Medical Student Procedures: n/a Results interpretation: Verified all documentation Verification and Attestation of Medical Student E/M Service A medical student performed and documented this service in my presence. I reviewed and verified all information documented by the medical student and made modifications to such information, when appropriate. I personally performed the physical exam and medical decision making. Silvia Tejeda Aug 02, 2021,05:26 YESSICA OLIVEIRA Aug 01, 2021 12:35 SILVIA TEJEDA DO Aug 02, 2021 05:27
--- NOTE | 2021-08-01 12:45 | Physician Query Clarification ---
Physician Query-General Query to Physician: Clinical Validation Clarification DrSteven : Miller Pozo NSTEMI has been documented in the medical record. After study, do you consider NSTEMI a clinically valid diagnosis? If not cli nically valid, please document "NSTEMI, ruled out" on the progress notes and/or discharge summary. 1. No, NSTEMI, not clinically valid/ruled out 2. Yes, NSTEMI, is a clinically valid diagnosis 3. Other, with explanation of the clinical findings 4. Clinically undetermined, no explanation for the clinical findings Additional information: Hx of CAD, HTN and CKD, Clinical indicators: Only one Troponin level drawn it was 0.063, Per Dr. Henry De Anda "noncardiac elevation of troponin due to acute renal failure this does not represent an acute OH," ECG is indeterminate due to the ventricular paced rhythm. no chest pain or SOB, Treatment: Cardiology consult, Heparin SQ, Aspirin, Please remember a lack of response to the above will prompt a phone page by CDI/coding staff. In responding to this query, please exercise your independent professional judgment. The purpose of this communication is to more accurately reflect the complexity of your patients condition. The fact that a question is asked does not imply that any particular answer is desired or expected. Thank you for timely response to this clarification. Erica Bustillos MSN, RN Clinical Obstetrician/Gynecologist PH [email or web address] PHYSICIAN RESPONSE: Based on the clinical findings in the record, please respond to the query above on this document as an addendum. Physician Response: Physician Response 1 If you have questions please contact: Priming Machine Operator: Ext: Thank you for your time and cooperation. Clinical Obstetrician/Gynecologist/Priming Machine Operator This is a permanent part of the medical record ERICA BUSTILLOS Aug 01, 2021 12:45 ELIZABETH POZO DO Aug 01, 2021 14:32
--- NOTE | 2021-08-01 13:06 | Physician Query Clarification ---
Physician Query-General Query to Physician: The medical record reflects the following clinical scenario: The patient, in the setting of Risk Factor(s): Hx: CAD, HFrEF, advanced age, no documentation of home 02 use Clinical Indicators: O2 sat down to 84% on 35% and 90% on 100% (P/F, 60-140), RR 30s to 40s, Documentation of shortness of air at rest per nursing Treatment: bilevel BiPAP, Supplemental 02 35 - 100 % for about 6 hours then 2L continuous, Albuterol QID and PRN Question: Do you agree with the impression of Acute hypoxic respiratory failure per Dr. Hal Desai? 1. Yes; will document Acute Hypoxic Respiratory Failure in the Progress Notes 2. No; will continue current documentation in the Progress Notes 3. Other; will document explanation of clinical findings 4. Clinically undetermined; no explanation for clinical findings Please clarify and document your clinical opinion in the Progress Notes and Discharge Summary including the definitive and/or presumptive diagnosis, (suspected or probable), related to the above clinical findings. Please include clinical findings supporting your diagnosis. In responding to this query, please exercise your independent professional judgment. The purpose of this communication is to more accurately reflect the complexity of your patients condition. The fact that a question is asked does not imply that any particular answer is desired or expected. Please remember a lack of response to the above will prompt a phone page by CDI/coding staff Thank you for timely response to this clarification. Erica Jacobs MSN, RN Clinical Job Setter [phone] [email or web address] PHYSICIAN RESPONSE: Based on the clinical findings in the record, please respond to the query above on this document as an addendum. Physician Response: Physician Response yes If you have questions please contact: Business Information Analyst: Ext: Thank you for your time and cooperation. Clinical Job Setter/Business Information Analyst This is a permanent part of the medical record ERICA JACOBS Aug 01, 2021 13:06 ELIZABETH POZO DO Aug 01, 2021 14:33
[2021-08-01] MEDS ORDERED: VITAMIN D3 25 MCG (1,000 UNITS) TABLET PO SCH (18:00)
[2021-08-01] MEDS: ACETAMINOPHEN 325 MG TABLET PO PRN (22:08)
[2021-08-02 04:23] VITALS: BP 103/55
[2021-08-02] MEDS: inSUlin ASPART (NovoLOG) 1 UNIT/0.01 ML (CHARGE PER UNIT) SC SCH (05:36)
[2021-08-02 06:06] LABS: BASOPHILS # (AUTO) 0.1 10^3/uL (0.0-0.1); BASOPHILS % (AUTO) 1 % (0-10); EOSINOPHILS # (AUTO) 0.6 10^3/uL (0.0-0.3); EOSINOPHILS % (AUTO) 10 % (0-10); HEMATOCRIT 24 % (35-52); HEMOGLOBIN 7.4 g/dL (11.5-16.0); LYMPHOCYTES # (AUTO) 1.2 10^3/uL (1.0-4.0); LYMPHOCYTES % (AUTO) 20 % (12-44); MEAN CORPUSCULAR HEMOGLOBIN 29 pg (25-34); MEAN CORPUSCULAR HGB CONC 32 g/dL (32-36); MEAN CORPUSCULAR VOLUME 91 fL (80-99); MEAN PLATELET VOLUME 12.7 fL (9.0-12.2); MONOCYTES # (AUTO) 0.6 10^3/uL (0.0-1.0); MONOCYTES % (AUTO) 10 % (0-12); NEUTROPHILS # (AUTO) 3.5 10^3/uL (1.8-7.8); NEUTROPHILS % (AUTO) 59 % (42-75); PLATELET COUNT 123 10^3/uL (130-400)
[2021-08-02 06:20] LABS: ALBUMIN 3.2 GM/DL (3.2-4.5); POTASSIUM 4.4 MMOL/L (3.6-5.0)
[2021-08-02 06:21] LABS: CALCIUM 8.7 MG/DL (8.5-10.1)
[2021-08-02 06:22] LABS: TOTAL PROTEIN 5.5 GM/DL (6.4-8.2)
[2021-08-02 06:24] LABS: BILIRUBIN,TOTAL 0.3 MG/DL (0.1-1.0)
[2021-08-02 06:26] LABS: CREATININE SERUM 3.39 MG/DL (0.60-1.30)
[2021-08-02 07:40] VITALS: BP 122/68
[2021-08-02] MEDS: CLOPIDOGREL 75 MG (PLAVIX) TABLET PO SCH (08:42)
[2021-08-02] MEDS: SERTRALINE 50 MG (ZOLOFT) TABLET PO SCH (08:42)
[2021-08-02] MEDS: ASPIRIN 81 MG CHEW (CHILDREN'S ASA) PO SCH (08:42)
[2021-08-02] MEDS: LORATADINE (CLARITIN) 10 MG TAB PO SCH (08:42)
[2021-08-02] MEDS: RT-ALBUTEROL SULF 2.5 MG/3 ML PRE-MIX VIAL INH SCH ×2 (08:56→11:19)
[2021-08-02] MEDS ORDERED: ASCORBIC ACID PO SCH (09:00)
[2021-08-02] MEDS ORDERED: [UNRECOGNIZED DRUG - OTHER] PO SCH (09:00)
[2021-08-02] MEDS ORDERED: CRANBERRY PO SCH (09:00)
[2021-08-02 09:04] VITALS: BP 122/68
--- NOTE | 2021-08-02 09:59 | Cardiology Progress Note ---
Progress Note-Cardiology Events since last exam Date Seen by Provider: Aug 02, 2021 Time Seen by Provider: 09:58 Events since last exam I am following her for heart failure. She feels as though her breathing is back to baseline. She denies chest discomfort, palpitations, syncope, or ankle edema. She normally follows with a white goods appliance tech in [place], [place]. Certain portions of this document may have been dictated utilizing voice recognition technology. Inherent to this technology, typographical and grammatical errors may exist. As much as I am diligent to identify and correct these mistakes, some errors may remain in the document. Vitals Last set of Vitals Signs Vital Signs 08/02/21 08/02/21 08/02/21 08/02/21 08:56 09:04 11:00 11:19 Temp 37.0 Pulse 78 Resp 20 B/P (MAP) 115/66 (82) Pulse Ox 95 O2 Delivery Room Air O2 Flow Rate 1.50 FiO2 26 Labs Labs Laboratory Tests 08/02/21 05:43 08/02/21 06:04 Exam Vital Signs Vital Signs Date Time Temp Pulse Resp B/P (MAP) Pulse Ox O2 Delivery O2 Flow Rate FiO2 08/02/21 11:19 95 Room Air 08/02/21 11:00 37.0 78 20 115/66 (82) 08/02/21 09:04 26 08/02/21 08:56 1.50 Physical Exam General: Alert. No acute distress. Eye: No xanthelasma. HENT: Normocephalic. Neck: Jugular venous pressure does not appear elevated. Respiratory: Lungs are clear to auscultation but decreased at the bases bilaterally. Respirations are non-labored. Breath sounds are equal. Symmetrical chest wall expansion. Cardiovascular: Normal rate. Regular rhythm. 3/6 systolic ejection murmur. No gallop. No edema. Gastrointestinal: Soft. Normal bowel sounds. Skin: Warm. Dry. Neurologic: Alert and oriented to person, place, time. Cranial nerves 3-11 grossly intact. Psychiatric: Cooperative. Appropriate mood & affect. Labs Laboratory Tests Test 08/01/21 15:44 08/01/21 20:49 08/02/21 04:54 08/02/21 05:43 Range/Units Glucometer 132 H 207 H 118 H 70-110 MG/DL White Blood Count 6.0 4.3-11.0 10^3/uL Red Blood Count 2.57 L 3.80-5.11 10^6/uL Hemoglobin 7.4 L 11.5-16.0 g/dL Hematocrit 24 L 35-52 % Mean Corpuscular Volume 91 80-99 fL Mean Corpuscular Hemoglobin 29 25-34 pg Mean Corpuscular Hemoglobin Concent 32 32-36 g/dL Red Cell Distribution Width 14.4 10.0-14.5 % Platelet Count 123 L 130-400 10^3/uL Mean Platelet Volume 12.7 H 9.0-12.2 fL Immature Granulocyte % (Auto) 0 % Neutrophils (%) (Auto) 59 42-75 % Lymphocytes (%) (Auto) 20 12-44 % Monocytes (%) (Auto) 10 0-12 % Eosinophils (%) (Auto) 10 0-10 % Basophils (%) (Auto) 1 0-10 % Neutrophils # (Auto) 3.5 1.8-7.8 10^3/uL Lymphocytes # (Auto) 1.2 1.0-4.0 10^3/uL Monocytes # (Auto) 0.6 0.0-1.0 10^3/uL Eosinophils # (Auto) 0.6 H 0.0-0.3 10^3/uL Basophils # (Auto) 0.1 0.0-0.1 10^3/uL Immature Granulocyte # (Auto) 0.0 0.0-0.1 10^3/uL Test 08/02/21 06:04 08/02/21 11:19 Range/Units Sodium Level 139 135-145 MMOL/L Potassium Level 4.4 3.6-5.0 MMOL/L Chloride Level 104 98-107 MMOL/L Carbon Dioxide Level 24 21-32 MMOL/L Anion Gap 11 5-14 MMOL/L Blood Urea Nitrogen 73 H 7-18 MG/DL Creatinine 3.39 #H 0.60-1.30 MG/DL Estimat Glomerular Filtration Rate 13 BUN/Creatinine Ratio 22 Glucose Level 115 H 70-105 MG/DL Calcium Level 8.7 8.5-10.1 MG/DL Corrected Calcium 9.3 8.5-10.1 MG/DL Total Bilirubin 0.3 0.1-1.0 MG/DL Aspartate Amino Transf (AST/SGOT) 18 5-34 U/L Alanine Aminotransferase (ALT/SGPT) 9 0-55 U/L Alkaline Phosphatase 38 L 40-136 U/L Total Protein 5.5 L 6.4-8.2 GM/DL Albumin 3.2 3.2-4.5 GM/DL Glucometer 143 H 70-110 MG/DL Diagnosis/Problems Diagnosis/Problems (1) Acute on chronic HFrEF (heart failure with reduced ejection fraction) Status: Acute Assessment & Plan: Despite being dehydrated with acute renal failure, she does have probable ongoing heart failure. She received a fair amount of intravenous fluids which have now been discontinued but may have had caused flash pulmonary edema on 07/31. Unclear whether or not she has cardiorenal syndrome or just developed worsening renal function due to poor oral intake at home prior to admission on top of a stronger dose of diuretic over the past couple of weeks prior to admission. At this point, I would just recommend a 2 L/day fluid rest riction. She has been receiving her low-dose carvedilol. She is not a candidate for any of the other medications for heart failure due to her poor renal function. The plan is for discharge to home today. (2) Cardiomyopathy Assessment & Plan: She has severe left ventricular systolic dysfunction. As above, she has been receiving low-dose carvedilol. Also as above, she is not presently a candidate for any of the other guideline directed medical therapy due to the acute renal failure. (3) Elevated troponin Status: Acute Assessment & Plan: She is not having any angina. Her ECG is indeterminate due to the ventricular paced rhythm. I suspect this is noncardiac elevation of the troponin due to her acute renal failure and does not represent an acute myocardial infarction. Furthermore, she would not be a candidate for an invasive cardiac evaluation due to her poor renal function. I recommend we just continue the current medication. (4) Coronary artery disease without angina pectoris Assessment & Plan: She is not having any angina. I recommend she continue on aspirin, beta-maureen, and statin medication. I do not believe she is having an acute myocardial infarction but rather, has noncardiac elevation of the troponin due to the profound acute renal failure as outlined above. (5) Aortic stenosis Status: Chronic Assessment & Plan: She has severe aortic stenosis. This is being followed by her regular white goods appliance tech in [place], [place]. This condition is also making fluid management difficult. In light of the aortic stenosis, I would be cautious with afterload reducing medications and large doses of intravenous diuretic. (6) Sick sinus syndrome Assessment & Plan: She has a permanent pacemaker in place that appears to be functioning normally. (7) Pulmonary hypertension Assessment & Plan: This is most likely related to the chronic underlying heart failure as well as her valvular heart disease. (8) Acute kidney injury superimposed on chronic kidney disease Status: Acute Assessment & Plan: Her renal function appears to be very slowly improving. I would avoid any further diuretic unless absolutely needed. YESSICA WHITTEN JR, MD Aug 02, 2021 09:59
[2021-08-02] MEDS ORDERED: SERT50TA2 PO (10:35)
--- NOTE | 2021-08-02 10:36 | Discharge Summary ---
Discharge Summary Hospital Course Was the Problem List Reviewed?: Yes Problems/Dx: (1) Acute on chronic HFrEF (heart failure with reduced ejection fraction) Status: Acute (2) Cardiomyopathy (3) Elevated troponin Status: Acute (4) Coronary artery disease without angina pectoris (5) Aortic stenosis Status: Chronic (6) Sick sinus syndrome (7) Pulmonary hypertension (8) Acute kidney injury superimposed on chronic kidney disease Status: Acute Hospital Course Date of Admission: Jul 29, 2021 at 13:03 Admission Diagnosis : Family Physician/Provider: Nick Macdonald DO Date of Discharge: 08/02/21 Discharge Diagnosis: End-stage renal disease refuses dialysis and not a candidate due to advanced age and comorbidities, systolic dysfunction congestive heart failure Hospital Course: 07/29/2021 - 89-year-old female with past medical history of HFrEF (LVEF 25-30% on echo from 06/2020), CAD with stenting, pulmonary hypertension, CKD III, and SSS now with pacemaker/defib coming in via EMS from home due to general weakness, nausea, and diarrhea. She says she is unsure of the true start date of this, but she believes it has been going on for a couple weeks. She did get her Covid booster shot last and noticed symptoms have been worsening si nce then. Consistent diarrhea including 2 episodes that are nonbloody today. Persistent nausea as well with no vomiting. She says she has essentially no appetite and has not had anything to eat today. Last took her medications last night but did not take them this morning. She says she also feels like things started going downhill during her last admission when she went from Lasix 20 mg to 40 mg. She says she feels like she is dehydrated. She also believes she has lost a significant amount of weight in the past several months because of lack of appetite. She is otherwise denying any chest pain, shortness of breath, fever, vomiting, dysuria, urinary frequency, abdominal pain, focal weakness or numbness, or any other concerns. EMS reports starting an IV, giving IV fluids, and giving 4mg of zofran prior to arrival. 07/30/2021 - pt was moved to medical floor for supportive care and eval. Dr. Marie, Cardiology consulted pt - Reason for consultation: Elevated troponin level and heart failure. Extensive past cardiac history. She normally follows with Dr. Lyons from [place], [place]. She was actually here in our hospital back in April,. After discharge from that hospitalization, she had followed up with Dr. Lyons who recommended she double her dose of furosemide. That was a few weeks ago. After adjusting her medication, she started having diarrhea. She has also had poor appetite with decreased intake of both food and liquids. She has also been having severe nausea. Yesterday she felt very weak and had severe nausea and came to the hospital for further evaluation. She was found to be in acute renal failure and had an elevated troponin level. Because of this, a cardiology consultation was requested. She was given intravenous fluids overnight and continues on lactated Ringer's at 100 mL's per hour. She states her nausea is improved. She denies dyspnea. She had been having some dyspnea on exertion at home but only after she overexerted. She denies chest discomfort, paroxysmal nocturnal dyspnea, insomnia, palpitations, lightheadedness, syncope, or lower extremity edema. She has been using oxygen as needed at home. She states she would not want dialysis but would want to be intubated if needed. 07/31/2021 - Last evening her oxygen requirements started increasing. At this morning, she had been turned up to 15 L of oxygen. Soon after the patient woke up this morning, she became extremely short of breath. She called for help. She was placed on BiPAP and transferred to the intensive care unit. Around this time, she was given 40 mg of intravenous Lasix. This afternoon she is off BiPAP and her breathing is improved. She is still not sure if she would want to do dialysis. She has 3 children who live out of state who are now here in [place] and at her bedside. At the present time, she denies chest discomfort, dyspnea, palpitations, syncope, or ankle edema. 08/01/2021 Today pt was sitting in a chair at bedside visiting with her daughter. She is in good spirits and does not complain of any pain or any difficulty breathing at this time. (She is on 2L O2 NC) The pt and her daughter are discussing specific future plans for her care. At this time she does not want dialysis. Yesterday she discussed with the hospitalist that she would not want to be intubated. Today she states she would not want to have CPR if she had cardiac arrest. She would want defibrillation and chemical code. 08/02/2021 - Today breathing well and eating well. Will DC home today with family and hospice support - she aggress to plans of DNR. YESSICA OLIVEIRA Aug 02, 2021 11:09 Labs and Pending Lab Test: Laboratory Tests 08/01/21 11:08: Glucometer 143H 08/01/21 15:44: Glucometer 132H 08/01/21 20:49: Glucometer 207H 08/02/21 04:54: Glucometer 118H 08/02/21 05:43: White Blood Count 6.0, Red Blood Count 2.57L, Hemoglobin 7.4L, Hematocrit 24L, Mean Corpuscular Volume 91, Mean Corpuscular Hemoglobin 29, Mean Corpuscular Hemoglobin Concent 32, Red Cell Distribution Width 14.4, Platelet Count 123L, Mean Platelet Volume 12.7H, Immature Granulocyte % (Auto) 0, Neutrophils (%) (Auto) 59, Lymphocytes (%) (Auto) 20, Monocytes (%) (Auto) 10, Eosinophils (%) (Auto) 10, Basophils (%) (Auto) 1, Neutrophils # (Auto) 3.5, Lymphocytes # (Auto) 1.2, Monocytes # (Auto) 0.6, Eosinophils # (Auto) 0.6H, Basophils # (Auto) 0.1, Immature Granulocyte # (Auto) 0.0 08/02/21 06:04: Sodium Level 139, Potassium Level 4.4, Chloride Level 104, Carbon Dioxide Level 24, Anion Gap 11, Blood Urea Nitrogen 73H, Creatinine 3.39#H, Estimat Glomerular Filtration Rate 13, BUN/Creatinine Ratio 22, Glucose Level 115H, Calcium Level 8.7, Corrected Calcium 9.3, Total Bilirubin 0.3, Aspartate Amino Transf (AST/SGOT) 18, Alanine Aminotransferase (ALT/SGPT) 9, Alkaline Phosphatase 38L, Total Protein 5.5L, Albumin 3.2 Home Meds Active Reported Furosemide 40 Mg Tablet 40 Mg PO DAILY Carvedilol 3.125 Mg Tablet 3.125 Mg PO BID Aspirin EC (Aspirin) 81 Mg Tablet.dr 81 Mg PO HS Cetirizine HCl 10 Mg Tablet 10 Mg PO DAILY Vitamin D3 (Cholecalciferol (Vitamin D3)) 25 Mcg Capsule 25 Mcg PO 1800 Cranberry Concentrate Softgel (Cranberry Conc/Ascorbic Acid) 1 Each Capsule 1 Each PO DAILY Sertraline HCl 25 Mg Tablet 25 Mg PO BID Metformin HCl 500 Mg Tablet 1,000 Mg PO BID TAKES 2 (500MG) TABS Clopidogrel (Clopidogrel Bisulfate) 75 Mg Tablet 75 Mg PO DAILY Atorvastatin Calcium 40 Mg Tablet 40 Mg PO HS Assessment/Pt Instructions Enroll in hospice Discharge Planning: <30 minutes discharge planning Discharge Physical Examination Vital Signs Vital Signs Date Time Temp Pulse Resp B/P (MAP) Pulse Ox O2 Delivery O2 Flow Rate FiO2 08/02/21 09:04 36.7 81 99 26 08/02/21 09:03 Room Air 08/02/21 08:56 1.50 08/02/21 07:40 20 122/68 (86) General Appearance: No Apparent Distress, WD/WN, Chronically ill, Thin Allergies: Coded Allergies: Sulfa (Sulfonamide Antibiotics) (Verified Allergy, Unknown, 04/24/09) amoxicillin (Verified Allergy, Unknown, 04/23/09) Uncoded Allergies: TRIMOX (Allergy, Mild, 03/31/09) ENVIRONMENTAL (Allergy, Unknown, 06/15/20) nasal drainage Discharge Summary Date of Admission Jul 29, 2021 at 13:03 Date of Discharge Discharge Date: Aug 02, 2021 Admission Diagnosis Acute kidney injury superimposed on chronic kidney disease Discharge Diagnosis DO NOT RESUSCITATE Moved to fourth floor Palliative care consult appreciated Hospice at discharge (1) Acute on chronic HFrEF (heart failure with reduced ejection fraction) Status: Acute Assessment & Plan: Despite being dehydrated with acute renal failure, she does have probable ongoing heart failure. She received a fair amount of intravenous fluids which have now been discontinued but may have had caused flash pulmonary edema on 07/31. Unclear whether or not she has cardiorenal syndrome or just developed worsening renal function due to poor oral intake at home prior to admission on top of a stronger dose of diuretic over the past couple of weeks prior to admission. At this point, I would just recommend a 2 L/day fluid restriction. He has been receiving her low-dose carvedilol. She is not a candidate for any of the other medications for heart failure due to her poor renal function. (2) Cardiomyopathy Assessment & Plan: She has severe left ventricular systolic dysfunction. Above, she has been receiving low-dose carvedilol. Also as above, she is not presently a candidate for any of the other guideline directed medical therapy due to the acute renal failure. (3) Elevated troponin Status: Acute Assessment & Plan: She is not having any angina. Her ECG is indeterminate due to the ventricular paced rhythm. I suspect this is noncardiac elevation of the troponin due to her acute renal failure and does not represent an acute myocardial infarction. (4) Coronary artery disease without angina pectoris Assessment & Plan: She is not having any angina. I recommend she continue on aspirin, beta-maureen, and statin medication. I do not believe she is having an acute myocardial infarction but rather, has noncardiac elevation of the troponin due to the profound acute renal failure as outlined above. (5) Aortic stenosis Status: Chronic Assessment & Plan: She has severe aortic stenosis. This is being followed by her regular carbon brusher assembler in [place], [place]. This condition is also making fluid management difficult. In light of the aortic stenosis, I would be cautious with afterload reducing medications and large doses of intravenous diuretic. (6) Sick sinus syndrome Assessment & Plan: She has a permanent pacemaker in place that appears to be functioning normally. (7) Pulmonary hypertension Assessment & Plan: This is most likely related to the chronic underlying heart failure as well as her valvular heart disease. (8) Acute kidney injury superimposed on chronic kidney disease Status: Acute Assessment & Plan: Her renal function appears to be very slowly improving. I would suggest we just continue to monitor her renal function closely. I do not see any urgent need to transfer to another facility for dialysis at this time. Furthermore, she is still not sure whether or not she would want dialysis. ELIZABETH POZO DO Aug 02, 2021 10:36
[2021-08-02 11:00] VITALS: BP 115/66
--- NOTE | 2021-08-02 11:09 | Progress Note ---
LEVIMALCOMYESSICA 08/02/21 1109: Progress Note 07/29/2021 - 89-year-old female with past medical history of HFrEF (LVEF 25-30% on echo from 06/2020), CAD with stenting, pulmonary hypertension, CKD III, and SSS now with pacemaker/defib coming in via EMS from home due to general weakness, nausea, and diarrhea. She says she is unsure of the true start date of this, but she believes it has been going on for a couple weeks. She did get her Covid booster shot last and noticed symptoms have been worsening since then. Consistent diarrhea including 2 episodes that are nonbloody today. Persistent nausea as well with no vomiting. She says she has essentially no appetite and has not had anything to eat today. Last took her medications last night but did not take them this morning. She says she also feels like things started going downhill during her last admission when she went from Lasix 20 mg to 40 mg. She says she feels like she is dehydrated. She also believes she has lost a significant amount of weight in the past several months because of lack of appetite. She is otherwise denying any chest pain, shortness of breath, fever, vomiting, dysuria, urinary frequency, abdominal pain, focal weakness or numbness, or any other concerns. EMS reports starting an IV, giving IV fluids, and giving 4mg of zofran prior to arrival. 07/30/2021 - pt was moved to medical floor for supportive care and eval. Dr. Marie, Cardiology consulted pt - Reason for consultation: Elevated troponin level and heart failure. Extensive past cardiac history. She normally follows with Dr. Lyons from [place], [place]. She was actually here in our hospital back in April,. After discharge from that hospitalization, she had followed up with Dr. Lyons who rec ommended she double her dose of furosemide. That was a few weeks ago. After adjusting her medication, she started having diarrhea. She has also had poor appetite with decreased intake of both food and liquids. She has also been having severe nausea. Yesterday she felt very weak and had severe nausea and came to the hospital for further evaluation. She was found to be in acute renal failure and had an elevated troponin level. Because of this, a cardiology consultation was requested. She was given intravenous fluids overnight and continues on lactated Ringer's at 100 mL's per hour. She states her nausea is improved. She denies dyspnea. She had been having some dyspnea on exertion at home but only after she overexerted. She denies chest discomfort, paroxysmal nocturnal dyspnea, insomnia, palpitations, lightheadedness, syncope, or lower extremity edema. She has been using oxygen as needed at home. She states she would not want dialysis but would want to be intubated if needed. 07/31/2021 - Last evening her oxygen requirements started increasing. At this morning, she had been turned up to 15 L of oxygen. Soon after the patient woke up this morning, she became extremely short of breath. She called for help. She was placed on BiPAP and transferred to the intensive care unit. Around this time, she was given 40 mg of intravenous Lasix. This afternoon she is off BiPAP and her breathing is improved. She is still not sure if she would want to do dialysis. She has 3 children who live out of state who are now here in [place] and at her bedside. At the present time, she denies chest discomfort, dyspnea, palpitations, syncope, or ankle edema. 08/01/2021 Today pt was sitting in a chair at bedside visiting with her daughter. She is in good spirits and does not complain of any pain or any difficulty breathing at this time. (She is on 2L O2 NC) The pt and her daughter are discussing specific future plans for her care. At this time she does not want dialysis. Yesterday she discussed with the hospitalist that she would not want to be intubated. Today she states she would not want to have CPR if she had cardiac arrest. She would want defibrillation and chemical code. 08/02/2021 - Today breathing well and eating well. Will DC home today with family and hospice support - she aggress to plans of DNR. SILVIA POZO DO 08/03/21 0604: Supervisory-Addendum Brief Verification & Attestation Participated in pt care: history, MDM, physical Personally performed: exam, history, MDM, supervision of care Care discussed with: Medical Student Procedures: n/a Results interpretation: Verified all documentation Verification and Attestation of Medical Student E/M Service A medical student performed and documented this service in my presence. I reviewed and verified all information documented by the medical student and made modifications to such information, when appropriate. I personally performed the physical exam and medical decision making. Silvia Pozo Aug 03, 2021,06:04 YESSICA OLIVEIRA Aug 02, 2021 11:09 SILVIA POZO DO Aug 03, 2021 06:04
== END 2021-08-02 12:11 | disposition hospice, home (50) | DRG 682 ==
LOC: EDUNIT# 11:43 → ER 11:45 → 4TH 13:03 → ICU 07-31 09:15 → 4TH 08-01 12:45
PROVIDERS: ADMIT Internal Medicine; ATTEND Internal Medicine
PROC: 5A09357 Assistance with Respiratory Ventilation, Less than 24 Consecutive Hours, Continuous Positive Airway Pressure (ICD-10-PCS; principal; 2021-07-31)
DX: N17.9 Acute kidney failure, unspecified (principal); I50.23 Acute on chronic systolic (congestive) heart failure; J96.01 Acute respiratory failure with hypoxia; I13.2 Hypertensive heart and chronic kidney disease with heart failure and with stage 5 chronic kidney disease, or end stage renal disease; N18.6 End stage renal disease; E11.22 Type 2 diabetes mellitus with diabetic chronic kidney disease; Z66 Do not resuscitate; I49.5 Sick sinus syndrome; Z95.0 Presence of cardiac pacemaker; I25.10 Atherosclerotic heart disease of native coronary artery without angina pectoris; Z87.891 Personal history of nicotine dependence; Z95.5 Presence of coronary angioplasty implant and graft; E78.00 Pure hypercholesterolemia, unspecified; M19.90 Unspecified osteoarthritis, unspecified site; G89.29 Other chronic pain; Z20.822 Contact with and (suspected) exposure to COVID-19; F41.9 Anxiety disorder, unspecified; I35.0 Nonrheumatic aortic (valve) stenosis; K52.9 Noninfective gastroenteritis and colitis, unspecified; F32.A Depression, unspecified; R77.8 Other specified abnormalities of plasma proteins; Z79.82 Long term (current) use of aspirin; Z79.84 Long term (current) use of oral hypoglycemic drugs; Z79.899 Other long term (current) drug therapy; I25.5 Ischemic cardiomyopathy; I27.20 Pulmonary hypertension, unspecified
CPT/HCPCS: 36415; 71045; 80048; 80053; 81000; 82805; 82947; 83735; 83880; 84484; 85025; 85027; 85610; 85730; 87636; 93005; 93041; 94640; 94660; 94760